=== PATIENT | male | born 1950 | race Caucasian/White ===

== ENCOUNTER 2017-07-30 08:56 | Day surgery (SDC) | payer MEDICARE, OTHER ==
[2017-07-30] VITALS (21 sets, daily range): BP systolic 100–192; BP diastolic 57–103; PULSE 76–87; RESP 9–22; Ht 172.7 cm; Wt 60.6 kg
[~2017-07-30] VITALS: Ht 172.7 cm; Wt 60.6 kg
[~2017-07-30 08:56] MED LIST: DIAZEPAM 5 MG TAB PO ONE; METF1000 PO; SOD CHLORIDE 0.9% 1,000 ML IV SCH
[2017-07-30] MEDS ORDERED: ASPI-664 PO (09:36)
[2017-07-30] MEDS ORDERED: CANA100T PO (09:36)
[2017-07-30] MEDS ORDERED: DOCU250C68 PO (09:37)
[2017-07-30] MEDS ORDERED: THYR30TA PO (09:38)
[2017-07-30] MEDS ORDERED: LISI-313 PO ×2 (09:38→13:26)
[2017-07-30] MEDS ORDERED: OMEP20CA16 PO (09:38)
[2017-07-30] MEDS ORDERED: CHOL100062 PO (09:39)
[2017-07-30] MEDS ORDERED: DICL112S2 TP (09:41)
[2017-07-30] MEDS ORDERED: LANT3I SC (09:43)
[2017-07-30] MEDS ORDERED: HEPARIN 1000 UNITS/NS (A-LINE) 1,000 ML ONE (11:08)
[2017-07-30] MEDS ORDERED: LIDOCAINE 1% (MDV) 20 ML INJ ONE (11:08)
[2017-07-30] MEDS ORDERED: IODIXANOL LOCM 100 ML BTL ONE ×2 (11:09→13:10)
[2017-07-30] MEDS ORDERED: HEPARIN 1000 UNITS/ML 10 ML INJ ONE (11:12)
[2017-07-30] MEDS ORDERED: NITROGLYCERIN (IC) 100 MCG/ML INJ ONE (11:13)
[2017-07-30] MEDS ORDERED: VERAPAMIL 5 MG INJ ONE (11:13)
[2017-07-30] MEDS ORDERED: MIDAZOLAM 1 MG/ML 2 ML INJ ONE (11:25)
[2017-07-30] MEDS ORDERED: FENTAnyl 50 MCG/ML VIAL ONE (11:25)
[2017-07-30 11:52] LABS: BASOPHIL # 0.1 10^3/ul (0.0-0.1); BASOPHILS % 0.7 % (0.0-2.0); EOSINOPHILS # 0.2 10^3/ul (0.0-0.5); EOSINOPHILS % 3.4 % (0.0-7.0); HEMATOCRIT 31.9 % (42.0-52.0); HEMOGLOBIN 10.7 g/dl (14.0-18.0); INR 1.03; LYMPHOCYTES # 2.4 10^3/ul (0.8-2.9); LYMPHOCYTES % 33.3 % (15.0-51.0); MEAN CORPUSCULAR HEMOGLOBIN 31.2 pg (29.0-33.0); MEAN CORPUSCULAR HGB CONC 33.5 g/dl (32.0-37.0); MEAN PLATELET VOLUME 9.9 fl (7.4-10.4); MONOCYTE # 0.6 10^3/ul (0.3-0.9); MONOCYTES % 8.3 % (0.0-11.0); NEUTROPHILS % 53.9 % (39.0-77.0); PLATELET COUNT 228 10^3/UL (140-415); PROTIME 13.5 Sec (12.2-14.2); PT RATIO 1.1; RED BLOOD COUNT 3.43 10^6/ul (4.70-6.10); RED CELL DISTRIBUTION WIDTH 13.5 % (11.5-14.5); WHITE BLOOD COUNT 7.1 10^3/ul (4.8-10.8)
[2017-07-30 12:05] LABS: CALCIUM 9.6 mg/dl (8.4-10.2); CREATININE 0.81 mg/dl (0.61-1.24); POTASSIUM 4.4 mmol/L (3.5-5.1)
[2017-07-30] MEDS ORDERED: ADENOSINE 90 MG in SOD CHLORIDE 0.9% 90 ML IV SCH (12:30)
[2017-07-30] MEDS ORDERED: SOD CHLORIDE 0.45% 1,000 ML IV SCH (13:18)
[2017-07-30] MEDS ORDERED: ONDANSETRON 4 MG INJ IV PRN (13:30)
[2017-07-30] MEDS ORDERED: morphine 2 MG INJ IV PRN (13:30)
[2017-07-30] MEDS ORDERED: AL HYDROX/MG HYDROX/SIMETH 30 ML CUP PO PRN (13:30)
[2017-07-30] MEDS ORDERED: ACETAMINOPHEN 325 MG TAB PO PRN (13:30)
[2017-07-30] MEDS ORDERED: HOLD all METFORMIN and METFORMIN CONTAINING medications for 48 hours post procedure. Chec XX SCH (13:30)
--- NOTE | 2017-07-30 13:35 | OPR ---
Date/Time of Note Date/Time of Note DATE: 07/30/17 TIME: 13:27 Operative Report Free Text/Dictation Post op short note: Procedure performed 1) Left Heart Catheterization 2) FFR study of LAD and LM 3) Abdominal aortogram with bilateral lower extremity runoff 4) Selective angiogram of right and left common femoral artery with runoff Access: R radial, closure with TR band pressure Medications: IV heparin, IV fentanyl, IV versed, IA nitroglycerine, verapamil, IC nitroglycerine Cath Findings: - LM 30% ostial - LAD: 60% mid LAD prior to patent, diffuse disease in distal LAD - LCx: non dominant mid 50% - RI: no significant disease - RCA: very large dominant vessel with diffuse 20% disease LE angiogram Bilateral common/external iliacs: no signficant disease Bilateral SFA: mild diffuse disease Bilateral Popliteal: no significant disease Bilateral infrapop: patent 3 vessel runoff to foot hemodynamics: LVEDP 26mmHg no sig gradient on pull back Impression: - Patent mid LAD stent with stenosis prior to stent, FFR 0.81 safe to treat medically - FFR of 0.96 of LM - elevated lV filling pressures - no significant PAD with 3 vessel runoff to bilateral feet Recommendations: - medical management of coronary artery disease - improved bp control - workup for alternative etiology of le ulceration - close followup in clinic as outpt MAKENNA ALICEA Jul 30, 2017 13:35
[2017-07-30] MEDS ORDERED: LISINOPRIL 10 MG TAB PO ONE (14:30)
[2017-07-30] MEDS ORDERED: hydrALAzine 20 MG INJ IV ONE (14:30)
--- NOTE | 2017-07-30 17:44 | CARRPT ---
DATE OF PROCEDURE: 07/30/2017 OPERATION PERFORMED: 1. Left heart catheterization. 2. Fractional flow reserve study of the left anterior descending, left main arteries. 3. Abdominal angiogram with bilateral lower extremity runoff. 4. Selective angiogram of the right femoral artery and left femoral artery. SURGEON: Pako Madsen MD REFERRING PHYSICIAN: Jw Sifuentes MD PREOPERATIVE DIAGNOSIS: 1. Coronary artery disease. 2. Angina pectoris. 3. Lower extremity ulceration with peripheral arterial disease. POSTOPERATIVE DIAGNOSIS: 1. Coronary artery disease with patent left anterior descending coronary artery stent and fraction flow reserve 0.81. 2. Mild peripheral arterial disease. DESCRIPTION OF PROCEDURE: Patient was brought to receiver/laborer after informed consent obtained in stable condition. Right wrist was prepped and draped in usual sterile fashion, anesthetized with 1 percent lidocaine solution, 1 mL of solution. Right radial access was obtained with anterior stick method and 6-[place] [employer] slender sheath was placed in right radial artery without difficulty. A 6-[place] TIG 4-0 diagnostic catheter was advanced to the ascending aorta under fluoroscopic guidance. Cine angiograms were then obtained of the left and right coronary arteries. TIG catheter was advanced over a wire to the left ventricle and pressures were obtained including LV to LA pullback. At this point, decision was made to study the mid LAD lesion in more detail. TIG catheter was then exchanged for a XB3.0 6-[place] guiding catheter. ACT was checked and additional IV heparin was given and additionally ACT was checked and confirmed to be in therapeutic range. Intracoronary nitroglycerin was given. A [employer] FFR wire was then normalized in standard fashion and advanced in the distal LAD without difficulty. Adenosine infusion was then initiated IV at a rate of 180 mcg/kg/minute. FFR study showed low at 0.81 across the mid LAD lesion. Pullback to the left main showed FFR value of 0.96. FFR wire was also advanced to the mid left circumflex branch with a value of 0.93. FFR wire was then removed and angiograms were obtained showing no evidence of complication with FFR procedure. XP catheter was then removed and exchanged for a 6-[place] straight pigtail catheter was advanced over a wire to the abdominal aorta. Abdominal aorta with bilateral external iliac and lower extremity runoff was obtained. Patient's angiograms were obtained. It was unclear whether there was complete 3-vessel runoff to the legs and, therefore, pigtail catheter was exchanged for a 150 cm Onlen catheter with 4-[place] was then advanced to the left common femoral artery under ultrasound guidance. Common femoral selective angiogram with runoff to the left foot was obtained. Nolen catheter was then withdrawn and advanced over wire to the right common femoral artery under fluoroscopic guidance. Again, selective angiogram was obtained of common femoral artery with runoff to the foot on the right side. At this point, procedure was concluded. All catheter and wires were removed. TR band was used to obtain hemostasis of the right radial artery without difficulty. Patient tolerated procedure well without complication. ESTIMATED BLOOD LOSS: Less than 30 mL. COMPLICATIONS: None. SPECIMEN OBTAINED: None. HEMODYNAMICS: LVEDP is 26 mmHg without significant gradient on LV or LA pullback. OPERATIVE FINDINGS AT SURGERY: Coronary Anatomy 1. Left main: Ostial 30 percent stenosis. 2. LAD: Proximal LAD is without significant disease. There is a high diagonal 1 vessel which has a proximal 20-30 percent lesion, TIMI3 flow. The mid LAD after D1 vessel has a 60 percent stenosis and is immediately followed by patent LAD stent which has mild 30 percent in-stent restenosis. Distal LAD has diffuse 20-30 percent disease. There is a D2 vessel which is jailed by the mid LAD stent which has a severe, diffuse 99 percent disease and a small vessel with TIMI2 flow. 3. Left circumflex: Nondominant vessel. There is a high OM1 branch which has no significant disease. The left circumflex has a mid 50 percent lesion which is long. There is also smaller OM2 and OM3 vessels without disease. 4. Right coronary artery: A very large dominant artery. There is diffuse, proximal disease 20 percent. The mid RCA has a long 20-30 percent lesion as well. Distal RCA has a early bifurcation of a large posterolateral and RPDA system which have mild 20 percent diffuse disease. Abdominal Aortogram: No significant ectasia or aneurysm noted in the lower abdominal aorta. Bifurcates into large bilateral common iliac arteries which are without disease. External iliacs are without disease bilaterally with patent internal iliac arteries bilaterally. On the right, there is patent profunda femoral artery and large SFA which has mild disease in the proximal 10-20 percent. The right mid SFA has diffuse moderate calcification and diffuse 10-20 percent disease. The distal SFA has mild 20 percent disease. The right popliteal artery without disease. It bifurcates into a large anterior tibial artery and tibial peroneal artery which are without disease. The TP artery bifurcates into the posterior tibial and peroneal artery which are patent to the foot without significant disease. The peroneal stops at the ankle and the AT continues onto the anterior tibial on the posterior tibial in the foot as well as the posterior tibial patent and running to the posterior tibial artery in the right foot. On the left, the left external iliac gives rise to the left common femoral artery without disease. The left profunda femoral artery is patent as well. The left SFA is without significant disease in the proximal portion. The mid portion has mild 10 percent luminal irregularities. No significant disease. The left popliteal is without disease. It gives rise to a large anterior tibial artery which is without disease as well as a tibial peroneal artery which is without disease. The TP artery bifurcates to a peroneal artery as well as dorsalis pedis artery which runs to the foot. The proximal peroneal and TP arteries both have mild 20-30 percent stenosis. There does also appear to be a 50-60 percent lesion noted in the mid right posterior tibial artery. FFR Study: Left main 0.96, mid LAD 0.81. IMPRESSION: 1. [id number] coronary artery disease with patent mid left anterior descending artery stent and [id number] in- stent restenosis. Fractional flow reserve across pre-stent lesion is 0.81. for PCI and continue with medical management. 2. Small second diagonal vessel which is jailed. 3. Mild peripheral arterial disease. RECOMMENDATIONS: 1. Continue maximal medical therapy for coronary artery disease with titration of antianginals and improve blood pressure control as well as aspirin and statin therapy. 2. Continue treatment for mild peripheral arterial disease. This is unlikely cause of current ulceration. Alternative etiology should be evaluated as outpatient. 3. Results were discussed with patient and will be followed up closely as outpatient in clinic. Dictated By: Pako Madsen MD /sacha/maddison Garcia#: [id number]/Document#: [id number]
== END 2017-07-30 19:00 | disposition home or self-care (01) ==
LOC: SDS 08:56
PROVIDERS: ATTEND Internal Medicine Interventional Cardiology
DX: I25.119 Atherosclerotic heart disease of native coronary artery with unspecified angina pectoris (principal); I73.9 Peripheral vascular disease, unspecified; L97.929 Non-pressure chronic ulcer of unspecified part of left lower leg with unspecified severity; I10 Essential (primary) hypertension; E03.9 Hypothyroidism, unspecified
CPT/HCPCS: 75630; 80048; 82962; 85025; 85610; 93458; 93571; C1769; C1887; J0153; J0360; J1644; J2250; J3010; Q9967

== ENCOUNTER 2018-07-21 06:50 | Day surgery (SDC) | END 2018-07-21 14:22 | disposition home or self-care (01) ==

== ENCOUNTER 2018-11-26 16:00 | Inpatient (IN) | payer MEDICARE, OTHER ==
[~2018-11-26] VITALS: Ht 172.7 cm; Wt 66.7 kg
[~2018-11-26 16:00] MED LIST changes: +ASPI81TA52 PO; +DAPA10TA PO; -DIAZEPAM 5 MG TAB PO ONE; +DOCU250C68 PO; +LANT3I SC; +LISI-313 PO; -METF1000 PO; +METF100010 PO; +OMEP20CA16 PO; -SOD CHLORIDE 0.9% 1,000 ML IV SCH; +THYR30TA PO
[2018-11-26] MEDS ORDERED: ALBUTEROL 0.5% (NEB) 2.5 MG/0.5 ML AMP INH STA (16:45)
[2018-11-26] MEDS ORDERED: SODIUM CHLORIDE 0.9% 1L BAG IV* STA ×2 (16:45)
[2018-11-26] MEDS ORDERED: METHYLPREDNISOLONE 125 MG INJ IV STA (16:45)
[2018-11-26] MEDS ORDERED: IPRATROPIUM (NEB) 0.5 MG/2.5 ML AMP INH STA (16:45)
[2018-11-26] MEDS ORDERED: IBUPROFEN 600 MG TAB PO ONE (17:00)
[2018-11-26] MEDS ORDERED: METO-335 PO (17:04)
[2018-11-26] MEDS ORDERED: METF100010 PO (17:04)
[2018-11-26] MEDS ORDERED: GABA-526 PO (17:04)
[2018-11-26] MEDS ORDERED: PENT400T9 PO (17:05)
[2018-11-26] MEDS ORDERED: AMLO-147 PO (17:05)
[2018-11-26] MEDS ORDERED: DICL2SOL TP (17:07)
[2018-11-26] MEDS ORDERED: ASPI-817 PO (17:07)
[2018-11-26] MEDS ORDERED: ALEN70TA5 PO (17:08)
[2018-11-26] MEDS ORDERED: FER325 PO (17:08)
[2018-11-26] MEDS ORDERED: DAPA10TA PO (17:08)
[2018-11-26] MEDS ORDERED: LANT3I SC (17:09)
[2018-11-26] MEDS ORDERED: ERGO500013 PO (17:09)
[2018-11-26] MEDS ORDERED: ATOR20TA38 PO (17:10)
[2018-11-26] MEDS: CEFTRIAXONE 1 GM/50 ML (PMX) 50 ML IVPB ONE ×2 (17:11→17:23)
[2018-11-26] MEDS ORDERED: AZITHROMYCIN 500MG/NS (PMX) 250 ML IVPB ONE (18:00)
[2018-11-26] MEDS ORDERED: CEFEPIME 1GM/50 ML (PMX) 50 ML IVPB ONE (18:00)
--- NOTE | 2018-11-26 19:18 | ERD ---
ER Documentation Chief Complaint Chief Complaint BIB RA for: CP HPI 67-year-old man brought in by EMS from senior living for complaints of chest pain. Patient has been coughing today and has felt short of breath, he has had thick purulent mucus secretions with cough. He states the chest pain is sharp and precipitated by coughing. He has had no calf or leg swelling, no vomiting or diarrhea. HPI was limited given the patient's mental status although was supplemented by speaking to him, reviewing past medical history, reviewing senior living records, and speaking to EMS. ROS All systems reviewed and are negative except as per history of present illness. Medications Home Meds Reported Medications Atorvastatin Calcium* (Atorvastatin Calcium*) 20 Mg Tablet, 20 MG PO QHS, #30 TAB 11/26/18 Insulin Glargine* (Lantus*) 100 Unit/Ml Soln, 20 UNIT SC DAILY, #1 VIAL 11/26/18 Ergocalciferol (Vitamin D2) (VITAMIN D2) 50,000 Unit Capsule, 24138 UNIT PO Q7D, CAP 11/26/18 Ferrous Sulfate* (Ferrous Sulfate*) 325 Mg Tabec, 325 MG PO BID, TAB 11/26/18 Dapagliflozin Propanediol (Farxiga) 10 Mg Tablet, 10 MG PO DAILY, #30 TAB 11/26/18 Alendronate Sodium* (Fosamax*) 70 Mg Tablet, 70 MG PO Q7D, #4 TAB 11/26/18 Aspirin* (Aspirin* EC) 81 Mg Tablet.dr, 81 MG PO DAILY, TAB 11/26/18 Diclofenac Sodium (Pen[place]aid) 2 Gm Soln.pk.g., 2 PUMP TP BID 11/26/18 Pentoxifylline* (Pentoxifylline*) 400 Mg Tablet.sa, 400 MG PO WITH MEALS, TAB 11/26/18 Amlodipine Besylate* (Amlodipine Besylate*) 10 Mg Tablet, 10 MG PO DAILY, #30 TAB 11/26/18 Metformin Hcl* (Metformin Hcl*) 1,000 Mg Tablet, 1000 MG PO WITH BREAKFAST DINNE, #60 TAB 11/26/18 Metoprolol Succinate* (Toprol XL*) 25 Mg Tab.sr.24h, 25 MG PO DAILY, #30 TAB 11/26/18 Gabapentin* (Gabapentin*) 600 Mg Tablet, 600 MG PO TID, #90 TAB 11/26/18 Discontinued Reported Medications Dapagliflozin Propanediol (Farxiga) 10 Mg Tablet, 10 MG PO DAILY, #30 TAB 07/21/18 Insulin Glargine* (Lantus*) 100 Unit/Ml Soln, 13 UNIT SC DAILY, #1 VIAL 07/30/17 Thyroid* ([place] Thyroid*) 30 Mg Tablet, 30 MG PO DAILY, TAB 07/30/17 Omeprazole* (Omeprazole*) 20 Mg Capsule.dr, 20 MG PO DAILY, #30 CAP 07/30/17 Docusate Sodium* (Dok*) 250 Mg Capsule, 250 MG PO BID, #60 CAP 07/30/17 Aspirin (Low Dose Aspirin) 81 Mg Tablet.dr, 81 MG PO DAILY, #30 TAB 07/30/17 Metformin Hcl* (Metformin Hcl*) 1,000 Mg Tablet, 1000 MG PO BID WITH MEALS, TAB 08/12/15 Discontinued Scripts Lisinopril* (Lisinopril*) 5 Mg Tablet, 10 MG PO DAILY, #30 TAB Prov:DEANNEMAKENNA PRUITT 07/30/17 Allergies Allergies: Coded Allergies: No Known Drug Allergies (Verified Allergy, Unknown, 11/26/18) PMhx/Soc Dementia, hypothyroidism, hypertension, gastritis, hyperlipidemia History of Surgery: Yes (CIRCUMCISION) Anesthesia Reaction: No Hx Neurological Disorder: No Hx Respiratory Disorders: No Hx Cardiac Disorders: Yes (HTN, AMI) Hx Psychiatric Problems: Yes (ANXIETY, DEPRESSION) Hx Miscellaneous Medical Probl: Yes (arthritis, osteoporosis) Hx Alcohol Use: Yes (STOPPED) Hx Substance Use: No Hx Tobacco Use: Yes Smoking Status: Former smoker FmHx Family History: No diabetes Physical Exam Vitals Vital Signs Date Temp Pulse Resp B/P (MAP) Pulse Ox O2 O2 Flow FiO2 Time Delivery Rate 11/26/18 119 19 127/62 100 18:35 (83) 11/26/18 92 20 96 21 16:58 11/26/18 93 12 154/80 96 Room Air 16:48 (104) 11/26/18 99.3 97 19 175/90 98 16:22 (118) Physical Exam Const: Febrile, dyspneic otherwise well-developed, appears dehydrated HEENT: Positive oropharyngeal thick secretions, dry mucous membranes Resp: Poor breath sounds bilaterally, scattered wheezes, no stridor Cardio: Tachycardic and regular Abd: Soft, non tender, non distended. Skin: No petechiae or rashes Back: No midline or flank tenderness Ext: No cyanosis, or edema Neur: Awake and alert x2, moving all extremities, no focal deficits or facial asymmetry Psych: Normal Mood and Affect Result Diagram: 11/26/18 1713 11/26/18 1713 Results 24 hrs Laboratory Tests Test 11/26/18 17:13 11/26/18 17:17 11/26/18 17:35 White Blood Count 11.2 10^3/ul Red Blood Count 3.83 10^6/ul Hemoglobin 11.7 g/dl Hematocrit 34.6 % Mean Corpuscular Volume 90.3 fl Mean Corpuscular Hemoglobin 30.5 pg Mean Corpuscular 33.8 g/dl Hemoglobin Concent Red Cell Distribution Width 12.8 % Platelet Count 190 10^3/UL Mean Platelet Volume 10.4 fl Immature Granulocytes % 0.400 % Neutrophils % 73.4 % Lymphocytes % 16.2 % Monocytes % 9.8 % Eosinophils % 0.0 % Basophils % 0.2 % Nucleated Red Blood Cells % 0.0 /100WBC Immature Granulocytes # 0.040 10^3/ul Neutrophils # 8.2 10^3/ul Lymphocytes # 1.8 10^3/ul Monocytes # 1.1 10^3/ul Eosinophils # 0.0 10^3/ul Basophils # 0.0 10^3/ul Nucleated Red Blood Cells # 0.0 10^3/ul Prothrombin Time 14.0 Sec Prothrombin Time Ratio 1.1 INR International 1.07 Normalized Ratio Activated Partial Thromboplast 36.4 Sec Time Sodium Level 135 mmol/L Potassium Level 4.5 mmol/L Chloride Level 96 mmol/L Carbon Dioxide Level 29 mmol/L Anion Gap 10 Blood Urea Nitrogen 32 mg/dl Creatinine 1.08 mg/dl Est Glomerular Filtrat > 60 mL/min Rate mL/min Glucose Level 384 mg/dl Calcium Level 8.9 mg/dl Total Bilirubin 0.8 mg/dl Direct Bilirubin 0.00 mg/dl Indirect Bilirubin 0.8 mg/dl Aspartate Amino 22 IU/L Transf (AST/SGOT) Alanine 15 IU/L Aminotransferase (ALT/SGPT) Alkaline Phosphatase 64 IU/L Troponin I 0.033 ng/ml Total Protein 7.4 g/dl Albumin 4.0 g/dl Globulin 3.40 g/dl Albumin/Globulin Ratio 1.17 Lipase 86 U/L POC Venous Lactate 1.6 mmol/L Urine Color YELLOW Urine Clarity SLIGHTLY CLOUDY Urine pH 5.0 Urine Specific [place] 1.024 Urine Ketones TRACE mg/dL Urine Nitrite NEGATIVE mg/dL Urine Bilirubin NEGATIVE mg/dL Urine Urobilinogen NEGATIVE mg/dL Urine Leukocyte Esterase NEGATIVE Sara/ul Urine Microscopic RBC 3 /HPF Urine Microscopic WBC 1 /HPF Urine Hemoglobin 1+ mg/dL Urine Glucose 3+ mg/dL Urine Total Protein 3+ mg/dl Current Medications Medications Dose Sig/Alok Start Time Status Last (Trade) Ordered Route PRN Stop Time Admin Dose Reason Admin Sodium 1,910 ml BOLUS OVER 2 11/26/18 DC 11/26/18 Chloride HOURS STAT 16:45 17:11 (NS) IV* 11/26/18 16:47 Sodium 2,000 ml BOLUS OVER 2 11/26/18 DC Chloride HOURS STAT 16:45 (NS) IV* 11/26/18 16:47 Ceftriaxone 50 ml @ ONCE ONCE 11/26/18 DC 11/26/18 Sodium 100 mls/hr IVPB 17:00 17:23 11/26/18 17:29 Ibuprofen 600 mg ONCE ONCE 11/26/18 DC 11/26/18 (Motrin) PO 17:00 17:11 11/26/18 17:01 Albuterol 10 mg ONCE STAT 11/26/18 DC 11/26/18 (Proventil INH 16:45 16:57 0.5% (Neb)) 11/26/18 16:47 Ipratropium 1 mg ONCE STAT 11/26/18 DC 11/26/18 [place] INH 16:45 16:58 (Atrovent 11/26/18 0.02% 16:47 (Neb)) 125 mg ONCE STAT 11/26/18 DC 11/26/18 Methylprednis IV 16:45 17:11 olone Sodium 11/26/18 Succinate 16:47 (Solu-Medrol) Cefepime HCl 50 ml @ ONCE ONCE 11/26/18 DC 11/26/18 100 mls/hr IVPB 18:00 17:54 11/26/18 18:29 Azithromycin 250 ml @ ONCE ONCE 11/26/18 DC 11/26/18 250 mls/hr IVPB 18:00 18:43 11/26/18 18:59 Procedures/MDM IV line was established patient was placed on library monitor rhythm strip revealed a sinus rhythm at about 80 bpm with upright P and T waves. Patient was febrile, blood and urine cultures have been ordered results are pending I will follow-up. 1 view chest x-ray performed, read by me revealed atelectatic changes bilaterally, no acute infiltrates, no pneumothorax. EKG performed, read by me revealed a normal sinus rhythm at 88 bpm, normal axis, narrow QRS complex, precordial T wave inversions, no concerning ST elevations or depressions noted. I administered cefepime 1 g IV, azithromycin 500 mg IV, albuterol 10 mg via nebulizer, ipratropium 1 mg via nebulizer, methylprednisolone 125 mg IV x1. Respiratory provided in-line suctioning with copious thick mucus secretions produced. Patient's respiratory status improved his initial oxygen saturation prior to suctioning was in the upper 80s and improved to 98% after suctioning. CBC was unremarkable, electrolytes revealed dehydration with a BUN/creatinine of 32/1, liver function tests were normal, troponin was negative, influenza AB swabs were negative Lactic acid was 1.6 although I do not suspect sepsis. Patient will be admitted to telemetry setting for continued medical management, bronchodilator therapy, IV antibiotics Departure Diagnosis: Primary Impression: Chest pain Chest pain type: unspecified Qualified Codes: R07.9 - Chest pain, unspecified Additional Impressions: Acute asthma Bronchitis Dehydration Condition: DEVEN Reyes MD Nov 26, 2018 19:14
[2018-11-26] MEDS ORDERED: SOD CHLORIDE 0.9% 500 ML IV ONE (20:30)
--- NOTE | 2018-11-26 20:46 | HP ---
Date/Time of Note Date/Time of Note DATE: 11/26/18 TIME: 20:46 Assessment/Plan VTE Prophylaxis Pharmacological prophylaxis: LMWH Lines/Catheters IV Catheter Type (from [facility]): Peripheral IV Assessment/Plan Hospital Course This is a [age]-year-old male being admitted to the telemetry floor for: #1 chest pain: Rule out ACS versus upper respiratory infection. Hx of CAD with stent. Given patient's cardiac history we will rule out for ACS. Will trend cardiac enzymes x3, the first that was negative. Will check an echocardiogram. PRN morphine/nitro. Will consult cardiology . Aspirin daily. #2 Suspect healthcare associated pneumonia: Patient does report fevers and cough times 2 weeks and lives at a SNF apparently per ER record. His lung sounds do appear to be coarse and he does have productive sputum. At the current time we will treat him for presumptive pneumonia. We will obtain a chest x-ray in the a.m. We will put him right now on Zosyn and Vanco. Pro- calcitonin, sputum cultures, respiratory culture. PRN nebulizers. #3 Coronary disease: Resume aspirin statin, beta-ayden. Please see #1. #4 osteoporosis: Continue alendronate #5 diabetes mellitus: Resume home insulin, insulin sliding scale, will hold home oral hypoglycemics. #6 peripheral artery disease: resume pentoxyfiline. #7 DVT and GI prophylaxis: Lovenox, no GI prophylaxis indicated Further treatment strategy will be implemented as per the clinical course. Result Diagram: 11/26/18 1713 11/26/18 1713 Results 24hrs Laboratory Tests Test 11/26/18 17:13 11/26/18 17:17 11/26/18 17:35 White Blood Count 11.2 #H Red Blood Count 3.83 L Hemoglobin 11.7 L Hematocrit 34.6 L Mean Corpuscular Volume 90.3 Mean Corpuscular Hemoglobin 30.5 Mean Corpuscular 33.8 Hemoglobin Concent Red Cell Distribution Width 12.8 Platelet Count 190 Mean Platelet Volume 10.4 Immature Granulocytes % 0.400 Neutrophils % 73.4 Lymphocytes % 16.2 Monocytes % 9.8 Eosinophils % 0.0 Basophils % 0.2 Nucleated Red Blood Cells % 0.0 Immature Granulocytes # 0.040 H Neutrophils # 8.2 H Lymphocytes # 1.8 Monocytes # 1.1 H Eosinophils # 0.0 Basophils # 0.0 Nucleated Red Blood Cells # 0.0 Prothrombin Time 14.0 Prothrombin Time Ratio 1.1 INR International 1.07 Normalized Ratio Activated 36.4 H Partial Thromboplast Time Sodium Level 135 Potassium Level 4.5 Chloride Level 96 L Carbon Dioxide Level 29 Anion Gap 10 Blood Urea Nitrogen 32 H Creatinine 1.08 Est Glomerular Filtrat > 60 Rate mL/min Glucose Level 384 H Calcium Level 8.9 Total Bilirubin 0.8 Direct Bilirubin 0.00 Indirect Bilirubin 0.8 Aspartate Amino 22 Transf (AST/SGOT) Alanine 15 Aminotransferase (ALT/SGPT) Alkaline Phosphatase 64 Troponin I 0.033 Total Protein 7.4 Albumin 4.0 Globulin 3.40 H Albumin/Globulin Ratio 1.17 Lipase 86 POC Venous Lactate 1.6 Urine Color YELLOW Urine Clarity SLIGHTLY CLOUDY A Urine pH 5.0 Urine Specific [place] 1.024 Urine Ketones TRACE A Urine Nitrite NEGATIVE Urine Bilirubin NEGATIVE Urine Urobilinogen NEGATIVE Urine Leukocyte Esterase NEGATIVE Urine Microscopic RBC 3 Urine Microscopic WBC 1 Urine Hemoglobin 1+ H Urine Glucose 3+ H Urine Total Protein 3+ H HPI/ROS Admit Date/Time Admit Date/Time Hx of Present Illness cc: 2 weeks cough, cp x 1 day The following history was obtained from the ED physician documentation as well as from the patient. Please note the patient is a poor historian. 67-year-old man brought in by EMS from [facility] for complaints of chest pain. Patient has been coughing today and has felt short of breath, he has had thick purulent mucus secretions with cough. He states the chest pain is sharp and precipitated by coughing. He has had no calf or leg swelling, no vomiting or diarrhea. Upon my examination patient at the bedside he does not report any chest pain at the current time. he is still coughing significantly with productive sputum. Allergies: NKDA Medications: See Const: As per HPI Eyes : No pain discharge or redness or change in visual acuity ENT: No pain, sore throat, congestion, congestion, dysphagia or discharge Respiratory: As per HPI Cardiovascular: As per HPI GI : no change in appetite, abdominal pain, nausea, vomiting, diarrhea, constipation, or change in the color his stool Genitourinary: No dysuria, hematuria, flank pain , discharge or CVA tenderness Musculoskeletal: No joint pain, back pain, neck pain, restricted range of motion in neck or joints Skin: No rash, bruising or hives Neuro: No headache, dizziness, syncope, seizure, focal weakness Endocrine: No polyuria, polydipsia, temperature intolerance Psych: No hallucination, depression, anxiety or suicidal ideation PMH/Family/Social Past Medical History Iron deficiency anemia, diabetes mellitus, hyperlipidemia, osteoporosis, hypertension, coronary artery disease, peripheral artery disease Medications Current Medications Sodium Chloride 500 ml @ 500 mls/hr Q1H ONCE IV ; Start 11/26/18 at 20:30; Stop 11/26/18 at 21:29 Alendronate Sodium (Fosamax) 70 mg Q7D PO ; Start 11/26/18 at 21:00; Status UNV Aspirin (Halfprin) 81 mg DAILY PO ; Start 11/27/18 at 09:00; Status UNV Atorvastatin Calcium (Lipitor) 20 mg QHS PO ; Start 11/26/18 at 21:00; Status UNV Ergocalciferol (Drisdol) 50,000 unit Q7D PO ; Start 11/26/18 at 21:00; Status UNV Ferrous Sulfate (Ferrous Sulfate (Ec)) 325 mg BID PO ; Start 11/26/18 at 21:00; Status UNV Gabapentin (Neurontin) 600 mg TID PO ; Start 11/26/18 at 21:00; Status UNV Insulin Glargine (Lantus) 20 units DAILY SC ; Start 11/26/18 at 21:00; Status UNV Miscellaneous Information (* Miscellaneous Pharmacy Order) Discontinue current oral sulfonylur... ONCE ONCE XX ; Start 11/26/18 at 21:00; Stop 11/26/18 at 21:01; Status UNV Diagnostic Test (Pha) (Accu-Chek) 1 ea XX ; Start 11/27/18 at 02:00; Status UNV Miscellaneous Information (* Miscellaneous Pharmacy Order) HYPOGLYCEMIA PROTOCOL w... ONCE ONCE XX ; Start 11/26/18 at 21:00; Stop 11/26/18 at 21:01; Status UNV Insulin Aspart (Novolog Insulin Pen) NOVOLOG *MILD* ALGORITHM WITH MEALS BEDTIME SC ; Start 11/26/18 at 21:00; Status UNV Miscellaneous Information (* Miscellaneous Pharmacy Order) Discontinue all previ... ONCE ONCE XX ; Start 11/26/18 at 21:00; Stop 11/26/18 at 21:01; Status UNV IV Flush (NS 3 ml) 3 ml PER PROTOCOL IV ; Start 11/26/18 at 21:00; Status UNV Ondansetron HCl (Zofran Inj) 4 mg Q6H PRN IV NAUSEA AND/OR VOMITING; Start 11/26/18 at 21:00; Status UNV Nitroglycerin (Nitroglycerin (Sl Tab) 0.4 Mg) 1 tab Q5M PRN SL CHEST PAIN; Start 11/26/18 at 21:00; Status UNV Acetaminophen (Tylenol Tab) 650 mg Q6H PRN PO PAIN LEVEL 1-3 OR FEVER; Start 11/26/18 at 21:00; Status UNV Docusate Sodium (Colace) 100 mg Q12H PRN PO CONSTIPATION; Start 11/26/18 at 21:00; Status UNV Bisacodyl (Dulcolax) 5 mg DAILY PRN PO CONSTIPATION; Start 11/26/18 at 21:00; Status UNV Enoxaparin Sodium (Lovenox) 40 mg DAILY SC ; Start 11/26/18 at 21:00; Status UNV Coded Allergies: No Known Drug Allergies (Verified Allergy, Unknown, 11/26/18) Past Surgical History History of cardiac stent Family History Significant Family History: no pertinent family hx Social History Alcohol Use: none Smoking Status: Former smoker Drug Use: none Exam/Review of Systems Vital Signs Vitals Vital Signs Date Temp Pulse Resp B/P (MAP) Pulse Ox O2 O2 Flow FiO2 Time Delivery Rate 11/26/18 107 14 104/49 98 Nasal 2.0 19:56 (67) Cannula 11/26/18 21 16:58 11/26/18 99.3 16:22 Exam Exam General: Patient is currently lying in bed he does not appear to be in any acute distress. He is coughing with a productive cough denies chest pain HEENT: Atraumatic, normocephalic. The pupils are equal, round and reactive. Extraocular motor are intact Neck: Supple with full range of motion. No rigidity or meningismus Chest: Nontender Lungs: Adventitious/coarse breath sounds bilaterally, nonlabored breathing Heart: Normal S1-S2, Regular rhythm and rate. Abdomen: Soft , nontender, nondistended , bowel sounds are present. No guarding no rebound tenderness , No masses or organomegaly. No costovertebral temporal angle mass Extremities: Normal to inspection, no edema no cyanosis Neurologic: Normal mental status, speech normal, cranial nerves II through XII are intact, motor and sensory are intact, no focal weakness Additional Comments PROCEDURE: Chest x-ray CLINICAL INDICATION: Shortness of breath TECHNIQUE: Chest single view COMPARISON: 08/16/2015 FINDINGS: The heart is normal in size. The pulmonary vessels are normal in caliber. Lung volumes are low with linear bibasilar atelectasis. The costophrenic angles are sharp. The visualized bony thorax is unremarkable. IMPRESSION: Low lung volumes with linear bibasilar atelectasis RPTAT: HH .Lennox Hutson MD, Date Time Electronically viewed and signed by .Lennox Hutson MD, MD on 11/26/2018 17:25 .W/ CC: DEVEN SWIFT MD [phone] EKG performed, normal sinus rhythm at 88 bpm, normal axis, narrow QRS complex, precordial T wave inversions, no concerning ST elevations or depressions noted. PRINCE MCLEAN Nov 26, 2018 20:46
[2018-11-26] MEDS ORDERED: NACL 0.9% 3 ML SYG IV SCH (21:00)
[2018-11-26] MEDS ORDERED: INSULIN ASPART [NOVOLOG] 3 ML PEN SC SCH (21:00)
[2018-11-26] MEDS ORDERED: LEVALBUTEROL (NEB) 1.25 MG/0.5 ML AMP HHN PRN (21:00)
[2018-11-26] MEDS ORDERED: ACETAMINOPHEN 325 MG TAB PO PRN (21:00)
[2018-11-26] MEDS ORDERED: BISACODYL (EC) 5 MG TAB PO PRN (21:00)
[2018-11-26] MEDS ORDERED: NITROGLYCERIN (SL) 0.4 MG TAB SL PRN (21:00)
[2018-11-26] MEDS ORDERED: DOCUSATE SODIUM 100 MG CAP PO PRN (21:00)
[2018-11-26] MEDS ORDERED: ENOXAPARIN 40 MG/0.4 ML SYG SC SCH (21:00)
[2018-11-26] MEDS ORDERED: ONDANSETRON 4 MG INJ IV PRN (21:00)
[2018-11-26] MEDS ORDERED: DEXTROSE 50% 50 ML SYRINGE IV PRN ×2 (22:00)
[2018-11-26] MEDS ORDERED: GLUCAGON 1 MG INJ IM PRN (22:00)
[2018-11-26] MEDS ORDERED: GLUCOSE GEL 15 GRAM TUBE PO PRN ×2 (22:00)
[2018-11-26] MEDS ORDERED: GLUCOSE GEL 15 GRAM TUBE BUCCAL PRN (22:00)
[2018-11-26 22:03] VITALS: PULSE 103
[2018-11-26 22:21] VITALS: BP 155/73; PULSE 103; RESP 18
[2018-11-26 22:54] VITALS: Ht 172.7 cm; Wt 66.7 kg
[2018-11-26] MEDS ORDERED: INSULIN ASPART [NOVOLOG] 3 ML PEN SC ONE (23:00)
[2018-11-26] MEDS: ERGOCALCIFEROL 50,000 UNIT CAP PO SCH (23:11)
[2018-11-26] MEDS: FERROUS SULFATE (EC) 325 MG TAB PO SCH (23:11)
[2018-11-26] MEDS: GABAPENTIN 300 MG CAP PO SCH (23:11)
[2018-11-26] MEDS: INSULIN GLARGINE [LANTus] (100 UNITS/ML) SYG SC SCH (23:18)
[2018-11-26] MEDS: ATORVASTATIN 20 MG TAB PO SCH (23:18)
--- NOTE | 2018-11-26 23:32 | NUR ---
blood glucose 407, repeat test 425, stat random blood glucose ordered per protocol, Dr. Wilson notified, got order to give total of 6 units Novolog, will continue to monitor patient
[2018-11-27] VITALS (10 sets, daily range): BP systolic 107–152; BP diastolic 58–81; PULSE 71–100; RESP 16–18
[2018-11-27] MEDS: ACCU-CHEK XX SCH (02:17)
[2018-11-27] MEDS ORDERED: INSULIN ASPART [NOVOLOG] 3 ML PEN SC ONE (02:30)
--- NOTE | 2018-11-27 03:10 | NUR ---
Dr. Wilson notified of blood glucose 333 at 2 am, got order for Novolog 6 units, will continue to monitor patient
[2018-11-27] MEDS: PIPER-TAZO 3.375 GM IV (PMX) 100 ML IVPB SCH ×4 (06:47→23:45)
--- NOTE | 2018-11-27 06:57 | NUR ---
EOSS, Pt AOX 4, malawian speaking Ambulatory with assist and use of wheel walker, Vital signs stable. no c/o chest pain, with minimal productive white secretion
[2018-11-27] MEDS ORDERED: ASPIRIN 325 MG TAB PO ONE (07:30)
--- NOTE | 2018-11-27 07:39 | NUR ---
troponin 2.910, patient denies chest pain, Dr. Wilson notified, got order for stat EKG; EKG done, will endorse to dayshift nurse
[2018-11-27] MEDS: PENTOXIFYLLINE (SR) 400 MG TAB PO SCH ×3 (07:50→17:27)
[2018-11-27] MEDS: INSULIN ASPART [NOVOLOG] 3 ML PEN SC SCH ×4 (07:54→20:51)
[2018-11-27] MEDS: FERROUS SULFATE (EC) 325 MG TAB PO SCH ×2 (08:39→20:43)
[2018-11-27] MEDS: ASPIRIN (EC) 81 MG TAB PO SCH (08:39)
[2018-11-27] MEDS: GABAPENTIN 300 MG CAP PO SCH ×3 (08:39→20:43)
[2018-11-27] MEDS: AMLODIPINE 10 MG TAB PO SCH (08:39)
[2018-11-27] MEDS: INSULIN GLARGINE [LANTus] (100 UNITS/ML) SYG SC SCH (08:41)
[2018-11-27] MEDS: ENOXAPARIN 80 MG/0.8 ML SYG SC SCH ×2 (08:43→20:49)
[2018-11-27] MEDS ORDERED: VANCOMYCIN IV PER PHARMACY XX SCH (09:30)
[2018-11-27] MEDS ORDERED: VANCOMYCIN 1.25 GM in SOD CHLORIDE 0.9% 250 ML IVPB SCH (11:00)
--- NOTE | 2018-11-27 11:22 | NUR ---
1122: Text paged Farhad Zhou to inform him of trop 2.2 and that there is no cardiology consult onboard. I also texted Ravinder Bah but he said he doesn`t know the patient although his name appeared on the echo order.
--- NOTE | 2018-11-27 12:00 | NUR ---
Per Farhad Zhou, patient will be seen by Dr. Herbert today. Patient has no c/o chest pain or SOB.
--- NOTE | 2018-11-27 12:13 | RADRPT ---
Vent Rate: 79 bpm RR Interval: 0 msec IL Interval: 150 msec QRS Duration: 92 msec QT Interval: 404 msec QTC Interval: 463 msec P-R-T [place]: 59 - 1 - 0 degrees Normal sinus rhythm Septal infarct , age undetermined T wave abnormality, consider lateral ischemia Abnormal ECG Electronically Signed By: Haja Conley [id number]
--- NOTE | 2018-11-27 13:22 | NUR ---
VANCO PER RX: 67 M 5FT 8 IN. 67 KG SCR 0.83 WBC 13.5 Problem List: Suspect healthcare associated pneumonia, chest pain: Rule out ACS versus upper respiratory infection, DM, PAD Current ABXs: HUSSAIN GRISSOM Comments/Plan: VANCO 1.25 GM X1 (GIVEN) FOLLOWED BY 1 GM IVPB Q12H. TROUGH TOMORROW NIGHT.
--- NOTE | 2018-11-27 15:26 | PN ---
Date/Time of Note Date/Time of Note DATE: 11/27/18 TIME: 15:25 Assessment/Plan VTE Prophylaxis Risk score (from [facility])>0 risk: 2 [place] [facility] [place] contraindicated: other Pharmacological prophylaxis: LMWH Lines/Catheters IV Catheter Type (from [facility]): [place] Assessment/Plan Hospital Course SUBJECTIVE: Complains of sore throat. Complains of dyspnea. Denies any chest pain. OBJECTIVE: Physical Exam General: Adequately build 67 year-old male lying in bed in no apparent distress. HEENT: Normocephalic, atraumatic. Eyes: Anicteric sclerae, conjunctivae clear. ENT: Nasal septum midline, oral mucosa moist. Neck supple, no JVD noticed. Respiratory: Bilaterally diminished breath sounds. No use of accessory muscles of respiration. No adventitious breath sounds. Cardiovascular: S1, S2 heard. Regular rate and rhythm. Abdomen: Soft, nontender, and nondistended. Bowel sounds positive in all 4 quadrants. Genitourinary: Deferred. Extremities: No cyanosis, no clubbing, no edema. Peripheral pulses palpable. Neurologic: Cranial nerves II through XII grossly intact. The patient is awake, alert, and oriented. Skin: Normal skin turgor. No skin rashes. Labs & Vitals per chart ASSESSMENT & PLAN This is a 67-year-old male with comorbidities including hypertension, diabetes mellitus type 2, iron deficiency anemia, coronary artery disease status post coronary artery stenting, dyslipidemia, and peripheral artery disease. The pa shelby came to the emergency room with chief complaint of productive cough with chills and a thick purulent mucus production and sore throat. The patient also verbalized abdominal pain and diarrhea. The patient also was complaining of chest pain times 1 day. In the emergency room, the patient's chest x-ray was showing low lung volumes and bibasilar linear atelectasis. The patient had a minimal leukocytosis. The patient remained afebrile. The patient was admitted to inpatient setting for further treatment and evaluation. 1. Systemic inflammatory response syndrome with leukocytosis and tachycardia. -Pancultures obtained. -Continue antimicrobials Zosyn plus Vanco. 2. Suspect upper respiratory infection. -Continue antimicrobials. -Obtain rapid strep. 3. NSTEMI. -Continue therapeutic dose of Lovenox. -Continue antiplatelet therapy. -Cardiology consult has been obtained. 4. Diabetes mellitus type 2. -Continue sliding scale insulin along with basal insulin. -Hemoglobin A1c 8.8. 5. Dyslipidemia. -Continue statins. 6. Essential hypertension. -Continue antihypertensives. 7. Chronic iron deficiency anemia. -Continue iron supplements. 8. Peripheral artery disease. -Continue pentoxifylline. 9. Fluids, electrolytes, and nutrition. -Carbohydrate controlled diet. 10. DVT prophylaxis. -On therapeutic Lovenox. 11. Plan. -Continue therapeutic Lovenox. -Continue statins and aspirin. -Await cardiology evaluation. The patient was seen in collaboration with Dr. Taylor. Result Diagram: 11/27/18 0536 11/27/18 0536 Results 24hrs Laboratory Tests Test 11/26/18 17:13 11/26/18 17:17 11/26/18 17:35 11/26/18 21:14 White Blood 11.2 #H Count Red Blood Count 3.83 L Hemoglobin 11.7 L Hematocrit 34.6 L Mean 90.3 Corpuscular Volume Mean 30.5 Corpuscular Hemoglobin Mean 33.8 Corpuscular Hemoglobin Conc ent Red Cell 12.8 Distribution Width Platelet Count 190 Mean Platelet 10.4 Volume Immature 0.400 Granulocytes % Neutrophils % 73.4 Lymphocytes % 16.2 Monocytes % 9.8 Eosinophils % 0.0 Basophils % 0.2 Nucleated Red 0.0 Blood Cells % Immature 0.040 H Granulocytes # Neutrophils # 8.2 H Lymphocytes # 1.8 Monocytes # 1.1 H Eosinophils # 0.0 Basophils # 0.0 Nucleated Red 0.0 Blood Cells # Prothrombin 14.0 Time Prothrombin 1.1 Time Ratio INR 1.07 International Normalized Rati o Activated 36.4 H Partial Thrombo plast Time Sodium Level 135 Potassium Level 4.5 Chloride Level 96 L Carbon Dioxide 29 Level Anion Gap 10 Blood Urea 32 H Nitrogen Creatinine 1.08 Est Glomerular > 60 Filtrat Rate mL/min Glucose Level 384 H Calcium Level 8.9 Total Bilirubin 0.8 Direct 0.00 Bilirubin Indirect 0.8 Bilirubin Aspartate Amino 22 Transf (AST/SGO T) Alanine 15 Aminotransferas e (ALT/SGPT) Alkaline 64 Phosphatase Troponin I 0.033 0.028 Total Protein 7.4 Albumin 4.0 Globulin 3.40 H Albumin/Globuli 1.17 n Ratio Lipase 86 POC Venous 1.6 Lactate Urine Color YELLOW Urine Clarity SLIGHTLY CLOUDY A Urine pH 5.0 Urine Specific 1.024 [place] Urine Ketones TRACE A Urine Nitrite NEGATIVE Urine Bilirubin NEGATIVE Urine NEGATIVE Urobilinogen Urine Leukocyte NEGATIVE Esterase Urine 3 Microscopic RBC Urine 1 Microscopic WBC Urine 1+ H Hemoglobin Urine Glucose 3+ H Urine Total 3+ H Protein Lactic Acid 1.8 Level Creatine Kinase 122 Creatine Kinase 1.1 Index Creatinine 1.34 Kinase MB (Mass) Test 11/26/18 22:21 11/26/18 22:23 11/26/18 22:39 11/27/18 01:54 Bedside Glucose 407 *H 425 *H 333 H Glucose Level 419 *H Test 11/27/18 05:36 11/27/18 07:49 11/27/18 09:45 11/27/18 12:04 White Blood 13.5 #H Count Red Blood Count 3.61 L Hemoglobin 10.9 L Hematocrit 32.7 L Mean 90.6 Corpuscular Volume Mean 30.2 Corpuscular Hemoglobin Mean 33.3 Corpuscular Hemoglobin Conc ent Red Cell 12.8 Distribution Width Platelet Count 179 Mean Platelet 10.7 H Volume Immature 0.400 Granulocytes % Neutrophils % 83.7 H Lymphocytes % 10.6 L Monocytes % 5.2 Eosinophils % 0.0 Basophils % 0.1 Nucleated Red 0.0 Blood Cells % Immature 0.050 H Granulocytes # Neutrophils # 11.3 H Lymphocytes # 1.4 Monocytes # 0.7 Eosinophils # 0.0 Basophils # 0.0 Nucleated Red 0.0 Blood Cells # Sodium Level 143 Potassium Level 5.0 Chloride Level 104 Carbon Dioxide 27 Level Anion Gap 12 Blood Urea 33 H Nitrogen Creatinine 0.83 Est Glomerular > 60 Filtrat Rate mL/min Glucose Level 253 #H Hemoglobin A1c 8.8 H Calcium Level 8.6 Magnesium Level 2.0 Total Bilirubin 0.2 Direct 0.00 Bilirubin Indirect 0.2 Bilirubin Aspartate Amino 32 Transf (AST/SGO T) Alanine 18 Aminotransferas e (ALT/SGPT) Alkaline 53 Phosphatase Creatine Kinase 177 181 Creatine Kinase 3.9 3.8 Index Creatinine 6.93 H 6.79 H Kinase MB (Mass) Troponin I 2.190 *H 2.200 *H Total Protein 6.5 Albumin 3.5 Globulin 3.00 Albumin/Globuli 1.16 n Ratio Thyroid 0.214 L Stimulating Hormone (TSH) Bedside Glucose 227 H 175 Free Thyroxine 1.61 Free 2.10 L Triiodothyronin e (T3) pg/mL Test 11/27/18 14:14 Creatine Kinase 163 Creatine Kinase 3.4 Index Creatinine 5.61 H Kinase MB (Mass) Troponin I 1.770 *H Exam/Review of Systems Vital Signs Vitals Vital Signs Date Temp Pulse Resp B/P (MAP) Pulse Ox O2 O2 Flow FiO2 Time Delivery Rate 11/27/18 98.4 78 18 109/58 97 Room Air 15:03 (75) 11/27/18 2.0 08:00 11/26/18 21 16:58 Intake and Output 11/26/18 11/26/18 11/27/18 1515:00 23:00 07:00 IntakeIntake Total 50 ml BalanceBalance 50 ml Medications Medications Current Medications Alendronate Sodium (Fosamax) 70 mg Mo@0725 PO ; Start 11/30/18 at 07:25 Aspirin (Halfprin) 81 mg DAILY PO Last administered on 11/27/18at 08:39; Admin Dose 81 MG; Start 11/27/18 at 09:00 Atorvastatin Calcium (Lipitor) 20 mg QHS PO Last administered on 11/26/18at 23:18; Admin Dose 20 MG; Start 11/26/18 at 22:00 Ergocalciferol (Drisdol) 50,000 unit Q7D PO Last administered on 11/26/18at 23:11; Admin Dose 50,000 UNIT; Start 11/26/18 at 21:00 Ferrous Sulfate (Ferrous Sulfate (Ec)) 325 mg BID PO Last administered on 11/27/18at 08:39; Admin Dose 325 MG; Start 11/26/18 at 21:00 Gabapentin (Neurontin) 600 mg TID PO Last administered on 11/27/18at 12:15; Admin Dose 600 MG; Start 11/26/18 at 21:00 Insulin Glargine (Lantus) 20 units DAILY SC Last administered on 11/27/18at 08:41; Admin Dose 20 UNITS; Start 11/26/18 at 21:00 Diagnostic Test (Pha) (Accu-Chek) 1 ea 02 XX Last administered on 11/27/18at 02:17; Admin Dose 1 EA; Start 11/27/18 at 02:00 IV Flush (NS 3 ml) 3 ml PER PROTOCOL IV ; Start 12/27/18 at 21:00 Ondansetron HCl (Zofran Inj) 4 mg Q6H PRN IV NAUSEA AND/OR VOMITING; Start 11/26/18 at 21:00 Nitroglycerin (Nitroglycerin (Sl Tab) 0.4 Mg) 1 tab Q5M PRN SL CHEST PAIN; Start 11/26/18 at 21:00 Acetaminophen (Tylenol Tab) 650 mg Q6H PRN PO PAIN LEVEL 1-3 OR FEVER; Start 11/26/18 at 21:00 Docusate Sodium (Colace) 100 mg Q12H PRN PO CONSTIPATION; Start 11/26/18 at 21:00 Bisacodyl (Dulcolax) 5 mg DAILY PRN PO CONSTIPATION; Start 11/26/18 at 21:00 Levalbuterol (Xopenex Neb) 1.25 mg Q4H RESP THERAPY PRN HHN WHEEZING AND SOB; Start 11/26/18 at 21:00 Miscellaneous Information 1 ea NOTE XX ; Start 11/26/18 at 22:00 Glucose (Glutose) 15 gm Q15M PRN PO DECREASED GLUCOSE; Start 11/26/18 at 22:00 Glucose (Glutose) 22.5 gm Q15M PRN PO DECREASED GLUCOSE; Start 11/26/18 at 22:00 Dextrose (D50w Syringe) 25 ml Q15M PRN IV DECREASED GLUCOSE; Start 11/26/18 at 22:00 Dextrose (D50w Syringe) 50 ml Q15M PRN IV DECREASED GLUCOSE; Start 11/26/18 at 22:00 Glucagon (Glucagen) 1 mg Q15M PRN IM DECREASED GLUCOSE; Start 11/26/18 at 22:00 Glucose (Glutose) 15 gm Q15M PRN BUCCAL DECREASED GLUCOSE; Start 11/26/18 at 22:00 Piperacillin Sod/ Tazobactam Sod 100 ml @ 200 mls/hr Q6 IVPB Last administered on 11/27/18at 11:33; Admin Dose 200 MLS/HR; Start 11/27/18 at 06:00 Insulin Aspart (Novolog Insulin Pen) NOVOLOG *MODERATE* ALGORITHM WITH MEALS BEDTIME SC Last administered on 11/27/18at 12:20; Admin Dose 2 UNIT; Start 11/27/18 at 07:55 Amlodipine Besylate (Norvasc) 10 mg DAILY PO Last administered on 11/27/18at 08:39; Admin Dose 10 MG; Start 11/27/18 at 09:00 Pentoxifylline (Trental) 400 mg WITH MEALS PO Last administered on 11/27/18at 11:33; Admin Dose 400 MG; Start 11/27/18 at 07:55 Enoxaparin Sodium (Lovenox) 65 mg Q12 SC Last administered on 11/27/18at 08:43; Admin Dose 65 MG; Start 11/27/18 at 09:00 Metoprolol Succinate (Toprol Xl) 25 mg DAILY PO ; Start 11/28/18 at 09:00 Vancomycin HCl (Vanco Iv Per Pharmacy) VANCOMYCIN PER PHARMACY PER PROTOCOL XX ; Start 11/27/18 at 09:30 Vancomycin HCl 1.25 gm/Sodium Chloride 250 ml @ 83.333 mls/ hr ONCE IVPB Last administered on 11/27/18at 11:33; Admin Dose 83.333 MLS/HR; Start 11/27/18 at 11:00; Stop 11/27/18 at 20:00 Vancomycin HCl 250 ml @ 125 mls/hr Q12H IVPB ; Start 11/28/18 at 00:00 GILDARDO QUINTEROS NP Nov 27, 2018 15:26
--- NOTE | 2018-11-27 16:27 | RADRPT ---
Echocardiogram Report Patient Name: MAYUR REBOLLEDO Gender: Male Date: 1950 Study Date: 27-Nov-2018 Manager Money: Fannie Govea [employer]UST Location: [id number] Ref. Physician: PRINCE MCLEAN Quality: Adequate Procedures: Transthoracic echocardiogram with complete 2D, M-Mode, and doppler examination. Indications: Chest Pain. 2D/M Mode Doppler Measurement Value Normal Ranges Measurement Value Normal Ranges LVIDd 2D 5.3 3.5 - 5.6 cm AV Peak Bill 1.3 m/sec LVIDs 2D 4.4 2.1 - 4.1 cm AV Peak PG 7.0 mmHg LVPWd 2D 1.2 0.6 - 1.1 cm LVOT Peak Bill 0.9 m/sec IVSd 2D 1.0 0.6 - 1.1 cm LVOT Peak PG 3.0 mmHg AoR Diam 2D 3.0 2.0 - 3.7 cm MV E Peak Bill 0.6 m/sec LA/Ao 2D 1 0 - 1 MV A Peak Bill 0.8 m/sec LA Dimen 2D 3.7 2.3 - 4.0 cm MV E/A 0.8 MV Decel Time 165 msec Lat E` Bill 0.1 m/sec Lateral E/E` 9.1 MV E/A 0.8 TR Peak Bill 1.6 m/sec TR Peak PG 10.0 mmHg RVSP 25.0 mmHg RA Pressure 15.0 Findings Left Ventricle: Normal left ventricular systolic function. Normal left ventricular cavity size. Mild concentric left ventricular hypertrophy. Moderate left ventricular systolic dysfunction. Ejection fraction is visually estimated at 3540 %. Tissue Doppler/Mitral Doppler indices are consistent with impaired relaxation (Stage I diastolic dysfunction). These segments of the LV are hypokinetic apex. Right Ventricle: Normal right ventricular size. Normal right ventricular systolic function. Left Atrium: The left atrium is normal in size. Right Atrium: The right atrium is normal in size. Mitral Valve: Mitral valve leaflets appear mildly thickened. Mild mitral annular calcification. There is trace to mild mitral valve regurgitation. Aortic Valve: No significant aortic stenosis or insufficiency. Aortic cusps appear mildly calcified. Tricuspid Valve: Normal appearance of the tricuspid valve. Estimated peak PA systolic pressure 25 mmHg. There is trace tricuspid regurgitation. Pulmonic Valve: Normal pulmonic valve appearance. Pericardium: Normal pericardium with no significant pericardial effusion. Aorta: Normal aortic root. IVC: Dilated IVC without respiratory collapse consistent with elevated right atrial pressure. Conclusions Normal left ventricular systolic function. Normal left ventricular cavity size. Mild concentric left ventricular hypertrophy. Moderate left ventricular systolic dysfunction. Ejection fraction is visually estimated at 35-40 %. Tissue Doppler/Mitral Doppler indices are consistent with impaired relaxation (Stage I diastolic dysfunction). These segments of the LV are hypokinetic apex. Mitral valve leaflets appear mildly thickened. Mild mitral annular calcification. There is trace to mild mitral valve regurgitation. Normal appearance of the tricuspid valve. Estimated peak PA systolic pressure 25 mmHg. There is trace tricuspid regurgitation. Electronically Signed By: Dao Herbert 27-Nov-2018 16:27:18 -0800 Patient Name: MAYUR REBOLLEDO Study Date: 27-Nov-[id number]
--- NOTE | 2018-11-27 18:41 | CONS ---
DATE OF ADMISSION: 11/26/2018 DATE OF CONSULTATION: 11/27/2018 TYPE OF CONSULTATION: Cardiology. REASON FOR CONSULTATION: Positive troponin consistent with non-ST elevation myocardial infarction. REQUESTING PHYSICIAN: Inderjit Mclean MD, from the hospitalist service. HISTORY OF PRESENT ILLNESS: Mr. Hernandez is a 67-year-old male with a history of diabetes mellit us, dyslipidemia, hypertension, coronary artery disease, peripheral arterial disease, who presented w ith a couple weeks of cough, shortness of breath, purulent secretions and chest pain with cough. Catr[place] long upon arrival, temperature was 99.3, blood pressure 135/90, pulse 97, respiratory rate 19, satt ing 98%. The patient's labs, white blood cell count of 11.2, hemoglobin 11.7, platelet count of 190, sodium 135, potassium 4.5, creatinine 1.0, BUN 32, AST 22, ALT 15, INR 1.0. UA negative. The patie nt underwent a chest x-ray revealing low lung volumes with linear bibasilar atelectasis. The patient 's electrocardiogram revealed normal sinus rhythm, rate 88, normal axis, normal intervals, with later al T-wave inversions. The patient was subsequently admitted to the floor and since admit to floor brennan s been initiated on beta ayden, broad spectrum antibiotics, aspirin and placed on Lovenox. The pat ient has had troponins trended going from after 2 negative to positive at 2.1. The patient's TSH has been suppressed at 0.214 with normal free T4. At this time, the patient continues to complain of sh ortness breath, chest pain with cough. PAST MEDICAL HISTORY: As above in HPI. MEDICATIONS CURRENTLY IN HOSPITAL: 1. Fosamax 70 mg q.week. 2. Toprol-XL 25 mg daily. 3. Vancomycin q.12. 4. Aspirin 81 mg daily. 5. Norvasc 10 mg daily. 6. Lovenox 65 mg subQ q.12. 7. Insulin sliding scale. 8. Trental 400 mg with meals. 9. Zosyn IV q.6. 10. Lipitor 20 mg at bedtime. 11. Vitamin D. 12. Gabapentin. 13. Lantus. 14. Zofran. 15. Tylenol. 16. Dulcolax. 17. Xopenex p.r.n. ALLERGIES: NO KNOWN DRUG ALLERGIES. SOCIAL HISTORY: No current tobacco, EtOH or illicit drug use. FAMILY HISTORY: No history of sudden cardiac or early CAD. REVIEW OF SYSTEMS: As above in HPI. CONSTITUTIONAL: Positive subjective fevers. PULMONARY: Chest pain. CARDIOVASCULAR: Positive troponin. GASTROINTESTINAL: No vomiting. GENITOURINARY: No hematuria. MUSCULOSKELETAL: Generalized myalgias, PULMONARY: Cough, shortness of breath. ENDOCRINE: Positive diabetes mellitus. PHYSICAL EXAMINATION: VITAL SIGNS: Temperature of 98, blood pressure 120/70, pulse 71, respiratory rate 16, satting 98%. GENERAL: The patient is alert, awake with cough, shortness of breath. NECK: JVP approximately is 9 cm of water. CHEST: Upper airway transmitted rhonchorous sounds. HEART: Regular rate and rhythm. Normal S1, increased S2, I/ systolic murmur, nondisplaced PMI. ABDOMEN: Positive bowel sounds, soft. EXTREMITIES: No significant pitting edema, 1+ pulses bilaterally posterior tibial. LABORATORIES: As above in HPI with most recently from today, glucose now 253 at 4:19, sodium 143, po tassium 5.0, creatinine 0.8, BUN 33. Troponin 2.1. TSH of 0.214 with normal free T4. White blood c ell count 13.5, hemoglobin 10.9, platelet count 179. IMAGING STUDIES: Chest x-ray from today revealing bilateral bibasilar space opacities may be atelect asis, pneumonia. ELECTROCARDIOGRAM: Most recent from today reveals normal sinus rhythm, rate 79, normal axis, normal intervals, with anterolateral T-wave inversions, no significant change from prior. IMPRESSION: 1. Non-ST elevation myocardial infarction in the setting of upper respiratory infection, likely type 2 demand infarct with known coronary artery disease. 2. Chest pain could be due to patient's [id number] myocardial infarction which he had, but als o in the setting of cough. 3. Abnormal electrocardiogram with lateral T-wave inversions. 4. Hypertension. 5. Dyslipidemia. 6. Upper respiratory infection. Negative flu swabs. 7. Diabetes mellitus with uncontrolled blood sugars. 8. Anemia. 9. Leukocytosis. RECOMMENDATIONS: 1. At this time, we would maintain the patient on telemetry monitoring to follow rhythm and rate simeon sely. 2. We would continue the patient's aspirin and Lovenox for treatment of non-ST myocardial infarction at this time and continue the patient's Toprol, following blood pressure and heart rate closely. 3. We would continue the patient's broad-spectrum antibiotics following up all culture data. 4. Continue the patient's statin therapy and adjust it according to a fasting lipid panel to be chec ked. 5. We will check a 2D echo to further assess the patient's ejection fraction, wall motion, rule out any major abnormalities. 6. Continue the patient's Trental in treatment of peripheral arterial disease. 7. Continue bronchodilators as necessary, following respiratory status closely. Thank you for allowing me to take part in the care of this patient. I will continue to follow along him very closely with you with further recommendations to be made as the patient progresses through h is inpatient hospital clinical course. Dictated By: LAZARO IBARRA/BUCK Conf#: [id number] DID#: [id number] CC: LAZARO PANG MD; INDERJIT MCLEAN MD;*End*
--- NOTE | 2018-11-27 18:42 | NUR ---
END OF SHIFT REPORT: Patient has no new complaints. Denies chest pain or SOB all day. VSS. Coughing intermittently but unable to give sputum sample. Also had 2 loose stools today according to patient. Both specimen are pending collection. Patient aware. Will endorse to PM shift for follow up.
[2018-11-27] MEDS: ATORVASTATIN 20 MG TAB PO SCH (20:43)
[2018-11-27] MEDS: VANCOMYCIN 1 GM 250 ML IVPB SCH (23:52)
[2018-11-28] VITALS (10 sets, daily range): BP systolic 121–182; BP diastolic 63–90; PULSE 68–77; RESP 18–20
[2018-11-28] MEDS: ACCU-CHEK XX SCH (02:00)
[2018-11-28] MEDS ORDERED: ACCU-CHEK XX SCH (02:00)
[2018-11-28] MEDS: PIPER-TAZO 3.375 GM IV (PMX) 100 ML IVPB SCH ×2 (05:47→12:23)
--- NOTE | 2018-11-28 06:38 | NUR ---
Pt troponin result come in last night at 2100h trending down from 1.77 to 1.23 , Dr Wilson was notified and aware , no new order given.
--- NOTE | 2018-11-28 06:45 | NUR ---
Pt AOX4 ambulatory with assist, uses wheel walker to toilet, C/O of diarhea x4 time watery brown stool , collected send to lab for C-dif result pending, Pt on isolation - core contact, On Zosyn & vanco IV tolerating well. Will give report to AM shift
[2018-11-28] MEDS: INSULIN ASPART [NOVOLOG] 3 ML PEN SC SCH ×4 (07:55→20:57)
[2018-11-28] MEDS: GABAPENTIN 300 MG CAP PO SCH ×3 (08:46→20:57)
[2018-11-28] MEDS: ASPIRIN (EC) 81 MG TAB PO SCH (08:47)
[2018-11-28] MEDS: METOPROLOL (XL) 25 MG TAB PO SCH (08:47)
[2018-11-28] MEDS: FERROUS SULFATE (EC) 325 MG TAB PO SCH ×2 (08:47→20:57)
[2018-11-28] MEDS: AMLODIPINE 10 MG TAB PO SCH (08:47)
[2018-11-28] MEDS: ENOXAPARIN 80 MG/0.8 ML SYG SC SCH ×2 (08:51→21:01)
[2018-11-28] MEDS: PENTOXIFYLLINE (SR) 400 MG TAB PO SCH ×3 (08:54→18:39)
[2018-11-28] MEDS: INSULIN GLARGINE [LANTus] (100 UNITS/ML) SYG SC SCH (09:03)
[2018-11-28] MEDS ORDERED: hydrALAzine 20 MG INJ IV PRN (12:00)
[2018-11-28] MEDS: VANCOMYCIN 1 GM 250 ML IVPB SCH (12:23)
--- NOTE | 2018-11-28 12:30 | PN ---
Date/Time of Note Date/Time of Note DATE: 11/28/18 TIME: 12:28 Assessment/Plan VTE Prophylaxis Risk score (from Ns)>0 risk: 0 SCD applied (from [facility]): No SCD contraindicated: other Pharmacological prophylaxis: LMWH Lines/Catheters IV C[facility]ter Type (from [facility] Saline Lock Assessment/Plan Hospital Course SUBJECTIVE: Denies any chest pain. Complains of frequent diarrhea and abdominal pain. OBJECTIVE: Physical Exam General: Adequately build 67 year-old male lying in bed in no apparent distress. HEENT: Normocephalic, atraumatic. Eyes: Anicteric sclerae, conjunctivae clear. ENT: Nasal septum midline, oral mucosa moist. Neck supple, no JVD noticed. Respiratory: Bilaterally diminished breath sounds. No use of accessory muscles of respiration. No adventitious breath sounds. Cardiovascular: S1, S2 heard. Regular rate and rhythm. Abdomen: Soft, nontender, and nondistended. Bowel sounds positive in all 4 quadrants. Genitourinary: Deferred. Extremities: No cyanosis, no clubbing, no edema. Peripheral pulses palpable. Neurologic: Cranial nerves II through XII grossly intact. The patient is awake, alert, and oriented. Skin: Normal skin turgor. No skin rashes. Labs & Vitals per chart ASSESSMENT & PLAN This is a 67-year-old male with comorbidities including hypertension, diabetes mellitus type 2, iron deficiency anemia, coronary artery disease status post coronary artery stenting, dyslipidemia, and peripheral artery disease. The patient came to the emergency room with chief complaint of productive cough with chills and a thick purulent mucus production and sore throat. The patient also verbalized abdominal pain and diarrhea. The patient also was complaining of chest pain times 1 day. In the emergency room, the patient's chest x-ray was showing low lung volumes and bibasilar linear atelectasis. The patient had a minimal leukocytosis. The patient remained afebrile. The patient was admitted to inpatient setting for further treatment and evaluation. 1. Systemic inflammatory response syndrome with leukocytosis and tachycardia. -Pancultures negative so far. -De-escalate antimicrobials. 2. Suspect upper respiratory infection. -Continue antimicrobials. -Rapid strep negative. 3. NSTEMI. -Continue therapeutic dose of Lovenox. -Continue antiplatelet therapy. -Cardiology following. 4. Ischemic cardiomyopathy. -Ejection fraction 35-40%. -Continue BBs. -Initiation of ACEI/ARB will be deferred to cardiology. 5. Diabetes mellitus type 2. -Continue sliding scale insulin along with basal insulin. -Hemoglobin A1c 8.8. 6. Dyslipidemia. -Continue statins. 7. Essential hypertension. -Continue antihypertensives. 8. Chronic iron deficiency anemia. -Continue iron supplements. 9. Peripheral artery disease. -Continue pentoxifylline. 10. Abdominal pain with diarrhea. -Etiology unclear. -Stool for C. difficile negative. -Send stool for ova and parasites and cardiac -Obtain CT scan of the abdomen and pelvis. 11. Fluids, electrolytes, and nutrition. -Carbohydrate controlled diet. 12. DVT prophylaxis. -On therapeutic Lovenox. 13. Plan. -Continue therapeutic Lovenox. -Continue statins and aspirin. -Await further cardiology recommendations. -De-escalate antimicrobials. -Add Florastor. -Obtain abdominal imaging. The patient was seen in collaboration with Dr. Taylor. Result Diagram: 11/28/18 0546 11/28/18 0546 Results 24hrs Laboratory Tests Test 11/27/18 14:14 11/27/18 17:21 11/27/18 20:31 11/27/18 20:48 Creatine Kinase 163 142 Creatine Kinase 3.4 3.1 Index Creatinine 5.61 H 4.34 H Kinase MB (Mass) Troponin I 1.770 *H 1.230 *H Bedside Glucose 248 H 138 Test 11/28/18 05:46 11/28/18 08:43 11/28/18 11:54 White Blood 11.4 H Count Red Blood Count 3.55 L Hemoglobin 10.9 L Hematocrit 33.1 L Mean Corpuscular 93.2 Volume Mean Corpuscular 30.7 Hemoglobin Mean Corpuscular 32.9 Hemoglobin Yessi nt Red Cell 12.9 Distribution Width Platelet Count 184 Mean Platelet 10.4 Volume Immature 0.300 Granulocytes % Neutrophils % 74.1 Lymphocytes % 19.1 Monocytes % 6.1 Eosinophils % 0.1 Basophils % 0.3 Nucleated Red 0.0 Blood Cells % Immature 0.040 H Granulocytes # Neutrophils # 8.5 H Lymphocytes # 2.2 Monocytes # 0.7 Eosinophils # 0.0 Basophils # 0.0 Nucleated Red 0.0 Blood Cells # Sodium Level 146 H Potassium Level 4.2 Chloride Level 109 Carbon Dioxide 29 Level Anion Gap 8 Blood Urea 28 H Nitrogen Creatinine 0.96 Est Glomerular > 60 Filtrat Rate mL/min Glucose Level 81 # Calcium Level 8.9 Phosphorus Level 2.9 Magnesium Level 2.0 Total Bilirubin 0.2 Direct Bilirubin 0.00 Indirect 0.2 Bilirubin Aspartate Amino 29 Transf (AST/SGOT ) Alanine 20 Aminotransferase (ALT/SGPT) Alkaline 49 Phosphatase Total Protein 5.9 L Albumin 3.1 L Globulin 2.80 Albumin/Globulin 1.10 Ratio Triglycerides 90 Level Cholesterol 137 Level LDL Cholesterol, 72 Calculated HDL Cholesterol 47 Cholesterol/HDL 2.9 Ratio Bedside Glucose 79 77 Exam/Review of Systems Vital Signs Vitals Vital Signs Date Temp Pulse Resp B/P (MAP) Pulse Ox O2 O2 Flow FiO2 Time Delivery Rate 11/28/18 77 12:02 11/28/18 97.7 18 182/90 100 Nasal 11:00 (120) Cannula 11/28/18 2.0 07:30 11/26/18 21 16:58 Intake and Output 11/27/18 11/27/18 11/28/18 1515:00 23:00 07:00 IntakeIntake Total 300 ml 780 ml BalanceBalance 300 ml 780 ml Medications Medications Current Medications Alendronate Sodium (Fosamax) 70 mg Mo@0725 PO ; Start 11/30/18 at 07:25 Aspirin (Halfprin) 81 mg DAILY PO Last administered on 11/28/18at 08:47; Admin Dose 81 MG; Start 11/27/18 at 09:00 Atorvastatin Calcium (Lipitor) 20 mg QHS PO Last administered on 11/27/18at 20:43; Admin Dose 20 MG; Start 11/26/18 at 22:00 Ergocalciferol (Drisdol) 50,000 unit Q7D PO Last administered on 11/26/18at 23:11; Admin Dose 50,000 UNIT; Start 11/26/18 at 21:00 Ferrous Sulfate (Ferrous Sulfate (Ec)) 325 mg BID PO Last administered on 11/28/18 08:47; Admin Dose 325 MG; Start 11/26/18 at 21:00 Gabapentin (Neurontin) 600 mg TID PO Last administered on 11/28/18 08:46; Admin Dose 600 MG; Start 11/26/18 at 21:00 Insulin Glargine (Lantus) 20 units DAILY SC Last administered on 12/29/18at 09:03; Admin Dose 20 UNITS; Start 11/26/18 at 21:00 Diagnostic Test (Pha) (Accu-Chek) 1 ea 02 XX Last administered on 11/27/18at 02:17; Admin Dose 1 EA; Start 11/27/18 at 02:00 IV Flush (NS 3 ml) 3 ml PER PROTOCOL IV ; Start 11/26/18 at 21:00 Ondansetron HCl (Zofran Inj) 4 mg Q6H PRN IV NAUSEA AND/OR VOMITING; Start 11/26/18 at 21:00 Nitroglycerin (Nitroglycerin (Sl Tab) 0.4 Mg) 1 tab Q5M PRN SL CHEST PAIN; Start 11/26/18 at 21:00 Acetaminophen (Tylenol Tab) 650 mg Q6H PRN PO PAIN LEVEL 1-3 OR FEVER; Start 11/26/18 at 21:00 Docusate Sodium (Colace) 100 mg Q12H PRN PO CONSTIPATION; Start 11/26/18 at 21:00 Bisacodyl (Dulcolax) 5 mg DAILY PRN PO CONSTIPATION; Start 11/26/18 at 21:00 Levalbuterol (Xopenex Neb) 1.25 mg Q4H RESP THERAPY PRN HHN WHEEZING AND SOB; Start 11/26/18 at 21:00 Miscellaneous Information 1 ea NOTE XX ; Start 11/26/18 at 22:00 Glucose (Glutose) 15 gm Q15M PRN PO DECREASED GLUCOSE; Start 11/26/18 at 22:00 Glucose (Glutose) 22.5 gm Q15M PRN PO DECREASED GLUCOSE; Start 11/26/18 at 22:00 Dextrose (D50w Syringe) 25 ml Q15M PRN IV DECREASED GLUCOSE; Start 11/26/18 at 22:00 Dextrose (D50w Syringe) 50 ml Q15M PRN IV DECREASED GLUCOSE; Start 11/26/18 at 22:00 Glucagon (Glucagen) 1 mg Q15M PRN IM DECREASED GLUCOSE; Start 11/26/18 at 22:00 Glucose (Glutose) 15 gm Q15M PRN BUCCAL DECREASED GLUCOSE; Start 11/26/18 at 22:00 Piperacillin Sod/ Tazobactam Sod 100 ml @ 200 mls/hr Q6 IVPB Last administered on 11/28/18at 05:47; Admin Dose 200 MLS/HR; Start 11/27/18 at 06:00 Insulin Aspart (Novolog Insulin Pen) NOVOLOG *MODERATE* ALGORITHM WITH MEALS BEDTIME SC Last administered on 11/27/18at 17:24; Admin Dose 6 UNIT; Start 11/27/18 at 07:55 Amlodipine Besylate (Norvasc) 10 mg DAILY PO Last administered on 11/28/18at 08:47; Admin Dose 10 MG; Start 11/27/18 at 09:00 Pentoxifylline (Trental) 400 mg WITH MEALS PO Last administered on 11/28/18 08:54; Admin Dose 400 MG; Start 11/27/18 at 07:55 Enoxaparin Sodium (Lovenox) 65 mg Q12 SC Last administered on 11/28/18at 08:51; Admin Dose 65 MG; Start 11/27/18 at 09:00 Metoprolol Succinate (Toprol Xl) 25 mg DAILY PO Last administered on 11/28/18at 08:47; Admin Dose 25 MG; Start 11/28/18 at 09:00 Vancomycin HCl (Vanco Iv Per Pharmacy) VANCOMYCIN PER PHARMACY PER PROTOCOL XX ; Start 11/27/18 at 09:30 Vancomycin HCl 250 ml @ 125 mls/hr Q12H IVPB Last administered on 11/27/18at 23:52; Admin Dose 125 MLS/HR; Start 11/28/18 at 00:00 Hydralazine HCl (Apresoline) 10 mg Q6H PRN IV SBP>160; Start 11/28/18 at 12:00 GILDARDO QUINTEROS NP Nov 28, 2018 12:30
[2018-11-28] MEDS: LEVOFLOXACIN 500MG/D5W (PMX) 100 ML IVPB SCH (15:48)
[2018-11-28] MEDS ORDERED: SOD CHLORIDE 0.9% 100 ML ONE (15:52)
[2018-11-28] MEDS ORDERED: IOHEXOL 300MG/ML 150 ML BTL ONE (15:52)
--- NOTE | 2018-11-28 15:59 | CONS ---
Date/Time of Note Date/Time of Note DATE: 11/28/18 TIME: 15:54 Assessment/Plan Assessment/Plan Hospital Course IMPRESSION: 1. Non-ST elevation myocardial infarction in the setting of upper respiratory infection, likely type 2 demand infarct with known coronary artery disease.- downtrending cardiac enzymes 2. Chest pain could be due to patient's [id number]-[id number] myocardial infarction which he had, but also in the setting of cough. 3. Abnormal electrocardiogram with lateral T-wave inversions. 4. Hypertension. 5. Dyslipidemia.-LDL 72 HDL 47 6. Upper respiratory infection. Negative flu swabs. 7. Diabetes mellitus with uncontrolled blood sugars. 8. Anemia. 9. Leukocytosis. 10. cardiomyopathy-LVEF 35-40 by echo this admit Recc: -Tele -trend cardiac enzymes -Continue BB/CCB -continue asa and consider addition of plavix to maximize medical therapy -Continue statin -Follow volume status closely given low EF -Continue abx's and f/u cx data -Continue current lovenox for now Result Diagram: 11/28/18 0546 11/28/18 0546 Results 24hrs Laboratory Tests Test 11/27/18 17:21 11/27/18 20:31 11/27/18 20:48 11/28/18 05:43 Bedside Glucose 248 H 138 Creatine Kinase 142 Creatine Kinase 3.1 Index Creatinine 4.34 H Kinase MB (Mass) Troponin I 1.230 *H Iron Level 73 Total Iron 196 L Binding Capacity Percent Iron 37 Saturation Test 11/28/18 05:46 11/28/18 08:43 11/28/18 11:54 11/28/18 13:31 White Blood 11.4 H Count Red Blood Count 3.55 L Hemoglobin 10.9 L Hematocrit 33.1 L Mean Corpuscular 93.2 Volume Mean Corpuscular 30.7 Hemoglobin Mean Corpuscular 32.9 Hemoglobin Yessi nt Red Cell 12.9 Distribution Width Platelet Count 184 Mean Platelet 10.4 Volume Immature 0.300 Granulocytes % Neutrophils % 74.1 Lymphocytes % 19.1 Monocytes % 6.1 Eosinophils % 0.1 Basophils % 0.3 Nucleated Red 0.0 Blood Cells % Immature 0.040 H Granulocytes # Neutrophils # 8.5 H Lymphocytes # 2.2 Monocytes # 0.7 Eosinophils # 0.0 Basophils # 0.0 Nucleated Red 0.0 Blood Cells # Sodium Level 146 H Potassium Level 4.2 Chloride Level 109 Carbon Dioxide 29 Level Anion Gap 8 Blood Urea 28 H Nitrogen Creatinine 0.96 Est Glomerular > 60 Filtrat Rate mL/min Glucose Level 81 # Calcium Level 8.9 Phosphorus Level 2.9 Magnesium Level 2.0 Total Bilirubin 0.2 Direct Bilirubin 0.00 Indirect 0.2 Bilirubin Aspartate Amino 29 Transf (AST/SGOT ) Alanine 20 Aminotransferase (ALT/SGPT) Alkaline 49 Phosphatase Total Protein 5.9 L Albumin 3.1 L Globulin 2.80 Albumin/Globulin 1.10 Ratio Triglycerides 90 Level Cholesterol 137 Level LDL Cholesterol, 72 Calculated HDL Cholesterol 47 Cholesterol/HDL 2.9 Ratio Bedside Glucose 79 77 Ferritin 292.0 H Troponin I 0.588 *H B-Type 1310 H Natriuretic Peptide Consultation Date/Type/Reason Admit Date/Time Nov 26, 2018 at 18:46 Initial Consult Date 11/27/18 Type of Consult cardiology Reason for Consultation Nstemi Requesting Provider: GILDARDO QUINTEROS [employer] Exam/Review of Systems Vital Signs Vitals Vital Signs Date Temp Pulse Resp B/P (MAP) Pulse Ox O2 O2 Flow FiO2 Time Delivery Rate 11/28/18 98.0 75 18 130/68 96 Nasal 15:05 (88) Cannula 11/28/18 2.0 07:30 11/26/18 21 16:58 Intake and Output 11/27/18 11/27/18 11/28/18 1515:00 23:00 07:00 IntakeIntake Total 300 ml 780 ml BalanceBalance 300 ml 780 ml Exam Review of Systems: CONSTITUTIONAL: No fevers, chills. PULMONARY: cough/sob CARDIOVASCULAR: No chest pain/palpitations GASTROINTESTINAL: No nausea/vomiting. GENITOURINARY: No hematuria/dysuria. MUSCULOSKELETAL: No myagias/arthalgias. PSYCHIATRIC: The patient denies depression. NEUROLOGIC: No weakness Constitutional: other (sleeping) Psych: no complaints Head: normocephalic ENMT: mucosa pink and moist Neck: supple, jvd (8 cm water) Respiratory: other (diffuse rhoncherous sounds) Cardiovascular: regular rate and rhythm Gastrointestinal: soft, non-tender Musculoskeletal: muscle tone (normal) Extremities: edema (none) Neurological: other (No focal deficits) Medications Medications Current Medications Alendronate Sodium (Fosamax) 70 mg Mo@0725 PO ; Start 11/30/18 at 07:25 Aspirin (Halfprin) 81 mg DAILY PO Last administered on 11/28/18 08:47; Admin Dose 81 MG; Start 11/27/18 at 09:00 Atorvastatin Calcium (Lipitor) 20 mg QHS PO Last administered on 11/27/18at 20:43; Admin Dose 20 MG; Start 11/26/18 at 22:00 Ergocalciferol (Drisdol) 50,000 unit Q7D PO Last administered on 11/26/18at 23:11; Admin Dose 50,000 UNIT; Start 11/26/18 at 21:00 Ferrous Sulfate (Ferrous Sulfate (Ec)) 325 mg BID PO Last administered on 11/01 08:47; Admin Dose 325 MG; Start 11/26/18 at 21:00 Gabapentin (Neurontin) 600 mg TID PO Last administered on 11/28/18 12:23; Admin Dose 600 MG; Start 11/26/18 at 21:00 Insulin Glargine (Lantus) 20 units DAILY SC Last administered on 11/28/18 09:03; Admin Dose 20 UNITS; Start 11/26/18 at 21:00 Diagnostic Test (Pha) (Accu-Chek) 1 ea 02 XX Last administered on 11/27/18at 02:17; Admin Dose 1 EA; Start 11/27/18 at 02:00 IV Flush (NS 3 ml) 3 ml PER PROTOCOL IV ; Start 11/26/18 at 21:00 Ondansetron HCl (Zofran Inj) 4 mg Q6H PRN IV NAUSEA AND/OR VOMITING; Start 11/26/18 at 21:00 Nitroglycerin (Nitroglycerin (Sl Tab) 0.4 Mg) 1 tab Q5M PRN SL CHEST PAIN; Start 11/26/18 at 21:00 Acetaminophen (Tylenol Tab) 650 mg Q6H PRN PO PAIN LEVEL 1-3 OR FEVER; Start 11/26/18 at 21:00 Docusate Sodium (Colace) 100 mg Q12H PRN PO CONSTIPATION; Start 11/26/18 at 21:00 Bisacodyl (Dulcolax) 5 mg DAILY PRN PO CONSTIPATION; Start 11/26/18 at 21:00 Levalbuterol (Xopenex Neb) 1.25 mg Q4H RESP THERAPY PRN HHN WHEEZING AND SOB; Start 11/26/18 at 21:00 Miscellaneous Information 1 ea NOTE XX ; Start 11/26/18 at 22:00 Glucose (Glutose) 15 gm Q15M PRN PO DECREASED GLUCOSE; Start 11/26/18 at 22:00 Glucose (Glutose) 22.5 gm Q15M PRN PO DECREASED GLUCOSE; Start 11/26/18 at 22:00 Dextrose (D50w Syringe) 25 ml Q15M PRN IV DECREASED GLUCOSE; Start 11/26/18 at 22:00 Dextrose (D50w Syringe) 50 ml Q15M PRN IV DECREASED GLUCOSE; Start 11/26/18 at 22:00 Glucagon (Glucagen) 1 mg Q15M PRN IM DECREASED GLUCOSE; Start 11/26/18 at 22:00 Glucose (Glutose) 15 gm Q15M PRN BUCCAL DECREASED GLUCOSE; Start 11/26/18 at 22:00 Insulin Aspart (Novolog Insulin Pen) NOVOLOG *MODERATE* ALGORITHM WITH MEALS BEDTIME SC Last administered on 11/27/18at 17:24; Admin Dose 6 UNIT; Start 11/27/18 at 07:55 Amlodipine Besylate (Norvasc) 10 mg DAILY PO Last administered on 11/28/18at 08:47; Admin Dose 10 MG; Start 11/27/18 at 09:00 Pentoxifylline (Trental) 400 mg WITH MEALS PO Last administered on 11/28/18at 12:23; Admin Dose 400 MG; Start 11/27/18 at 07:55 Enoxaparin Sodium (Lovenox) 65 mg Q12 SC Last administered on 11/28/18at 08:51; Admin Dose 65 MG; Start 11/27/18 at 09:00 Metoprolol Succinate (Toprol Xl) 25 mg DAILY PO Last administered on 11/28/18at 08:47; Admin Dose 25 MG; Start 11/28/18 at 09:00 Hydralazine HCl (Apresoline) 10 mg Q6H PRN IV SBP>160 Last administered on at 12:23; Admin Dose 10 MG; Start 11/28/18 at 12:00 Saccharomyces Boulardii (Florastor) 250 mg BID PO ; Start 11/28/18 at 21:00 Levofloxacin/ Dextrose 100 ml @ 100 mls/hr Q24H IVPB Last administered on 11/28/18at 15:48; Admin Dose 100 MLS/HR; Start 11/28/18 at 13:00 LAZARO HECTOR Nov 28, 2018 15:59
--- NOTE | 2018-11-28 18:59 | NUR ---
Patient remain stable. Had CT of abdomen to check for Colitis. Patient had 7 BM during the shift but Negative for Cdiff. Need stool sample fof further testing. Will endorse to the slot shift manager.
[2018-11-28] MEDS: ATORVASTATIN 20 MG TAB PO SCH (20:57)
[2018-11-28] MEDS: SACCHAROMYCES BOULARDII 250 MG CAP PO SCH (21:00)
[2018-11-29] VITALS (12 sets, daily range): BP systolic 97–173; BP diastolic 52–84; PULSE 66–79; RESP 18–20
[2018-11-29] MEDS: ACCU-CHEK XX SCH (02:00)
--- NOTE | 2018-11-29 06:36 | NUR ---
End of shift notes: Vital signs remains stable. Denies any pain or any discomfort. Encouraged self repositioning. Needs attended. Will continue to monitor, orders reviewed and acknowledged. Endorsed to day shift.
[2018-11-29] MEDS: INSULIN ASPART [NOVOLOG] 3 ML PEN SC SCH ×4 (07:55→21:00)
--- NOTE | 2018-11-29 08:40 | RADRPT ---
Vent Rate: 77 bpm RR Interval: 0 msec WI Interval: 146 msec QRS Duration: 100 msec QT Interval: 388 msec QTC Interval: 439 msec P-R-T Ward: 40 - 20 - 166 degrees Normal sinus rhythm Left ventricular hypertrophy with repolarization abnormality Cannot rule out Septal infarct , age undetermined Abnormal ECG Electronically Signed By: Tomy Carey [id number]
[2018-11-29] MEDS: PENTOXIFYLLINE (SR) 400 MG TAB PO SCH ×3 (09:29→17:49)
[2018-11-29] MEDS: ASPIRIN (EC) 81 MG TAB PO SCH (09:29)
[2018-11-29] MEDS: SACCHAROMYCES BOULARDII 250 MG CAP PO SCH ×2 (09:29→21:36)
[2018-11-29] MEDS: METOPROLOL (XL) 25 MG TAB PO SCH (09:30)
[2018-11-29] MEDS: BENAZEPRIL 10 MG TAB PO SCH (09:30)
[2018-11-29] MEDS: FERROUS SULFATE (EC) 325 MG TAB PO SCH ×2 (09:30→21:36)
[2018-11-29] MEDS: AMLODIPINE 10 MG TAB PO SCH (09:30)
[2018-11-29] MEDS: GABAPENTIN 300 MG CAP PO SCH ×3 (09:30→21:36)
[2018-11-29] MEDS: INSULIN GLARGINE [LANTus] (100 UNITS/ML) SYG SC SCH (09:36)
[2018-11-29] MEDS: ENOXAPARIN 80 MG/0.8 ML SYG SC SCH (09:36)
[2018-11-29] MEDS: LEVOFLOXACIN 500MG/D5W (PMX) 100 ML IVPB SCH (12:37)
--- NOTE | 2018-11-29 12:51 | PN ---
Date/Time of Note Date/Time of Note DATE: 11/29/18 TIME: 12:46 Assessment/Plan VTE Prophylaxis Risk score (from N[facility])>0 risk: 2 SCD applied (from [facility] [place] No SCD contraindicated: other Pharmacological prophylaxis: LMWH Lines/Catheters IV Catheter Type (from [facility]): Saline Lock Assessment/Plan Hospital Course SUBJECTIVE: Denies any chest pain. Diarrhea better. OBJECTIVE: Physical Exam General: Adequately build 67 year-old male lying in bed in no apparent distress. HEENT: Normocephalic, atraumatic. Eyes: Anicteric sclerae, conjunctivae clear. ENT: Nasal septum midline, oral mucosa moist. Neck supple, no JVD noticed. Respiratory: Bilaterally diminished breath sounds. No use of accessory muscles of respiration. No adventitious breath sounds. Cardiovascular: S1, S2 heard. Regular rate and rhythm. Abdomen: Soft, nontender, and nondistended. Bowel sounds positive in all 4 quadrants. Genitourinary: Deferred. Extremities: No cyanosis, no clubbing, no edema. Peripheral pulses palpable. Neurologic: Cranial nerves II through XII grossly intact. The patient is awake, alert, and oriented. Skin: Normal skin turgor. No skin rashes. Labs & Vitals per chart ASSESSMENT & PLAN This is a 67-year-old male with comorbidities including hypertension, diabetes mellitus type 2, iron deficiency anemia, coronary artery disease status post coronary artery stenting, dyslipidemia, and peripheral artery disease. The patient came to the emergency room with chief complaint of productive cough with chills and a thick purulent mucus production and sore throat. The patient also verbalized abdominal pain and diarrhea. The patient also was complaining of chest pain times 1 day. In the emergency room, the patient's chest x-ray was showing low lung volumes and bibasilar linear atelectasis. The patient had a minimal leukocytosis. The patient remained afebrile. The patient was admitted to inpatient setting for further treatment and evaluation. 1. Systemic inflammatory response syndrome with leukocytosis and tachycardia. -Pancultures negative so far. -De-escalate antimicrobials. 2. Peribronchial nodular infiltrate with adjacent ground-glass opacity in the right lower lobe. -Continue antimicrobials for community-acquired pneumonia. 3. NSTEMI. -Continue therapeutic dose of Lovenox. -Continue antiplatelet therapy. -Cardiology following. 4. Ischemic cardiomyopathy. -Ejection fraction 35-40%. -Continue BBs and ACEI. 5. Diabetes mellitus type 2. -Continue sliding scale insulin along with basal insulin. -Hemoglobin A1c 8.8. 6. Dyslipidemia. -Continue statins. 7. Essential hypertension. -Continue antihypertensives. 8. Chronic iron deficiency anemia. -Continue iron supplements. 9. Peripheral artery disease. -Continue pentoxifylline. 10. Abdominal pain with diarrhea. -Etiology unclear. -Stool for C. difficile negative. -CT scan of the abdomen and pelvis showing no significant colonic wall thickening or pericolonic stranding to specifically suggest colitis. 11. Fluids, electrolytes, and nutrition. -Carbohydrate controlled diet. 12. DVT prophylaxis. -On therapeutic Lovenox. 13. Plan. -Continue therapeutic Lovenox. -Continue statins and aspirin. -Await further cardiology recommendations. -Decrease basal insulin dosing because of hypoglycemic episode. The patient was seen in collaboration with Dr. Taylor. Result Diagram: 11/29/18 0537 11/29/18 0536 Results 24hrs Laboratory Tests Test 11/28/18 13:31 11/28/18 18:41 11/28/18 20:56 11/29/18 05:36 Ferritin 292.0 H Troponin I 0.588 *H 0.522 *H B-Type 1310 H Natriuretic Peptide Bedside Glucose 116 97 Sodium Level 144 Potassium Level 4.0 Chloride Level 109 Carbon Dioxide 30 Level Anion Gap 5 Blood Urea 21 H Nitrogen Creatinine 0.72 Est Glomerular > 60 Filtrat Rate mL/min Glucose Level 47 #*L Calcium Level 9.1 Phosphorus Level 3.1 Magnesium Level 1.8 Test 11/29/18 05:37 11/29/18 08:26 11/29/18 09:28 11/29/18 12:39 White Blood 7.5 # Count Red Blood Count 3.70 L Hemoglobin 11.4 L Hematocrit 34.4 L Mean Corpuscular 93.0 Volume Mean Corpuscular 30.8 Hemoglobin Mean Corpuscular 33.1 Hemoglobin Yessi nt Red Cell 12.8 Distribution Width Platelet Count 239 # Mean Platelet 10.3 Volume Immature 0.300 Granulocytes % Neutrophils % 58.2 Lymphocytes % 33.2 Monocytes % 6.8 Eosinophils % 1.2 Basophils % 0.3 Nucleated Red 0.0 Blood Cells % Immature 0.020 Granulocytes # Neutrophils # 4.4 Lymphocytes # 2.5 Monocytes # 0.5 Eosinophils # 0.1 Basophils # 0.0 Nucleated Red 0.0 Blood Cells # Bedside Glucose 71 148 159 Exam/Review of Systems Vital Signs Vitals Vital Signs Date Temp Pulse Resp B/P (MAP) Pulse Ox O2 O2 Flow FiO2 Time Delivery Rate 11/29/18 71 12:02 11/29/18 97.9 18 137/72 95 Room Air 11:25 (93) 11/29/18 2.0 07:30 11/26/18 21 16:58 Intake and Output 11/28/18 11/28/18 11/29/18 1515:00 23:00 07:00 IntakeIntake Total 600 ml BalanceBalance 600 ml Medications Medications Current Medications Alendronate Sodium (Fosamax) 70 mg Mo@0725 PO ; Start 11/30/18 at 07:25 Aspirin (Halfprin) 81 mg DAILY PO Last administered on 11/29/18at 09:29; Admin Dose 81 MG; Start 11/27/18 at 09:00 Atorvastatin Calcium (Lipitor) 20 mg QHS PO Last administered on 11/28/18at 20:57; Admin Dose 20 MG; Start 11/26/18 at 22:00 Ergocalciferol (Drisdol) 50,000 unit Q7D PO Last administered on 11/26/18at 23:11; Admin Dose 50,000 UNIT; Start 11/26/18 at 21:00 Ferrous Sulfate (Ferrous Sulfate (Ec)) 325 mg BID PO Last administered on 1 at 09:30; Admin Dose 325 MG; Start 11/26/18 at 21:00 Gabapentin (Neurontin) 600 mg TID PO Last administered on 11/29/18at 09:30; Admin Dose 600 MG; Start 11/26/18 at 21:00 Diagnostic Test (Pha) (Accu-Chek) 1 ea 02 XX Last administered on 11/27/18at 02:17; Admin Dose 1 EA; Start 11/27/18 at 02:00 IV Flush (NS 3 ml) 3 ml PER PROTOCOL IV ; Start 11/26/18 at 21:00 Ondansetron HCl (Zofran Inj) 4 mg Q6H PRN IV NAUSEA AND/OR VOMITING; Start 11/26/18 at 21:00 Nitroglycerin (Nitroglycerin (Sl Tab) 0.4 Mg) 1 tab Q5M PRN SL CHEST PAIN; Start 11/26/18 at 21:00 Acetaminophen (Tylenol Tab) 650 mg Q6H PRN PO PAIN LEVEL 1-3 OR FEVER; Start 11/26/18 at 21:00 Docusate Sodium (Colace) 100 mg Q12H PRN PO CONSTIPATION; Start 11/26/18 at 21:00 Bisacodyl (Dulcolax) 5 mg DAILY PRN PO CONSTIPATION; Start 11/26/18 at 21:00 Levalbuterol (Xopenex Neb) 1.25 mg Q4H RESP THERAPY PRN HHN WHEEZING AND SOB; Start 11/26/18 at 21:00 Miscellaneous Information 1 ea NOTE XX ; Start 11/26/18 at 22:00 Glucose (Glutose) 15 gm Q15M PRN PO DECREASED GLUCOSE; Start 11/26/18 at 22:00 Glucose (Glutose) 22.5 gm Q15M PRN PO DECREASED GLUCOSE; Start 11/26/18 at 22:00 Dextrose (D50w Syringe) 25 ml Q15M PRN IV DECREASED GLUCOSE; Start 11/26/18 at 22:00 Dextrose (D50w Syringe) 50 ml Q15M PRN IV DECREASED GLUCOSE; Start 11/26/18 at 22:00 Glucagon (Glucagen) 1 mg Q15M PRN IM DECREASED GLUCOSE; Start 11/26/18 at 22:00 Glucose (Glutose) 15 gm Q15M PRN BUCCAL DECREASED GLUCOSE; Start 11/26/18 at 22:00 Insulin Aspart (Novolog Insulin Pen) NOVOLOG *MODERATE* ALGORITHM WITH MEALS BEDTIME SC Last administered on 11/27/18at 17:24; Admin Dose 6 UNIT; Start 11/27/18 at 07:55 Amlodipine Besylate (Norvasc) 10 mg DAILY PO Last administered on 11/29/18at 09:30; Admin Dose 10 MG; Start 11/27/18 at 09:00 Pentoxifylline (Trental) 400 mg WITH MEALS PO Last administered on 11/29/18at 09:29; Admin Dose 400 MG; Start 11/27/18 at 07:55 Enoxaparin Sodium (Lovenox) 65 mg Q12 SC Last administered on 11/29/18at 09:36; Admin Dose 65 MG; Start 11/27/18 at 09:00 Metoprolol Succinate (Toprol Xl) 25 mg DAILY PO Last administered on 11/29/18 09:30; Admin Dose 25 MG; Start 11/28/18 at 09:00 Hydralazine HCl (Apresoline) 10 mg Q6H PRN IV SBP>160 Last administered on 11/28/18 12:23; Admin Dose 10 MG; Start 11/28/18 at 12:00 Saccharomyces Boulardii (Florastor) 250 mg BID PO Last administered on 11/29/18at 09:29; Admin Dose 250 MG; Start 11/28/18 at 21:00 Levofloxacin/ Dextrose 100 ml @ 100 mls/hr Q24H IVPB Last administered on 11/28/18at 15:48; Admin Dose 100 MLS/HR; Start 11/28/18 at 13:00 Benazepril HCl (Lotensin) 10 mg DAILY PO Last administered on 11/29/18 09:30; Admin Dose 10 MG; Start 11/29/18 at 09:00 Insulin Glargine (Lantus) 16 units DAILY SC ; Start 11/30/18 at 09:00 GILDARDO QUINTEROS NP Nov 29, 2018 12:51
--- NOTE | 2018-11-29 13:56 | CONS ---
Date/Time of Note Date/Time of Note DATE: 11/29/18 TIME: 13:53 Assessment/Plan Assessment/Plan Hospital Course IMPRESSION: 1. Non-ST elevation myocardial infarction in the setting of upper respiratory infection, likely type 2 demand infarct with known coronary artery disease.- downtrending cardiac enzymes 2. Chest pain could be due to patient's [id number] myocardial infarction which he had, but also in the setting of cough. 3. Abnormal electrocardiogram with lateral T-wave inversions. 4. Hypertension. 5. Dyslipidemia.-LDL 72 HDL 47 6. Upper respiratory infection. Negative flu swabs.-improving significantly 7. Diabetes mellitus with uncontrolled blood sugars. 8. Anemia. 9. Leukocytosis. 10. cardiomyopathy-LVEF 35-40 by echo this admit Recc: -Tele -trend cardiac enzymes -Continue BB/CCB -continue asa and consider addition of plavix to maximize medical therapy -Continue statin -Follow volume status closely given low EF -Continue abx's and f/u cx data -Continue current lovenox for now Result Diagram: 11/29/18 0537 11/29/18 0536 Results 24hrs Laboratory Tests Test 11/28/18 18:41 11/28/18 20:56 11/29/18 05:36 11/29/18 05:37 Bedside Glucose 116 97 Sodium Level 144 Potassium Level 4.0 Chloride Level 109 Carbon Dioxide 30 Level Anion Gap 5 Blood Urea 21 H Nitrogen Creatinine 0.72 Est Glomerular > 60 Filtrat Rate mL/min Glucose Level 47 #*L Calcium Level 9.1 Phosphorus Level 3.1 Magnesium Level 1.8 Troponin I 0.522 *H Prostate 0.6 Specific Antigen White Blood 7.5 # Count Red Blood Count 3.70 L Hemoglobin 11.4 L Hematocrit 34.4 L Mean Corpuscular 93.0 Volume Mean Corpuscular 30.8 Hemoglobin Mean Corpuscular 33.1 Hemoglobin Yessi nt Red Cell 12.8 Distribution Width Platelet Count 239 # Mean Platelet 10.3 Volume Immature 0.300 Granulocytes % Neutrophils % 58.2 Lymphocytes % 33.2 Monocytes % 6.8 Eosinophils % 1.2 Basophils % 0.3 Nucleated Red 0.0 Blood Cells % Immature 0.020 Granulocytes # Neutrophils # 4.4 Lymphocytes # 2.5 Monocytes # 0.5 Eosinophils # 0.1 Basophils # 0.0 Nucleated Red 0.0 Blood Cells # Test 11/29/18 08:26 11/29/18 09:28 11/29/18 12:39 Bedside Glucose 71 148 159 Consultation Date/Type/Reason Admit Date/Time Nov 26, 2018 at 18:46 Initial Consult Date 11/27/18 Type of Consult cardiology Reason for Consultation nstemi Requesting Provider: GILDARDO QUINTEROS NP Exam/Review of Systems Vital Signs Vitals Vital Signs Date Temp Pulse Resp B/P (MAP) Pulse Ox O2 O2 Flow FiO2 Time Delivery Rate 11/29/18 71 12:02 11/29/18 97.9 18 137/72 95 Room Air 11:25 (93) 11/29/18 2.0 07:30 11/26/18 21 16:58 Intake and Output 11/28/18 11/28/18 11/29/18 1515:00 23:00 07:00 IntakeIntake Total 600 ml BalanceBalance 600 ml Exam Review of Systems: CONSTITUTIONAL: No fevers, chills. PULMONARY: No sob CARDIOVASCULAR: No chest pain/palpitations GASTROINTESTINAL: No nausea/vomiting. GENITOURINARY: No hematuria/dysuria. MUSCULOSKELETAL: No myagias/arthalgias. PSYCHIATRIC: The patient denies depression. NEUROLOGIC: No weakness Constitutional: alert Psych: no complaints Head: normocephalic ENMT: mucosa pink and moist Neck: supple, jvd (9 cm water) Respiratory: diminished breath sounds (at bases/B) Cardiovascular: regular rate and rhythm Gastrointestinal: soft, non-tender Musculoskeletal: muscle tone (normal) Extremities: edema (none) Neurological: other (NO focal defiocits) Medications Medications Current Medications Alendronate Sodium (Fosamax) 70 mg Mo@0725 PO ; Start 11/30/18 at 07:25 Aspirin (Halfprin) 81 mg DAILY PO Last administered on 11/29/18at 09:29; Admin Dose 81 MG; Start 11/27/18 at 09:00 Atorvastatin Calcium (Lipitor) 20 mg QHS PO Last administered on 11/28/18at 20:57; Admin Dose 20 MG; Start 11/26/18 at 22:00 Ergocalciferol (Drisdol) 50,000 unit Q7D PO Last administered on 11/26/18at 23:11; Admin Dose 50,000 UNIT; Start 11/26/18 at 21:00 Ferrous Sulfate (Ferrous Sulfate (Ec)) 325 mg BID PO Last administered on 11/29/18at 09:30; Admin Dose 325 MG; Start 11/26/18 at 21:00 Gabapentin (Neurontin) 600 mg TID PO Last administered on 11/29/18at 12:37; Admin Dose 600 MG; Start 11/26/18 at 21:00 Diagnostic Test (Pha) (Accu-Chek) 1 ea 02 XX Last administered on 11/27/18at 02:17; Admin Dose 1 EA; Start 11/27/18 at 02:00 IV Flush (NS 3 ml) 3 ml PER PROTOCOL IV ; Start 11/26/18 at 21:00 Ondansetron HCl (Zofran Inj) 4 mg Q6H PRN IV NAUSEA AND/OR VOMITING; Start 11/26/18 at 21:00 Nitroglycerin (Nitroglycerin (Sl Tab) 0.4 Mg) 1 tab Q5M PRN SL CHEST PAIN; Start 11/26/18 at 21:00 Acetaminophen (Tylenol Tab) 650 mg Q6H PRN PO PAIN LEVEL 1-3 OR FEVER; Start 11/26/18 at 21:00 Docusate Sodium (Colace) 100 mg Q12H PRN PO CONSTIPATION; Start 11/26/18 at 21:00 Bisacodyl (Dulcolax) 5 mg DAILY PRN PO CONSTIPATION; Start 11/26/18 at 21:00 Levalbuterol (Xopenex Neb) 1.25 mg Q4H RESP THERAPY PRN HHN WHEEZING AND SOB; Start 11/26/18 at 21:00 Miscellaneous Information 1 ea NOTE XX ; Start 11/26/18 at 22:00 Glucose (Glutose) 15 gm Q15M PRN PO DECREASED GLUCOSE; Start 11/26/18 at 22:00 Glucose (Glutose) 22.5 gm Q15M PRN PO DECREASED GLUCOSE; Start 11/26/18 at 22:00 Dextrose (D50w Syringe) 25 ml Q15M PRN IV DECREASED GLUCOSE; Start 11/26/18 at 22:00 Dextrose (D50w Syringe) 50 ml Q15M PRN IV DECREASED GLUCOSE; Start 11/26/18 at 22:00 Glucagon (Glucagen) 1 mg Q15M PRN IM DECREASED GLUCOSE; Start 11/26/18 at 22:00 Glucose (Glutose) 15 gm Q15M PRN BUCCAL DECREASED GLUCOSE; Start 11/26/18 at 22:00 Insulin Aspart (Novolog Insulin Pen) NOVOLOG *MODERATE* ALGORITHM WITH MEALS BEDTIME SC Last administered on 11/29/18 12:46; Admin Dose 2 UNIT; Start 11/27/18 at 07:55 Amlodipine Besylate (Norvasc) 10 mg DAILY PO Last administered on 11/29/18 09:30; Admin Dose 10 MG; Start 11/27/18 at 09:00 Pentoxifylline (Trental) 400 mg WITH MEALS PO Last administered on 11/29/18 12:37; Admin Dose 400 MG; Start 11/27/18 at 07:55 Enoxaparin Sodium (Lovenox) 65 mg Q12 SC Last administered on 11/29/18 09:36; Admin Dose 65 MG; Start 11/27/18 at 09:00 Metoprolol Succinate (Toprol Xl) 25 mg DAILY PO Last administered on 11/29/18 09:30; Admin Dose 25 MG; Start 11/28/18 at 09:00 Hydralazine HCl (Apresoline) 10 mg Q6H PRN IV SBP>160 Last administered on 11/28/18 12:23; Admin Dose 10 MG; Start 11/28/18 at 12:00 Saccharomyces Boulardii (Florastor) 250 mg BID PO Last administered on 11/29/18 09:29; Admin Dose 250 MG; Start 11/28/18 at 21:00 Levofloxacin/ Dextrose 100 ml @ 100 mls/hr Q24H IVPB Last administered on 11/29/18 12:37; Admin Dose 100 MLS/HR; Start 11/28/18 at 13:00 Benazepril HCl (Lotensin) 10 mg DAILY PO Last administered on 11/29/18 09:30; Admin Dose 10 MG; Start 11/29/18 at 09:00 Insulin Glargine (Lantus) 16 units DAILY SC ; Start 11/30/18 at 09:00 LAZARO HECTOR Nov 29, 2018 13:56
[2018-11-29] MEDS: ATORVASTATIN 20 MG TAB PO SCH (21:35)
[2018-11-30] VITALS (10 sets, daily range): BP systolic 108–133; BP diastolic 61–71; PULSE 61–72; RESP 16–20
[2018-11-30] MEDS: ACCU-CHEK XX SCH (02:00)
--- NOTE | 2018-11-30 07:01 | NUR ---
End of shift notes: Vital signs remains stable. Denies any pain or any discomfort. Needs any pain. Keep safe and free from injury. Endorsed to day shift.
[2018-11-30] MEDS ORDERED: ALENDRONATE 70 MG TAB PO SCH (07:25)
[2018-11-30] MEDS: INSULIN ASPART [NOVOLOG] 3 ML PEN SC SCH ×4 (07:55→21:00)
[2018-11-30] MEDS: FERROUS SULFATE (EC) 325 MG TAB PO SCH ×2 (08:52→21:03)
[2018-11-30] MEDS: SACCHAROMYCES BOULARDII 250 MG CAP PO SCH ×2 (08:52→21:04)
[2018-11-30] MEDS: CLOPIDOGREL 75 MG TAB PO SCH (08:52)
[2018-11-30] MEDS: GABAPENTIN 300 MG CAP PO SCH ×3 (08:52→21:03)
[2018-11-30] MEDS: PENTOXIFYLLINE (SR) 400 MG TAB PO SCH ×3 (08:52→17:54)
[2018-11-30] MEDS: ASPIRIN (EC) 81 MG TAB PO SCH (08:52)
[2018-11-30] MEDS: AMLODIPINE 10 MG TAB PO SCH (09:01)
[2018-11-30] MEDS: BENAZEPRIL 10 MG TAB PO SCH (09:02)
[2018-11-30] MEDS: METOPROLOL (XL) 25 MG TAB PO SCH (09:02)
[2018-11-30] MEDS: INSULIN GLARGINE [LANTus] (100 UNITS/ML) SYG SC SCH (09:17)
[2018-11-30] MEDS: ENOXAPARIN 40 MG/0.4 ML SYG SC SCH (09:18)
[2018-11-30] MEDS: LEVOFLOXACIN 500MG/D5W (PMX) 100 ML IVPB SCH (12:17)
--- NOTE | 2018-11-30 15:01 | CONS ---
Date/Time of Note Date/Time of Note DATE: 11/30/18 TIME: 14:55 Assessment/Plan Assessment/Plan Hospital Course IMPRESSION: 1. Non-ST elevation myocardial infarction in the setting of upper respiratory infection, likely type 2 demand infarct with known coronary artery disease.- downtrending cardiac enzymes 2. Chest pain could be due to patient's [id number] myocardial infarction which he had, but also in the setting of cough. 3. Abnormal electrocardiogram with lateral T-wave inversions. 4. Hypertension. 5. Dyslipidemia.-LDL 72 HDL 47 6. Upper respiratory infection. Negative flu swabs.-improving significantly 7. Diabetes mellitus with uncontrolled blood sugars. 8. Anemia. 9. Leukocytosis. 10. cardiomyopathy-LVEF 35-40 by echo this admit Recc: -Tele -trend cardiac enzymes -Continue BB/CCB -continue asa and will give plavix to maximize medical therapy -Continue statin -Follow volume status closely given low EF and consider initiation of lasix gentle diuresis -Continue abx's and f/u cx data -Continue current lovenox for now Result Diagram: 11/30/18 0543 11/30/18 0543 Results 24hrs Laboratory Tests Test 11/29/18 17:48 11/29/18 21:35 11/30/18 05:43 11/30/18 08:31 Bedside Glucose 154 107 86 White Blood 6.0 Count Red Blood Count 3.45 L Hemoglobin 10.4 L Hematocrit 31.2 L Mean Corpuscular 90.4 Volume Mean Corpuscular 30.1 Hemoglobin Mean Corpuscular 33.3 Hemoglobin Yessi nt Red Cell 12.7 Distribution Width Platelet Count 223 Mean Platelet 10.2 Volume Immature 0.500 H Granulocytes % Neutrophils % 55.7 Lymphocytes % 34.3 Monocytes % 7.0 Eosinophils % 2.3 Basophils % 0.2 Nucleated Red 0.0 Blood Cells % Immature 0.030 Granulocytes # Neutrophils # 3.3 Lymphocytes # 2.1 Monocytes # 0.4 Eosinophils # 0.1 Basophils # 0.0 Nucleated Red 0.0 Blood Cells # Sodium Level 144 Potassium Level 4.4 Chloride Level 104 Carbon Dioxide 32 H Level Anion Gap 8 Blood Urea 21 H Nitrogen Creatinine 0.76 Est Glomerular > 60 Filtrat Rate mL/min Glucose Level 93 # Calcium Level 9.1 Phosphorus Level 4.0 Magnesium Level 1.7 Troponin I 0.336 *H Test 11/30/18 12:18 Bedside Glucose 97 Consultation Date/Type/Reason Admit Date/Time Nov 26, 2018 at 18:46 Initial Consult Date 11/27/18 Type of Consult cardiology Reason for Consultation Nstemi Requesting Provider: GILDARDO QUINTEROS FINISH INSPECTOR Exam/Review of Systems Vital Signs Vitals Vital Signs Date Temp Pulse Resp B/P (MAP) Pulse Ox O2 O2 Flow FiO2 Time Delivery Rate 11/30/18 67 12:01 11/30/18 98.2 16 111/61 96 11:33 (78) 11/30/18 Nasal 2.0 07:30 Cannula 11/26/18 21 16:58 Intake and Output 11/29/18 11/29/18 11/30/18 1414:59 22:59 06:59 IntakeIntake Total 900 ml BalanceBalance 900 ml Exam Review of Systems: CONSTITUTIONAL: No fevers, chills. PULMONARY: No sob CARDIOVASCULAR: No chest pain/palpitations GASTROINTESTINAL: No nausea/vomiting. GENITOURINARY: No hematuria/dysuria. MUSCULOSKELETAL: No myagias/arthalgias. PSYCHIATRIC: The patient denies depression. NEUROLOGIC: No weakness Constitutional: alert Psych: no complaints Head: normocephalic ENMT: mucosa pink and moist Neck: supple, jvd (9 cm water) Respiratory: diminished breath sounds (at bases/B) Cardiovascular: regular rate and rhythm Gastrointestinal: soft, non-tender Musculoskeletal: muscle tone (normal) Extremities: edema (none) Neurological: other (No focal deficits) Medications Medications Current Medications Alendronate Sodium (Fosamax) 70 mg Mo@0725 PO Last administered on 11/30/18at 08:52; Admin Dose 70 MG; Start 11/30/18 at 07:25 Aspirin (Halfprin) 81 mg DAILY PO Last administered on 11/30/18at 08:52; Admin Dose 81 MG; Start 11/27/18 at 09:00 Atorvastatin Calcium (Lipitor) 20 mg QHS PO Last administered on 11/29/18at 21:35; Admin Dose 20 MG; Start 11/26/18 at 22:00 Ergocalciferol (Drisdol) 50,000 unit Q7D PO Last administered on 11/26/18at 23:11; Admin Dose 50,000 UNIT; Start 11/26/18 at 21:00 Ferrous Sulfate (Ferrous Sulfate (Ec)) 325 mg BID PO Last administered on 11/30/18at 08:52; Admin Dose 325 MG; Start 11/26/18 at 21:00 Gabapentin (Neurontin) 600 mg TID PO Last administered on 11/30/18at 12:17; Admin Dose 600 MG; Start 11/26/18 at 21:00 Diagnostic Test (Pha) (Accu-Chek) 1 ea 02 XX Last administered on 11/27/18at 02:17; Admin Dose 1 EA; Start 11/27/18 at 02:00 IV Flush (NS 3 ml) 3 ml PER PROTOCOL IV ; Start 11/26/18 at 21:00 Ondansetron HCl (Zofran Inj) 4 mg Q6H PRN IV NAUSEA AND/OR VOMITING; Start 11/26/18 at 21:00 Nitroglycerin (Nitroglycerin (Sl Tab) 0.4 Mg) 1 tab Q5M PRN SL CHEST PAIN; Start 11/26/18 at 21:00 Acetaminophen (Tylenol Tab) 650 mg Q6H PRN PO PAIN LEVEL 1-3 OR FEVER; Start 11/26/18 at 21:00 Docusate Sodium (Colace) 100 mg Q12H PRN PO CONSTIPATION; Start 11/26/18 at 21:00 Bisacodyl (Dulcolax) 5 mg DAILY PRN PO CONSTIPATION; Start 11/26/18 at 21:00 Levalbuterol (Xopenex Neb) 1.25 mg Q4H RESP THERAPY PRN HHN WHEEZING AND SOB; Start 11/26/18 at 21:00 Miscellaneous Information 1 ea NOTE XX ; Start 11/26/18 at 22:00 Glucose (Glutose) 15 gm Q15M PRN PO DECREASED GLUCOSE; Start 11/26/18 at 22:00 Glucose (Glutose) 22.5 gm Q15M PRN PO DECREASED GLUCOSE; Start 11/26/18 at 22:00 Dextrose (D50w Syringe) 25 ml Q15M PRN IV DECREASED GLUCOSE; Start 11/26/18 at 22:00 Dextrose (D50w Syringe) 50 ml Q15M PRN IV DECREASED GLUCOSE; Start 11/26/18 at 22:00 Glucagon (Glucagen) 1 mg Q15M PRN IM DECREASED GLUCOSE; Start 11/26/18 at 22:00 Glucose (Glutose) 15 gm Q15M PRN BUCCAL DECREASED GLUCOSE; Start 11/26/18 at 22:00 Insulin Aspart (Novolog Insulin Pen) NOVOLOG *MODERATE* ALGORITHM WITH MEALS BEDTIME SC Last administered on 11/29/18 17:52; Admin Dose 2 UNIT; Start 11/27/18 at 07:55 Amlodipine Besylate (Norvasc) 10 mg DAILY PO Last administered on 11/30/18 09:01; Admin Dose 10 MG; Start 11/27/18 at 09:00 Pentoxifylline (Trental) 400 mg WITH MEALS PO Last administered on 11/30/18 12:17; Admin Dose 400 MG; Start 11/27/18 at 07:55 Metoprolol Succinate (Toprol Xl) 25 mg DAILY PO Last administered on 11/30/18 09:02; Admin Dose 25 MG; Start 11/28/18 at 09:00 Hydralazine HCl (Apresoline) 10 mg Q6H PRN IV SBP>160 Last administered on 11/28/18 12:23; Admin Dose 10 MG; Start 11/28/18 at 12:00 Saccharomyces Boulardii (Florastor) 250 mg BID PO Last administered on 11/30 08:52; Admin Dose 250 MG; Start 11/28/18 at 21:00 Levofloxacin/ Dextrose 100 ml @ 100 mls/hr Q24H IVPB Last administered on 11/30/18 12:17; Admin Dose 100 MLS/HR; Start 11/28/18 at 13:00 Benazepril HCl (Lotensin) 10 mg DAILY PO Last administered on 11/30/18 09:02; Admin Dose 10 MG; Start 11/29/18 at 09:00 Insulin Glargine (Lantus) 16 units DAILY SC Last administered on 11/30/18 09:17; Admin Dose 16 UNITS; Start 11/30/18 at 09:00 Enoxaparin Sodium (Lovenox) 40 mg DAILY SC Last administered on 11/30/18 09:18; Admin Dose 40 MG; Start 11/30/18 at 09:00 Clopidogrel Bisulfate (plaVIX) 75 mg DAILY PO Last administered on 11/30/18 08:52; Admin Dose 75 MG; Start 11/30/18 at 09:00 LAZARO HECTOR 31, 2018 15:01
--- NOTE | 2018-11-30 16:11 | PN ---
Date/Time of Note Date/Time of Note DATE: 11/30/18 TIME: 16:08 Assessment/Plan VTE Prophylaxis Risk score (from Ns)>0 risk: 2 SCD applied (from Ns): No SCD contraindicated: low risk/ambulating Pharmacological prophylaxis: LMWH Lines/Catheters [facility] [place] Assessment/Plan Hospital Course Assessment plan 1. Hcap vs community acquired pneumonia,, stable finish antibiotics. No evidence of influenza 2. Type II [place] stable observe 3. Chronic coronary disease/LAD stent, stable continue medical management follow-up with cardiology 4. Chronic ischemic cardia myopathy, EF 35 stable 5. Chronic dyslipidemia 6. PAD? 7. Dyslipidemia 8. Type 2 diabetes A1c 8.8 not at goal unfortunately 9. Past tobacco 10. COPD? 11. Subclinical hyperthyroidism? 12. Atypical chest pain likely related pneumonia 13. Iron deficiency anemia Subjective: Cough chest pain improved no fever. Objective: Vital signs stable sinus rhythm Physical exam No pallor JVD Regular no murmur gallop Clear no tachypnea Bs+ nt nd no r/rg No edema/Homans Result Diagram: 11/30/18 0543 11/30/18 0543 Results 24hrs Laboratory Tests Test 11/29/18 17:48 11/29/18 21:35 11/30/18 05:41 11/30/18 05:43 Bedside Glucose 154 107 B-Type 1030 H Natriuretic Peptide White Blood 6.0 Count Red Blood Count 3.45 L Hemoglobin 10.4 L Hematocrit 31.2 L Mean Corpuscular 90.4 Volume Mean Corpuscular 30.1 Hemoglobin Mean Corpuscular 33.3 Hemoglobin Yessi nt Red Cell 12.7 Distribution Width Platelet Count 223 Mean Platelet 10.2 Volume Immature 0.500 H Granulocytes % Neutrophils % 55.7 Lymphocytes % 34.3 Monocytes % 7.0 Eosinophils % 2.3 Basophils % 0.2 Nucleated Red 0.0 Blood Cells % Immature 0.030 Granulocytes # Neutrophils # 3.3 Lymphocytes # 2.1 Monocytes # 0.4 Eosinophils # 0.1 Basophils # 0.0 Nucleated Red 0.0 Blood Cells # Sodium Level 144 Potassium Level 4.4 Chloride Level 104 Carbon Dioxide 32 H Level Anion Gap 8 Blood Urea 21 H Nitrogen Creatinine 0.76 Est Glomerular > 60 Filtrat Rate mL/min Glucose Level 93 # Calcium Level 9.1 Phosphorus Level 4.0 Magnesium Level 1.7 Troponin I 0.336 *H Test 11/30/18 08:31 11/30/18 12:18 Bedside Glucose 86 97 Exam/Review of Systems Vital Signs Vitals Vital Signs Date Temp Pulse Resp B/P (MAP) Pulse Ox O2 O2 Flow FiO2 Time Delivery Rate 11/30/18 69 16:02 11/30/18 98.3 18 133/65 98 15:28 (87) 11/30/18 Nasal 2.0 07:30 Cannula 11/26/18 21 16:58 Intake and Output 11/29/18 11/29/18 11/30/18 1515:00 23:00 07:00 IntakeIntake Total 900 ml BalanceBalance 900 ml Medications Medications Current Medications Alendronate Sodium (Fosamax) 70 mg Mo@0725 PO Last administered on 11/30/18 08:52; Admin Dose 70 MG; Start 11/30/18 at 07:25 Aspirin (Halfprin) 81 mg DAILY PO Last administered on 11/30/18at 08:52; Admin Dose 81 MG; Start 11/27/18 at 09:00 Atorvastatin Calcium (Lipitor) 20 mg QHS PO Last administered on 11/29/18at 21:35; Admin Dose 20 MG; Start 11/26/18 at 22:00 Ergocalciferol (Drisdol) 50,000 unit Q7D PO Last administered on 11/26/18at 23:11; Admin Dose 50,000 UNIT; Start 11/26/18 at 21:00 Ferrous Sulfate (Ferrous Sulfate (Ec)) 325 mg BID PO Last administered on 11/30/18 08:52; Admin Dose 325 MG; Start 11/26/18 at 21:00 Gabapentin (Neurontin) 600 mg TID PO Last administered on 11/30/18 12:17; Admin Dose 600 MG; Start 11/26/18 at 21:00 Diagnostic Test (Pha) (Accu-Chek) 1 ea 02 XX Last administered on 11/27/18at 02:17; Admin Dose 1 EA; Start 11/27/18 at 02:00 IV Flush (NS 3 ml) 3 ml PER PROTOCOL IV ; Start 11/26/18 at 21:00 Ondansetron HCl (Zofran Inj) 4 mg Q6H PRN IV NAUSEA AND/OR VOMITING; Start 11/26/18 at 21:00 Nitroglycerin (Nitroglycerin (Sl Tab) 0.4 Mg) 1 tab Q5M PRN SL CHEST PAIN; Start 11/26/18 at 21:00 Acetaminophen (Tylenol Tab) 650 mg Q6H PRN PO PAIN LEVEL 1-3 OR FEVER; Start 11/26/18 at 21:00 Docusate Sodium (Colace) 100 mg Q12H PRN PO CONSTIPATION; Start 11/26/18 at 21:00 Bisacodyl (Dulcolax) 5 mg DAILY PRN PO CONSTIPATION; Start 11/26/18 at 21:00 Levalbuterol (Xopenex Neb) 1.25 mg Q4H RESP THERAPY PRN HHN WHEEZING AND SOB; Start 11/26/18 at 21:00 Miscellaneous Information 1 ea NOTE XX ; Start 11/26/18 at 22:00 Glucose (Glutose) 15 gm Q15M PRN PO DECREASED GLUCOSE; Start 11/26/18 at 22:00 Glucose (Glutose) 22.5 gm Q15M PRN PO DECREASED GLUCOSE; Start 11/26/18 at 22:00 Dextrose (D50w Syringe) 25 ml Q15M PRN IV DECREASED GLUCOSE; Start 11/26/18 at 22:00 Dextrose (D50w Syringe) 50 ml Q15M PRN IV DECREASED GLUCOSE; Start 11/26/18 at 22:00 Glucagon (Glucagen) 1 mg Q15M PRN IM DECREASED GLUCOSE; Start 11/26/18 at 22:00 Glucose (Glutose) 15 gm Q15M PRN BUCCAL DECREASED GLUCOSE; Start 11/26/18 at 22:00 Insulin Aspart (Novolog Insulin Pen) NOVOLOG *MODERATE* ALGORITHM WITH MEALS BEDTIME SC Last administered on 11/29/18at 17:52; Admin Dose 2 UNIT; Start 11/27/18 at 07:55 Amlodipine Besylate (Norvasc) 10 mg DAILY PO Last administered on 11/30/18at 09:01; Admin Dose 10 MG; Start 11/27/18 at 09:00 Pentoxifylline (Trental) 400 mg WITH MEALS PO Last administered on 11/30/18at 12:17; Admin Dose 400 MG; Start 11/27/18 at 07:55 Metoprolol Succinate (Toprol Xl) 25 mg DAILY PO Last administered on 11/30/18at 09:02; Admin Dose 25 MG; Start 11/28/18 at 09:00 Hydralazine HCl (Apresoline) 10 mg Q6H PRN IV SBP>160 Last administered on 11/28/18 12:23; Admin Dose 10 MG; Start 11/28/18 at 12:00 Saccharomyces Boulardii (Florastor) 250 mg BID PO Last administered on 11/30/18 08:52; Admin Dose 250 MG; Start 11/28/18 at 21:00 Levofloxacin/ Dextrose 100 ml @ 100 mls/hr Q24H IVPB Last administered on 11/30/18 12:17; Admin Dose 100 MLS/HR; Start 11/28/18 at 13:00 Benazepril HCl (Lotensin) 10 mg DAILY PO Last administered on 11/30/18 09:02; Admin Dose 10 MG; Start 11/29/18 at 09:00 Insulin Glargine (Lantus) 16 units DAILY SC Last administered on 11/30/18 09:17; Admin Dose 16 UNITS; Start 11/30/18 at 09:00 Enoxaparin Sodium (Lovenox) 40 mg DAILY SC Last administered on 11/30/18 09:18; Admin Dose 40 MG; Start 11/30/18 at 09:00 Clopidogrel Bisulfate (plaVIX) 75 mg DAILY PO Last administered on 11/30/18 08:52; Admin Dose 75 MG; Start 11/30/18 at 09:00 GAVIN BROCK MD Nov 30, 2018 16:11
[2018-11-30] MEDS ORDERED: IPRATROPIUM (HFA) 12.9 GM INHALER INH PRN (16:30)
[2018-11-30] MEDS ORDERED: GUAIFENESIN/DM 5ML CUP PO PRN (16:30)
[2018-11-30] MEDS: ATORVASTATIN 20 MG TAB PO SCH (21:19)
[2018-12-01] VITALS (11 sets, daily range): BP systolic 117–142; BP diastolic 60–80; PULSE 69–78; RESP 18
[2018-12-01] MEDS: ACCU-CHEK XX SCH (02:00)
[2018-12-01] MEDS: LEVOFLOXACIN 500 MG TAB PO SCH (05:59)
--- NOTE | 2018-12-01 06:40 | NUR ---
End of shift notes: Vital signs remains stable. SR on the monitor. Denies any pain or any discomfort. Keep safe and free from injury.Needs attended, endorsed to day shift.
[2018-12-01] MEDS: ASPIRIN (EC) 81 MG TAB PO SCH (09:15)
[2018-12-01] MEDS: CLOPIDOGREL 75 MG TAB PO SCH (09:15)
[2018-12-01] MEDS: BENAZEPRIL 10 MG TAB PO SCH (09:15)
[2018-12-01] MEDS: GABAPENTIN 300 MG CAP PO SCH ×3 (09:15→20:08)
[2018-12-01] MEDS: SACCHAROMYCES BOULARDII 250 MG CAP PO SCH ×2 (09:15→20:08)
[2018-12-01] MEDS: METOPROLOL (XL) 25 MG TAB PO SCH (09:16)
[2018-12-01] MEDS: PENTOXIFYLLINE (SR) 400 MG TAB PO SCH ×3 (09:16→17:17)
[2018-12-01] MEDS: FERROUS SULFATE (EC) 325 MG TAB PO SCH ×2 (09:16→20:08)
[2018-12-01] MEDS: AMLODIPINE 10 MG TAB PO SCH (09:16)
[2018-12-01] MEDS: INSULIN GLARGINE [LANTus] (100 UNITS/ML) SYG SC SCH (09:22)
[2018-12-01] MEDS: ENOXAPARIN 40 MG/0.4 ML SYG SC SCH (09:22)
[2018-12-01] MEDS: INSULIN ASPART [NOVOLOG] 3 ML PEN SC SCH ×4 (09:22→20:43)
--- NOTE | 2018-12-01 14:21 | CONS ---
Date/Time of Note Date/Time of Note DATE: 12/01/18 TIME: 14:20 Assessment/Plan Assessment/Plan Hospital Course IMPRESSION: 1. Non-ST elevation myocardial infarction in the setting of upper respiratory infection, likely type 2 demand infarct with known coronary artery disease.- downtrending cardiac enzymes 2. Chest pain could be due to patient's [id number] myocardial infarction which he had, but also in the setting of cough. 3. Abnormal electrocardiogram with lateral T-wave inversions. 4. Hypertension. 5. Dyslipidemia.-LDL 72 HDL 47 6. Upper respiratory infection. Negative flu swabs.-improving significantly 7. Diabetes mellitus with uncontrolled blood sugars. 8. Anemia. 9. Leukocytosis. 10. cardiomyopathy-LVEF 35-40 by echo this admit Recc: -Tele -trend cardiac enzymes -Continue BB/CCB -continue asa and will give plavix to maximize medical therapy -Continue statin -Follow volume status closely given low EF and consider initiation of lasix gentle diuresis -Continue abx's and f/u cx data -Continue current lovenox for now Result Diagram: 12/01/18 0545 12/01/18 0545 Results 24hrs Laboratory Tests Test 11/30/18 17:48 11/30/18 21:03 12/01/18 05:45 12/01/18 08:47 Bedside Glucose 169 140 209 White Blood Count 6.1 Red Blood Count 3.41 L Hemoglobin 10.5 L Hematocrit 30.8 L Mean Corpuscular 90.3 Volume Mean Corpuscular 30.8 Hemoglobin Mean Corpuscular 34.1 Hemoglobin Concent Red Cell 12.6 Distribution Width Platelet Count 234 Mean Platelet Volume 10.0 Immature 1.100 H Granulocytes % Neutrophils % 53.1 Lymphocytes % 34.3 Monocytes % 7.4 Eosinophils % 3.8 Basophils % 0.3 Nucleated Red Blood 0.0 Cells % Immature 0.070 H Granulocytes # Neutrophils # 3.2 Lymphocytes # 2.1 Monocytes # 0.5 Eosinophils # 0.2 Basophils # 0.0 Nucleated Red Blood 0.0 Cells # Sodium Level 142 Potassium Level 4.5 Chloride Level 104 Carbon Dioxide Level 33 H Anion Gap 5 Blood Urea Nitrogen 20 Creatinine 0.88 Est Glomerular > 60 Filtrat Rate mL/min Glucose Level 182 Calcium Level 8.9 Magnesium Level 1.7 Total Bilirubin 0.1 L Direct Bilirubin 0.00 Indirect Bilirubin 0.1 Aspartate Amino 33 Transf (AST/SGOT) Alanine 32 Aminotransferase (AL T/SGPT) Alkaline Phosphatase 46 Total Protein 5.5 L Albumin 2.9 L Globulin 2.60 Albumin/Globulin 1.11 Ratio Triglycerides Level 128 Cholesterol Level 104 LDL Cholesterol, 43 Calculated HDL Cholesterol 35 Cholesterol/HDL 2.9 Ratio Test 12/01/18 12:03 Bedside Glucose 174 Consultation Date/Type/Reason Admit Date/Time Nov 26, 2018 at 18:46 Initial Consult Date 11/27/18 Type of Consult cardiology Reason for Consultation Nstemi Requesting Provider: GILDARDO QUINTEROS [employer] Exam/Review of Systems Vital Signs Vitals Vital Signs Date Temp Pulse Resp B/P (MAP) Pulse Ox O2 O2 Flow FiO2 Time Delivery Rate 12/01/18 71 12:52 12/01/18 98.4 18 124/65 95 11:32 (84) 12/01/18 Nasal 2.0 07:30 Cannula Intake and Output 11/30/18 11/30/18 12/01/18 1515:00 23:00 07:00 IntakeIntake Total 750 ml 650 ml 700 ml OutputOutput Total 350 ml BalanceBalance 750 ml 300 ml 700 ml Exam Review of Systems: CONSTITUTIONAL: No fevers, chills. PULMONARY: No sob CARDIOVASCULAR: No chest pain/palpitations GASTROINTESTINAL: No nausea/vomiting. GENITOURINARY: No hematuria/dysuria. MUSCULOSKELETAL: No myagias/arthalgias. PSYCHIATRIC: The patient denies depression. NEUROLOGIC: No weakness Constitutional: alert, oriented Psych: no complaints Head: normocephalic ENMT: mucosa pink and moist Neck: supple, jvd (9 cm watert) Respiratory: clear to auscultation Cardiovascular: regular rate and rhythm Gastrointestinal: soft, non-tender Musculoskeletal: muscle tone (normal) Extremities: edema (none) Neurological: other (No focal deficits) Medications Medications Current Medications Alendronate Sodium (Fosamax) 70 mg Mo@0725 PO Last administered on 11/30/18at 08:52; Admin Dose 70 MG; Start 11/30/18 at 07:25 Aspirin (Halfprin) 81 mg DAILY PO Last administered on 12/01/18at 09:15; Admin Dose 81 MG; Start 11/27/18 at 09:00 Atorvastatin Calcium (Lipitor) 20 mg QHS PO Last administered on 11/30/18at 21:19; Admin Dose 20 MG; Start 11/26/18 at 22:00 Ergocalciferol (Drisdol) 50,000 unit Q7D PO Last administered on 11/26/18at 23:11; Admin Dose 50,000 UNIT; Start 11/26/18 at 21:00 Ferrous Sulfate (Ferrous Sulfate (Ec)) 325 mg BID PO Last administered on 12/01/18 09:16; Admin Dose 325 MG; Start 11/26/18 at 21:00 Gabapentin (Neurontin) 600 mg TID PO Last administered on 12/01/18 09:15; Admin Dose 600 MG; Start 11/26/18 at 21:00 Diagnostic Test (Pha) (Accu-Chek) 1 ea 02 XX Last administered on 11/27/18at 02:17; Admin Dose 1 EA; Start 11/27/18 at 02:00 IV Flush (NS 3 ml) 3 ml PER PROTOCOL IV ; Start 11/26/18 at 21:00 Ondansetron HCl (Zofran Inj) 4 mg Q6H PRN IV NAUSEA AND/OR VOMITING; Start 11/26/18 at 21:00 Nitroglycerin (Nitroglycerin (Sl Tab) 0.4 Mg) 1 tab Q5M PRN SL CHEST PAIN; Start 11/26/18 at 21:00 Acetaminophen (Tylenol Tab) 650 mg Q6H PRN PO PAIN LEVEL 1-3 OR FEVER; Start 11/26/18 at 21:00 Docusate Sodium (Colace) 100 mg Q12H PRN PO CONSTIPATION; Start 11/26/18 at 21:00 Bisacodyl (Dulcolax) 5 mg DAILY PRN PO CONSTIPATION; Start 11/26/18 at 21:00 Levalbuterol (Xopenex Neb) 1.25 mg Q4H RESP THERAPY PRN HHN WHEEZING AND SOB; Start 11/26/18 at 21:00 Miscellaneous Information 1 ea NOTE XX ; Start 11/26/18 at 22:00 Glucose (Glutose) 15 gm Q15M PRN PO DECREASED GLUCOSE; Start 11/26/18 at 22:00 Glucose (Glutose) 22.5 gm Q15M PRN PO DECREASED GLUCOSE; Start 11/26/18 at 22:00 Dextrose (D50w Syringe) 25 ml Q15M PRN IV DECREASED GLUCOSE; Start 11/26/18 at 22:00 Dextrose (D50w Syringe) 50 ml Q15M PRN IV DECREASED GLUCOSE; Start 11/26/18 at 22:00 Glucagon (Glucagen) 1 mg Q15M PRN IM DECREASED GLUCOSE; Start 11/26/18 at 22:00 Glucose (Glutose) 15 gm Q15M PRN BUCCAL DECREASED GLUCOSE; Start 11/26/18 at 22:00 Insulin Aspart (Novolog Insulin Pen) NOVOLOG *MODERATE* ALGORITHM WITH MEALS BEDTIME SC Last administered on 12/01/18 12:07; Admin Dose 2 UNIT; Start 11/27/18 at 07:55 Amlodipine Besylate (Norvasc) 10 mg DAILY PO Last administered on 12/01/18 09:16; Admin Dose 10 MG; Start 11/27/18 at 09:00 Pentoxifylline (Trental) 400 mg WITH MEALS PO Last administered on 12/01/18 12:04; Admin Dose 400 MG; Start 11/27/18 at 07:55 Metoprolol Succinate (Toprol Xl) 25 mg DAILY PO Last administered on 12/01/18 09:16; Admin Dose 25 MG; Start 11/28/18 at 09:00 Hydralazine HCl (Apresoline) 10 mg Q6H PRN IV SBP>160 Last administered on 11/28/18at 12:23; Admin Dose 10 MG; Start 11/28/18 at 12:00 Saccharomyces Boulardii (Florastor) 250 mg BID PO Last administered on 12/01/18 09:15; Admin Dose 250 MG; Start 11/28/18 at 21:00 Benazepril HCl (Lotensin) 10 mg DAILY PO Last administered on 12/01/18 09:15; Admin Dose 10 MG; Start 11/29/18 at 09:00 Insulin Glargine (Lantus) 16 units DAILY SC Last administered on 12/01/18 09:22; Admin Dose 16 UNITS; Start 11/30/18 at 09:00 Enoxaparin Sodium (Lovenox) 40 mg DAILY SC Last administered on 12/01/18 09:22; Admin Dose 40 MG; Start 11/30/18 at 09:00 Clopidogrel Bisulfate (plaVIX) 75 mg DAILY PO Last administered on 1/1/19at 09:15; Admin Dose 75 MG; Start 11/30/18 at 09:00 Levofloxacin (Levaquin) 500 mg DAILY@06 PO Last administered on 12/01/18at 05:59; Admin Dose 500 MG; Start 12/01/18 at 06:00 Guaifenesin/ Dextromethorphan (Robitussin Dm Liquid Cup) 10 ml Q4H PRN PO COUGH; Start 11/30/18 at 16:30 Ipratropium [place] (Atrovent Hfa) 2 puff Q6H RESP THERAPY PRN INH SHORTNESS OF BREATH; Start 11/30/18 at 16:30 LAZARO HECTOR Dec 01, 2018 14:21
--- NOTE | 2018-12-01 17:39 | PN ---
Date/Time of Note Date/Time of Note DATE: 12/01/18 TIME: 17:38 Assessment/Plan VTE Prophylaxis Risk score (from Ns)>0 risk: 2 SCD applied (from Ns): No SCD contraindicated: low risk/ambulating Pharmacological prophylaxis: LMWH Lines/Catheters IV Catheter Type (from [facility]): Saline Lock Assessment/Plan Hospital Course Assessment plan 1. Hcap vs cap, stable finish antibiotics. No influenza 2. Type II [place] stable observe 3. Chronic coronary disease/LAD stent, stable continue medical management follow-up with cardiology 4. Chronic ischemic cardiomyopathy, EF 35 stable 5. Chronic dyslipidemia 6. PAD? 7. Dyslipidemia 8. Type 2 diabetes A1c 8.8 not at goal unfortunately 9. Past tobacco 10. COPD? 11. Subclinical hyperthyroidism? 12. Atypical chest pain likely related pneumonia 13. Iron deficiency anemia S: 11/30 cough chest pain improved no fever. 12/01: No distress. Less cough Objective: Vital signs stable sinus rhythm Physical exam No pallor JVD Regular no mrg Clear no tachypnea Bs+ nt nd no r/rg No edema/Homans Result Diagram: 12/01/18 0545 12/01/18 0545 Results 24hrs Laboratory Tests Test 11/30/18 17:48 11/30/18 21:03 12/01/18 05:45 12/01/18 08:47 Bedside Glucose 169 140 209 White Blood Count 6.1 Red Blood Count 3.41 L Hemoglobin 10.5 L Hematocrit 30.8 L Mean Corpuscular 90.3 Volume Mean Corpuscular 30.8 Hemoglobin Mean Corpuscular 34.1 Hemoglobin Concent Red Cell 12.6 Distribution Width Platelet Count 234 Mean Platelet Volume 10.0 Immature 1.100 H Granulocytes % Neutrophils % 53.1 Lymphocytes % 34.3 Monocytes % 7.4 Eosinophils % 3.8 Basophils % 0.3 Nucleated Red Blood 0.0 Cells % Immature 0.070 H Granulocytes # Neutrophils # 3.2 Lymphocytes # 2.1 Monocytes # 0.5 Eosinophils # 0.2 Basophils # 0.0 Nucleated Red Blood 0.0 Cells # Sodium Level 142 Potassium Level 4.5 Chloride Level 104 Carbon Dioxide Level 33 H Anion Gap 5 Blood Urea Nitrogen 20 Creatinine 0.88 Est Glomerular > 60 Filtrat Rate mL/min Glucose Level 182 Calcium Level 8.9 Magnesium Level 1.7 Total Bilirubin 0.1 L Direct Bilirubin 0.00 Indirect Bilirubin 0.1 Aspartate Amino 33 Transf (AST/SGOT) Alanine 32 Aminotransferase (AL T/SGPT) Alkaline Phosphatase 46 Total Protein 5.5 L Albumin 2.9 L Globulin 2.60 Albumin/Globulin 1.11 Ratio Triglycerides Level 128 Cholesterol Level 104 LDL Cholesterol, 43 Calculated HDL Cholesterol 35 Cholesterol/HDL 2.9 Ratio Test 12/01/18 12:03 12/01/18 17:18 Bedside Glucose 174 158 Exam/Review of Systems Vital Signs Vitals Vital Signs Date Temp Pulse Resp B/P (MAP) Pulse Ox O2 O2 Flow FiO2 Time Delivery Rate 12/01/18 73 16:09 12/01/18 98.5 18 117/60 94 15:57 (79) 12/01/18 Nasal 2.0 07:30 Cannula Intake and Output 11/30/18 11/30/18 12/01/18 1515:00 23:00 07:00 IntakeIntake Total 750 ml 650 ml 700 ml OutputOutput Total 350 ml BalanceBalance 750 ml 300 ml 700 ml Medications Medications Current Medications Alendronate Sodium (Fosamax) 70 mg Mo@0725 PO Last administered on 11/30/18at 08:52; Admin Dose 70 MG; Start 11/30/18 at 07:25 Aspirin (Halfprin) 81 mg DAILY PO Last administered on 12/01/18at 09:15; Admin Dose 81 MG; Start 11/27/18 at 09:00 Atorvastatin Calcium (Lipitor) 20 mg QHS PO Last administered on 11/30/18at 21:19; Admin Dose 20 MG; Start 11/26/18 at 22:00 Ergocalciferol (Drisdol) 50,000 unit Q7D PO Last administered on 11/26/18at 23:11; Admin Dose 50,000 UNIT; Start 11/26/18 at 21:00 Ferrous Sulfate (Ferrous Sulfate (Ec)) 325 mg BID PO Last administered on 12/01/18at 09:16; Admin Dose 325 MG; Start 11/26/18 at 21:00 Gabapentin (Neurontin) 600 mg TID PO Last administered on 12/01/18 14:20; Admin Dose 600 MG; Start 11/26/18 at 21:00 Diagnostic Test (Pha) (Accu-Chek) 1 ea 02 XX Last administered on 11/27/18at 02:17; Admin Dose 1 EA; Start 11/27/18 at 02:00 IV Flush (NS 3 ml) 3 ml PER PROTOCOL IV ; Start 11/26/18 at 21:00 Ondansetron HCl (Zofran Inj) 4 mg Q6H PRN IV NAUSEA AND/OR VOMITING; Start 11/26/18 at 21:00 Nitroglycerin (Nitroglycerin (Sl Tab) 0.4 Mg) 1 tab Q5M PRN SL CHEST PAIN; Start 11/26/18 at 21:00 Acetaminophen (Tylenol Tab) 650 mg Q6H PRN PO PAIN LEVEL 1-3 OR FEVER; Start 11/26/18 at 21:00 Docusate Sodium (Colace) 100 mg Q12H PRN PO CONSTIPATION; Start 11/26/18 at 21:00 Bisacodyl (Dulcolax) 5 mg DAILY PRN PO CONSTIPATION; Start 11/26/18 at 21:00 Levalbuterol (Xopenex Neb) 1.25 mg Q4H RESP THERAPY PRN HHN WHEEZING AND SOB; Start 11/26/18 at 21:00 Miscellaneous Information 1 ea NOTE XX ; Start 11/26/18 at 22:00 Glucose (Glutose) 15 gm Q15M PRN PO DECREASED GLUCOSE; Start 11/26/18 at 22:00 Glucose (Glutose) 22.5 gm Q15M PRN PO DECREASED GLUCOSE; Start 11/26/18 at 22:00 Dextrose (D50w Syringe) 25 ml Q15M PRN IV DECREASED GLUCOSE; Start 11/26/18 at 22:00 Dextrose (D50w Syringe) 50 ml Q15M PRN IV DECREASED GLUCOSE; Start 11/26/18 at 22:00 Glucagon (Glucagen) 1 mg Q15M PRN IM DECREASED GLUCOSE; Start 11/26/18 at 22:00 Glucose (Glutose) 15 gm Q15M PRN BUCCAL DECREASED GLUCOSE; Start 11/26/18 at 22:00 Insulin Aspart (Novolog Insulin Pen) NOVOLOG *MODERATE* ALGORITHM WITH MEALS BEDTIME SC Last administered on 12/01/18at 17:27; Admin Dose 2 UNIT; Start 11/27/18 at 07:55 Amlodipine Besylate (Norvasc) 10 mg DAILY PO Last administered on 12/01/18at 09:16; Admin Dose 10 MG; Start 11/27/18 at 09:00 Pentoxifylline (Trental) 400 mg WITH MEALS PO Last administered on 12/01/18 17:17; Admin Dose 400 MG; Start 11/27/18 at 07:55 Metoprolol Succinate (Toprol Xl) 25 mg DAILY PO Last administered on 12/01/18 09:16; Admin Dose 25 MG; Start 11/28/18 at 09:00 Hydralazine HCl (Apresoline) 10 mg Q6H PRN IV SBP>160 Last administered on 11/28/18at 12:23; Admin Dose 10 MG; Start 11/28/18 at 12:00 Saccharomyces Boulardii (Florastor) 250 mg BID PO Last administered on 12/01/18 09:15; Admin Dose 250 MG; Start 11/28/18 at 21:00 Benazepril HCl (Lotensin) 10 mg DAILY PO Last administered on 12/01/18 09:15; Admin Dose 10 MG; Start 11/29/18 at 09:00 Insulin Glargine (Lantus) 16 units DAILY SC Last administered on 12/01/18 09:22; Admin Dose 16 UNITS; Start 11/30/18 at 09:00 Enoxaparin Sodium (Lovenox) 40 mg DAILY SC Last administered on 12/01/18 09:22; Admin Dose 40 MG; Start 11/30/18 at 09:00 Clopidogrel Bisulfate (plaVIX) 75 mg DAILY PO Last administered on 12/01/18 09:15; Admin Dose 75 MG; Start 11/30/18 at 09:00 Levofloxacin (Levaquin) 500 mg DAILY@06 PO Last administered on 12/01/18 05:59; Admin Dose 500 MG; Start 12/01/18 at 06:00 Guaifenesin/ Dextromethorphan (Robitussin Dm Liquid Cup) 10 ml Q4H PRN PO COUGH; Start 11/30/18 at 16:30 Ipratropium [place] (Atrovent Hfa) 2 puff Q6H RESP THERAPY PRN INH SHORTNESS OF BREATH; Start 11/30/18 at 16:30 GAVIN BROCK MD Dec 01, 2018 17:39
[2018-12-01] MEDS: ATORVASTATIN 20 MG TAB PO SCH (20:08)
[2018-12-02] VITALS (11 sets, daily range): BP systolic 106–131; BP diastolic 55–66; PULSE 65–78; RESP 18
[2018-12-02] MEDS: INSULIN ASPART [NOVOLOG] 3 ML PEN SC SCH ×4 (02:16→21:54)
[2018-12-02] MEDS: ACCU-CHEK XX SCH (02:17)
--- NOTE | 2018-12-02 06:23 | NUR ---
EOSS Pt. a/o x4. Pt denied any pain upon my shift. Vital signs stable. Hourly rounding completed. Bed in lowest position. Call light within reach. Will endorse continuity of care to day shift.
[2018-12-02] MEDS: LEVOFLOXACIN 500 MG TAB PO SCH (06:38)
[2018-12-02] MEDS: ASPIRIN (EC) 81 MG TAB PO SCH (08:38)
[2018-12-02] MEDS: FERROUS SULFATE (EC) 325 MG TAB PO SCH ×2 (08:38→20:37)
[2018-12-02] MEDS: CLOPIDOGREL 75 MG TAB PO SCH (08:38)
[2018-12-02] MEDS: AMLODIPINE 10 MG TAB PO SCH (08:39)
[2018-12-02] MEDS: PENTOXIFYLLINE (SR) 400 MG TAB PO SCH ×3 (08:39→17:09)
[2018-12-02] MEDS: BENAZEPRIL 10 MG TAB PO SCH (08:39)
[2018-12-02] MEDS: GABAPENTIN 300 MG CAP PO SCH ×3 (08:39→20:37)
[2018-12-02] MEDS: METOPROLOL (XL) 25 MG TAB PO SCH (08:40)
[2018-12-02] MEDS: SACCHAROMYCES BOULARDII 250 MG CAP PO SCH ×2 (08:40→20:37)
[2018-12-02] MEDS: ENOXAPARIN 40 MG/0.4 ML SYG SC SCH (08:44)
[2018-12-02] MEDS: INSULIN GLARGINE [LANTus] (100 UNITS/ML) SYG SC SCH (08:48)
--- NOTE | 2018-12-02 12:46 | CONS ---
Date/Time of Note Date/Time of Note DATE: 12/02/18 TIME: 12:45 Assessment/Plan Assessment/Plan Hospital Course IMPRESSION: 1. Non-ST elevation myocardial infarction in the setting of upper respiratory infection, likely type 2 demand infarct with known coronary artery disease.- downtrending cardiac enzymes 2. Chest pain could be due to patient's cip-KI-vvyfxavah myocardial infarction which he had, but also in the setting of cough. 3. Abnormal electrocardiogram with lateral T-wave inversions. 4. Hypertension. 5. Dyslipidemia.-LDL 72 HDL 47 6. Upper respiratory infection. Negative flu swabs.-improving significantly 7. Diabetes mellitus with uncontrolled blood sugars. 8. Anemia. 9. Leukocytosis. 10. cardiomyopathy-LVEF 35-40 by echo this admit Recc: -Tele -trend cardiac enzymes -Continue BB/CCB -continue asa/plavix -Continue statin -Follow volume status closely given low EF and consider initiation of lasix gentle diuresis -Continue abx's and f/u cx data -Continue current lovenox for now Result Diagram: 12/01/18 0545 12/01/18 0545 Results 24hrs Laboratory Tests Test 12/01/18 17:18 12/01/18 20:11 12/02/18 02:11 12/02/18 11:29 Bedside Glucose 158 247 H 246 H 238 H Consultation Date/Type/Reason Admit Date/Time Nov 26, 2018 at 18:46 Initial Consult Date 11/27/18 Type of Consult cardiology Reason for Consultation nstemi Requesting Provider: GILDARDO QUINTEROS YOUTH COORDINATOR Exam/Review of Systems Vital Signs Vitals Vital Signs Date Temp Pulse Resp B/P (MAP) Pulse Ox O2 O2 Flow FiO2 Time Delivery Rate 12/02/18 72 12:22 12/02/18 98.0 18 124/58 97 Room Air 11:02 (80) 12/02/18 2.0 08:00 Intake and Output 12/01/18 12/01/18 12/02/18 1515:00 23:00 07:00 IntakeIntake Total 840 ml 400 ml BalanceBalance 840 ml 400 ml Exam Review of Systems: CONSTITUTIONAL: No fevers, chills. PULMONARY: No sob CARDIOVASCULAR: No chest pain/palpitations GASTROINTESTINAL: No nausea/vomiting. GENITOURINARY: No hematuria/dysuria. MUSCULOSKELETAL: No myagias/arthalgias. PSYCHIATRIC: The patient denies depression. NEUROLOGIC: No weakness Constitutional: alert Psych: no complaints Head: normocephalic ENMT: mucosa pink and moist Neck: supple, jvd (9 cm water) Respiratory: diminished breath sounds (at bases/B) Cardiovascular: regular rate and rhythm Gastrointestinal: soft, non-tender Musculoskeletal: muscle tone (normal) Extremities: edema (none) Neurological: other (No focal deficits) Medications Medications Current Medications Alendronate Sodium (Fosamax) 70 mg Mo@0725 PO Last administered on 11/30/18 08:52; Admin Dose 70 MG; Start 11/30/18 at 07:25 Aspirin (Halfprin) 81 mg DAILY PO Last administered on 12/02/18 08:38; Admin Dose 81 MG; Start 11/27/18 at 09:00 Atorvastatin Calcium (Lipitor) 20 mg QHS PO Last administered on 12/01/18 20:08; Admin Dose 20 MG; Start 11/26/18 at 22:00 Ergocalciferol (Drisdol) 50,000 unit Q7D PO Last administered on 11/26/18at 23:11; Admin Dose 50,000 UNIT; Start 11/26/18 at 21:00 Ferrous Sulfate (Ferrous Sulfate (Ec)) 325 mg BID PO Last administered on 12/02/18 08:38; Admin Dose 325 MG; Start 11/26/18 at 21:00 Gabapentin (Neurontin) 600 mg TID PO Last administered on 12/02/18 08:39; Admin Dose 600 MG; Start 11/26/18 at 21:00 Diagnostic Test (Pha) (Accu-Chek) 1 ea 02 XX Last administered on 12/02/18 02:17; Admin Dose 1 EA; Start 11/27/18 at 02:00 IV Flush (NS 3 ml) 3 ml PER PROTOCOL IV ; Start 11/26/18 at 21:00 Ondansetron HCl (Zofran Inj) 4 mg Q6H PRN IV NAUSEA AND/OR VOMITING; Start 11/26/18 at 21:00 Nitroglycerin (Nitroglycerin (Sl Tab) 0.4 Mg) 1 tab Q5M PRN SL CHEST PAIN; Start 11/26/18 at 21:00 Acetaminophen (Tylenol Tab) 650 mg Q6H PRN PO PAIN LEVEL 1-3 OR FEVER; Start 11/26/18 at 21:00 Docusate Sodium (Colace) 100 mg Q12H PRN PO CONSTIPATION; Start 11/26/18 at 21:00 Bisacodyl (Dulcolax) 5 mg DAILY PRN PO CONSTIPATION; Start 11/26/18 at 21:00 Levalbuterol (Xopenex Neb) 1.25 mg Q4H RESP THERAPY PRN HHN WHEEZING AND SOB; Start 11/26/18 at 21:00 Miscellaneous Information 1 ea NOTE XX ; Start 11/26/18 at 22:00 Glucose (Glutose) 15 gm Q15M PRN PO DECREASED GLUCOSE; Start 11/26/18 at 22:00 Glucose (Glutose) 22.5 gm Q15M PRN PO DECREASED GLUCOSE; Start 11/26/18 at 22:00 Dextrose (D50w Syringe) 25 ml Q15M PRN IV DECREASED GLUCOSE; Start 11/26/18 at 22:00 Dextrose (D50w Syringe) 50 ml Q15M PRN IV DECREASED GLUCOSE; Start 11/26/18 at 22:00 Glucagon (Glucagen) 1 mg Q15M PRN IM DECREASED GLUCOSE; Start 11/26/18 at 22:00 Glucose (Glutose) 15 gm Q15M PRN BUCCAL DECREASED GLUCOSE; Start 11/26/18 at 22:00 Insulin Aspart (Novolog Insulin Pen) NOVOLOG *MODERATE* ALGORITHM WITH MEALS BEDTIME SC Last administered on 12/02/18 11:35; Admin Dose 6 UNIT; Start 11/27/18 at 07:55 Amlodipine Besylate (Norvasc) 10 mg DAILY PO Last administered on 12/02/18 08:39; Admin Dose 10 MG; Start 11/27/18 at 09:00 Pentoxifylline (Trental) 400 mg WITH MEALS PO Last administered on 12/02/18 11:30; Admin Dose 400 MG; Start 11/27/18 at 07:55 Metoprolol Succinate (Toprol Xl) 25 mg DAILY PO Last administered on 12/02/18 08:40; Admin Dose 25 MG; Start 11/28/18 at 09:00 Hydralazine HCl (Apresoline) 10 mg Q6H PRN IV SBP>160 Last administered on 11/28/18at 12:23; Admin Dose 10 MG; Start 11/28/18 at 12:00 Saccharomyces Boulardii (Florastor) 250 mg BID PO Last administered on 12/02/18 08:40; Admin Dose 250 MG; Start 11/28/18 at 21:00 Benazepril HCl (Lotensin) 10 mg DAILY PO Last administered on 12/02/18 08:39; Admin Dose 10 MG; Start 11/29/18 at 09:00 Insulin Glargine (Lantus) 16 units DAILY SC Last administered on 12/02/18 08:48; Admin Dose 16 UNITS; Start 11/30/18 at 09:00 Enoxaparin Sodium (Lovenox) 40 mg DAILY SC Last administered on 12/02/18 08:44; Admin Dose 40 MG; Start 11/30/18 at 09:00 Clopidogrel Bisulfate (plaVIX) 75 mg DAILY PO Last administered on 12/02/18 08:38; Admin Dose 75 MG; Start 11/30/18 at 09:00 Levofloxacin (Levaquin) 500 mg DAILY@06 PO Last administered on 12/02/18 06:38; Admin Dose 500 MG; Start 12/01/18 at 06:00 Guaifenesin/ Dextromethorphan (Robitussin Dm Liquid Cup) 10 ml Q4H PRN PO COUGH; Start 11/30/18 at 16:30 Ipratropium [place] (Atrovent Hfa) 2 puff Q6H RESP THERAPY PRN INH SHORTNESS OF BREATH; Start 11/30/18 at 16:30 LAZARO HECTOR Dec 02, 2018 12:46
--- NOTE | 2018-12-02 15:00 | PN ---
Date/Time of Note Date/Time of Note DATE: 12/02/18 TIME: 14:59 Assessment/Plan VTE Prophylaxis Risk score (from Ns)>0 risk: 2 SCD applied (from Ns): No SCD contraindicated: low risk/ambulating Pharmacological prophylaxis: LMWH Lines/Catheters IV Catheter Type (from Nrs): [place] Assessment/Plan Hospital Course Assessment plan 1. Hcap vs cap, stable finish antibiotics. No influenza 2. Type II [place] stable observe 3. Chronic coronary disease/LAD stent, stable cont medical mngmnt follow-up with cardiology 4. Chronic ischemic cardiomyopathy, EF 35 stable, start Lasix, start Lasix on beta-ayden/JIMMY 5. Chronic dyslipidemia 6. PAD? 7. Dyslipidemia 8. Type 2 diabetes A1c 8.8 not at goal unfortunately 9. Past tobacco 10. COPD? 11. Subclinical hyperthyroidism? 12. Atypical chest pain likely related pneumonia 13. Iron deficiency anemia S: 11/30 cough chest pain improved no fever. 12/01: No distress. Less cough 12/02: No events no distress O: Vss sr PE No pallor JVD Regular no mrg Clear no tachypnea Bs+ nt nd no r/rg No edema/Homans Result Diagram: 12/01/18 0545 12/01/18 0545 Results 24hrs Laboratory Tests Test 12/01/18 17:18 12/01/18 20:11 12/02/18 02:11 12/02/18 11:29 Bedside Glucose 158 247 H 246 H 238 H Exam/Review of Systems Vital Signs Vitals Vital Signs Date Temp Pulse Resp B/P (MAP) Pulse Ox O2 O2 Flow FiO2 Time Delivery Rate 12/02/18 72 12:22 12/02/18 98.0 18 124/58 97 Room Air 11:02 (80) 12/02/18 2.0 08:00 Intake and Output 12/01/18 12/01/18 12/02/18 1515:00 23:00 07:00 IntakeIntake Total 840 ml 400 ml BalanceBalance 840 ml 400 ml Medications Medications Current Medications Alendronate Sodium (Fosamax) 70 mg Mo@0725 PO Last administered on 11/30/18at 08:52; Admin Dose 70 MG; Start 11/30/18 at 07:25 Aspirin (Halfprin) 81 mg DAILY PO Last administered on 1/2/19at 08:38; Admin Dose 81 MG; Start 11/27/18 at 09:00 Atorvastatin Calcium (Lipitor) 20 mg QHS PO Last administered on 12/01/18 20:08; Admin Dose 20 MG; Start 11/26/18 at 22:00 Ergocalciferol (Drisdol) 50,000 unit Q7D PO Last administered on 11/26/18at 23 :11; Admin Dose 50,000 UNIT; Start 11/26/18 at 21:00 Ferrous Sulfate (Ferrous Sulfate (Ec)) 325 mg BID PO Last administered on 12/02/18 08:38; Admin Dose 325 MG; Start 11/26/18 at 21:00 Gabapentin (Neurontin) 600 mg TID PO Last administered on 12/02/18 13:31; Admin Dose 600 MG; Start 11/26/18 at 21:00 Diagnostic Test (Pha) (Accu-Chek) 1 ea 02 XX Last administered on 12/02/18 02:17; Admin Dose 1 EA; Start 11/27/18 at 02:00 IV Flush (NS 3 ml) 3 ml PER PROTOCOL IV ; Start 11/26/18 at 21:00 Ondansetron HCl (Zofran Inj) 4 mg Q6H PRN IV NAUSEA AND/OR VOMITING; Start 11/26/18 at 21:00 Nitroglycerin (Nitroglycerin (Sl Tab) 0.4 Mg) 1 tab Q5M PRN SL CHEST PAIN; Start 11/26/18 at 21:00 Acetaminophen (Tylenol Tab) 650 mg Q6H PRN PO PAIN LEVEL 1-3 OR FEVER; Start 11/26/18 at 21:00 Docusate Sodium (Colace) 100 mg Q12H PRN PO CONSTIPATION; Start 11/26/18 at 21:00 Bisacodyl (Dulcolax) 5 mg DAILY PRN PO CONSTIPATION; Start 11/26/18 at 21:00 Levalbuterol (Xopenex Neb) 1.25 mg Q4H RESP THERAPY PRN HHN WHEEZING AND SOB; Start 11/26/18 at 21:00 Miscellaneous Information 1 ea NOTE XX ; Start 11/26/18 at 22:00 Glucose (Glutose) 15 gm Q15M PRN PO DECREASED GLUCOSE; Start 11/26/18 at 22:00 Glucose (Glutose) 22.5 gm Q15M PRN PO DECREASED GLUCOSE; Start 11/26/18 at 22:00 Dextrose (D50w Syringe) 25 ml Q15M PRN IV DECREASED GLUCOSE; Start 11/26/18 at 22:00 Dextrose (D50w Syringe) 50 ml Q15M PRN IV DECREASED GLUCOSE; Start 11/26/18 at 22:00 Glucagon (Glucagen) 1 mg Q15M PRN IM DECREASED GLUCOSE; Start 11/26/18 at 22:00 Glucose (Glutose) 15 gm Q15M PRN BUCCAL DECREASED GLUCOSE; Start 11/26/18 at 22:00 Insulin Aspart (Novolog Insulin Pen) NOVOLOG *MODERATE* ALGORITHM WITH MEALS BEDTIME SC Last administered on 12/02/18 11:35; Admin Dose 6 UNIT; Start 11/27/18 at 07:55 Amlodipine Besylate (Norvasc) 10 mg DAILY PO Last administered on 12/02/18 08:39; Admin Dose 10 MG; Start 11/27/18 at 09:00 Pentoxifylline (Trental) 400 mg WITH MEALS PO Last administered on 12/02/18 11:30; Admin Dose 400 MG; Start 11/27/18 at 07:55 Metoprolol Succinate (Toprol Xl) 25 mg DAILY PO Last administered on 12/02/18 08:40; Admin Dose 25 MG; Start 11/28/18 at 09:00 Hydralazine HCl (Apresoline) 10 mg Q6H PRN IV SBP>160 Last administered on 11/28/18at 12:23; Admin Dose 10 MG; Start 11/28/18 at 12:00 Saccharomyces Boulardii (Florastor) 250 mg BID PO Last administered on 12/02/18 08:40; Admin Dose 250 MG; Start 11/28/18 at 21:00 Benazepril HCl (Lotensin) 10 mg DAILY PO Last administered on 12/02/18 08:39; Admin Dose 10 MG; Start 11/29/18 at 09:00 Insulin Glargine (Lantus) 16 units DAILY SC Last administered on 12/02/18 08:48; Admin Dose 16 UNITS; Start 11/30/18 at 09:00 Enoxaparin Sodium (Lovenox) 40 mg DAILY SC Last administered on 1/2/19at 08:44; Admin Dose 40 MG; Start 11/30/18 at 09:00 Clopidogrel Bisulfate (plaVIX) 75 mg DAILY PO Last administered on 12/02/18at 08:38; Admin Dose 75 MG; Start 11/30/18 at 09:00 Levofloxacin (Levaquin) 500 mg DAILY@06 PO Last administered on 12/02/18at 06:38; Admin Dose 500 MG; Start 12/01/18 at 06:00 Guaifenesin/ Dextromethorphan (Robitussin Dm Liquid Cup) 10 ml Q4H PRN PO COUGH; Start 11/30/18 at 16:30 Ipratropium [place] (Atrovent Hfa) 2 puff Q6H RESP THERAPY PRN INH SHORTNESS OF BREATH; Start 11/30/18 at 16:30 Famotidine (Pepcid) 20 mg DAILY PO ; Start 12/03/18 at 09:00 Furosemide (Lasix) 20 mg DAILY PO ; Start 12/03/18 at 09:00 GAVIN BROCK MD Dec 02, 2018 15:00
--- NOTE | 2018-12-02 15:13 | NUR ---
ELIZABET NOTES: S/W PT AT BEDSIDE AND WAS INFORMED PER PT THAT HE LIVES IN AN APARTMENT W/ 2 OTHER ROOM MATES. PT HAS A 4-WHEEL WALKER AT BEDSIDE. CALLED TO [facility] ([phone]-PT'S CAREGIVER AND DEALER DEVELOPMENT MANAGER ON THE [employer]) TO INFORM HER THAT MD HAS ORDERED HH SERVICES. SHE SAID THAT THEY HAD HH SERVICES BEFORE BUT THEY JUST CANCEL IT BECAUSE PT GOES TO AN [facility] ([facility]) WHERE HE GOES 4X/WK. SHE SAID THAT THERE ARE NURSES, PT AND OT AND THEY CHECK HIS BP AND BLD SUGAR AND ALSO GIVE HIS MEDS/INSULIN. THE CENTER ALSO PROVIDES FOR HIS TRANSPORTATION TO AND FROM THE CENTER. RAFAL ALSO SAID THAT SHE CAN ANNUAL GIVING DIRECTOR PT TOMORROW IF HE WILL BE DISCHARGED. VICK HOFFMAN, JANNETHCM [phone]
--- NOTE | 2018-12-02 15:27 | NUR ---
PT EVALUATION NOTE: Patient is a 68 year old male admitted to [facility] after presenting to the ER with complaint of chest pain and SOB. PMH: iron deficiency anemia, diabetes mellitus, hyperlipidemia, osteoporosis, hypertension, coronary artery disease, peripheral artery disease PRECAUTIONS: fall risk PLOF: Patient is a poor historian. Initially patient stated that he lives in an apartment with 2 other people who are not family members. Then patient stated that he lives in a hospital. Case management working on clarifying living situation. Patient has a 4 wheeled walker in the room. CLOF: Jay LAGUNAS cleared patient for PT evaluation. Patient received walking out of bathroom with SUPERVISOR CELLARS assistance. Patient agreed to participate with PT evaluation, c/o pain bilateral LEs rated at 6/10. Patient educated in safety awareness, fall prevention and purpose of PT evaluation. Gait training x 80 feet with FWW and CGA, verbal cues for safety, denied dizziness with ambulation. Patient performed stand to sit transfer with SBA. Patient returned to bed with all needs met, call light within reach, bed alarm reset, no signs of distress. Jay LAGUNAS notified of patient's status at the end of the session. PT RECOMMENDATION: Patient will benefit from skilled inpatient PT intervention to address strength, balance, safety awareness and functional mobility. Recommend home health PT if patient discharged home when medically cleared by MD. Patient cleared for ambulation to toilet and up to chair with nursing staff and use of 4 wheeled walker.
--- NOTE | 2018-12-02 18:50 | NUR ---
RN NOTE PT IN STABLE CONDITION , WILL DC HOME TOMORROW , JEWEL INSPECTOR ON CASE .
[2018-12-02] MEDS: ATORVASTATIN 20 MG TAB PO SCH (20:37)
[2018-12-03] VITALS (11 sets, daily range): BP systolic 108–137; BP diastolic 56–67; PULSE 64–100; RESP 17–19
[2018-12-03] MEDS: ACCU-CHEK XX SCH (02:05)
[2018-12-03] MEDS: LEVOFLOXACIN 500 MG TAB PO SCH (05:20)
--- NOTE | 2018-12-03 06:57 | NUR ---
EOSS Patient stable throughout the night. Maintained on RA, saturating well high 90s%. NSR maintained. ACHS accuchecks continued. POC for DC today. All of patient's needs attended to. Minimal coughing throughout the night. Afebrile. No chest pain. Hourly rounding. Patient encouraged to reposition frequently. Will endorse care to AM nurse.
[2018-12-03] MEDS: PENTOXIFYLLINE (SR) 400 MG TAB PO SCH ×3 (08:00→17:02)
[2018-12-03] MEDS: INSULIN ASPART [NOVOLOG] 3 ML PEN SC SCH ×4 (08:01→20:50)
[2018-12-03] MEDS: INSULIN GLARGINE [LANTus] (100 UNITS/ML) SYG SC SCH (08:02)
[2018-12-03] MEDS: CLOPIDOGREL 75 MG TAB PO SCH (08:22)
[2018-12-03] MEDS: METOPROLOL (XL) 25 MG TAB PO SCH (08:22)
[2018-12-03] MEDS: AMLODIPINE 10 MG TAB PO SCH (08:22)
[2018-12-03] MEDS: FERROUS SULFATE (EC) 325 MG TAB PO SCH ×2 (08:23→20:39)
[2018-12-03] MEDS: FUROSEMIDE 20 MG TAB PO SCH (08:23)
[2018-12-03] MEDS: ASPIRIN (EC) 81 MG TAB PO SCH (08:23)
[2018-12-03] MEDS: FAMOTIDINE 20 MG TAB PO SCH (08:23)
[2018-12-03] MEDS: BENAZEPRIL 10 MG TAB PO SCH (08:23)
[2018-12-03] MEDS: SACCHAROMYCES BOULARDII 250 MG CAP PO SCH ×2 (08:23→20:39)
[2018-12-03] MEDS: GABAPENTIN 300 MG CAP PO SCH ×3 (08:23→20:39)
[2018-12-03] MEDS: ENOXAPARIN 40 MG/0.4 ML SYG SC SCH (08:29)
--- NOTE | 2018-12-03 09:45 | NUR ---
PT NOTE: S: Patient currently denies pain, reports pain RLE earlier in the morning. Patient agreeable to participate with PT treatment. O: Shaila LAGUNAS cleared patient for PT treatment. Patient received supine in bed. Supine BP 127/60, HR 68. Patient able to come to sitting position at EOB with supervision, takes extra time to complete task. Patient initially c/o dizziness upon sitting, resolved within 1 minute. Sitting BP 107/57, HR 69. Patient sat for 5 minutes prior to initiating gait training. Gait training x 120 feet with 4 wheeled walker and CGA. Patient demonstrated slow velocity with decreased bilateral step length, able to maneuver walker without assistance however verbal cues provided to avoid obstacles. Patient denied dizziness during ambulation. After ambulation BP 101/59, HR 68. Patient returned to bed, verbal cues for proper hand placement with stand to sit transfer. All needs met, call light within reach, bed alarm reset, no signs of distress. Shaila LAGUNAS notified of patient's VS and status at the end of the session. A: Good activity tolerance, denied dizziness with ambulation. Requires verbal cues for safety. P: Cont with POC.
--- NOTE | 2018-12-03 13:11 | CONS ---
Date/Time of Note Date/Time of Note DATE: 12/03/18 TIME: 13:09 Assessment/Plan Assessment/Plan Hospital Course IMPRESSION: 1. Non-ST elevation myocardial infarction in the setting of upper respiratory infection, likely type 2 demand infarct with known coronary artery disease.- downtrending cardiac enzymes 2. Chest pain could be due to patient's hql-MK-hzllzdfry myocardial infarction which he had, but also in the setting of cough. 3. Abnormal electrocardiogram with lateral T-wave inversions. 4. Hypertension. 5. Dyslipidemia.-LDL 72 HDL 47 6. Upper respiratory infection. Negative flu swabs.-improving significantly 7. Diabetes mellitus with uncontrolled blood sugars. 8. Anemia. 9. Leukocytosis. 10. cardiomyopathy-LVEF 35-40 by echo this admit Recc: -Tele -trend cardiac enzymes -Continue BB/CCB -continue asa/plavix -Continue statin -Follow volume status closely given low EF and consider initiation of lasix gentle diuresis -Continue abx's and f/u cx data -Continue current lovenox for now -will consider C now that patient upper respiratory sx have improved to asses significance of positive troponin given h/o stent Result Diagram: 12/01/18 0545 12/01/18 0545 Results 24hrs Laboratory Tests Test 12/02/18 17:08 12/02/18 20:35 12/03/18 02:04 12/03/18 07:49 Bedside Glucose 162 234 H 229 H 181 Test 12/03/18 12:01 Bedside Glucose 142 Consultation Date/Type/Reason Admit Date/Time Nov 26, 2018 at 18:46 Initial Consult Date 11/27/18 Type of Consult cardiology Reason for Consultation Nstemi Requesting Provider: GILDARDO QUINTEROS SERVICE CREW LEADER Exam/Review of Systems Vital Signs Vitals Vital Signs Date Temp Pulse Resp B/P (MAP) Pulse Ox O2 O2 Flow FiO2 Time Delivery Rate 12/03/18 66 12:00 12/03/18 97.7 19 125/57 95 11:36 (79) 12/02/18 Nasal 2.0 22:00 Cannula Intake and Output 12/02/18 12/02/18 12/03/18 1515:00 23:00 07:00 IntakeIntake Total 880 ml 300 ml BalanceBalance 880 ml 300 ml Exam Review of Systems: CONSTITUTIONAL: No fevers, chills. PULMONARY: mild sob/cough CARDIOVASCULAR: No chest pain/palpitations GASTROINTESTINAL: No nausea/vomiting. GENITOURINARY: No hematuria/dysuria. MUSCULOSKELETAL: No myagias/arthalgias. PSYCHIATRIC: The patient denies depression. NEUROLOGIC: No weakness Constitutional: alert Psych: no complaints Head: normocephalic ENMT: mucosa pink and moist Neck: supple, jvd (9 cm water) Respiratory: diminished breath sounds (at bases/B) Cardiovascular: regular rate and rhythm Gastrointestinal: soft, non-tender Musculoskeletal: muscle tone (normal) Extremities: edema (none) Neurological: other (No focal deficits) Medications Medications Current Medications Alendronate Sodium (Fosamax) 70 mg Mo@0725 PO Last administered on 11/30/18at 08:52; Admin Dose 70 MG; Start 11/30/18 at 07:25 Aspirin (Halfprin) 81 mg DAILY PO Last administered on 12/03/18 08:23; Admin Dose 81 MG; Start 11/27/18 at 09:00 Atorvastatin Calcium (Lipitor) 20 mg QHS PO Last administered on 12/02/18 20:37; Admin Dose 20 MG; Start 11/26/18 at 22:00 Ergocalciferol (Drisdol) 50,000 unit Q7D PO Last administered on 11/26/18at 23:11; Admin Dose 50,000 UNIT; Start 11/26/18 at 21:00 Ferrous Sulfate (Ferrous Sulfate (Ec)) 325 mg BID PO Last administered on 12/03/18 08:23; Admin Dose 325 MG; Start 11/26/18 at 21:00 Gabapentin (Neurontin) 600 mg TID PO Last administered on 12/03/18 12:34; Admin Dose 600 MG; Start 11/26/18 at 21:00 Diagnostic Test (Pha) (Accu-Chek) 1 ea 02 XX Last administered on 12/03/18 02:05; Admin Dose 1 EA; Start 11/27/18 at 02:00 IV Flush (NS 3 ml) 3 ml PER PROTOCOL IV ; Start 11/26/18 at 21:00 Ondansetron HCl (Zofran Inj) 4 mg Q6H PRN IV NAUSEA AND/OR VOMITING; Start 11/26/18 at 21:00 Nitroglycerin (Nitroglycerin (Sl Tab) 0.4 Mg) 1 tab Q5M PRN SL CHEST PAIN; Start 11/26/18 at 21:00 Acetaminophen (Tylenol Tab) 650 mg Q6H PRN PO PAIN LEVEL 1-3 OR FEVER; Start 11/26/18 at 21:00 Docusate Sodium (Colace) 100 mg Q12H PRN PO CONSTIPATION; Start 11/26/18 at 21:00 Bisacodyl (Dulcolax) 5 mg DAILY PRN PO CONSTIPATION; Start 11/26/18 at 21:00 Levalbuterol (Xopenex Neb) 1.25 mg Q4H RESP THERAPY PRN HHN WHEEZING AND SOB; Start 11/26/18 at 21:00 Miscellaneous Information 1 ea NOTE XX ; Start 11/26/18 at 22:00 Glucose (Glutose) 15 gm Q15M PRN PO DECREASED GLUCOSE; Start 11/26/18 at 22:00 Glucose (Glutose) 22.5 gm Q15M PRN PO DECREASED GLUCOSE; Start 11/26/18 at 22:00 Dextrose (D50w Syringe) 25 ml Q15M PRN IV DECREASED GLUCOSE; Start 11/26/18 at 22:00 Dextrose (D50w Syringe) 50 ml Q15M PRN IV DECREASED GLUCOSE; Start 11/26/18 at 22:00 Glucagon (Glucagen) 1 mg Q15M PRN IM DECREASED GLUCOSE; Start 11/26/18 at 22:00 Glucose (Glutose) 15 gm Q15M PRN BUCCAL DECREASED GLUCOSE; Start 11/26/18 at 22:00 Insulin Aspart (Novolog Insulin Pen) NOVOLOG *MODERATE* ALGORITHM WITH MEALS BEDTIME SC Last administered on 12/03/18 12:32; Admin Dose 2 UNIT; Start 11/27/18 at 07:55 Amlodipine Besylate (Norvasc) 10 mg DAILY PO Last administered on 12/03/18 08:22; Admin Dose 10 MG; Start 11/27/18 at 09:00 Pentoxifylline (Trental) 400 mg WITH MEALS PO Last administered on 12/03/18 12:34; Admin Dose 400 MG; Start 11/27/18 at 07:55 Metoprolol Succinate (Toprol Xl) 25 mg DAILY PO Last administered on 12/03/18 08:22; Admin Dose 25 MG; Start 11/28/18 at 09:00 Hydralazine HCl (Apresoline) 10 mg Q6H PRN IV SBP>160 Last administered on 11/28/18 12:23; Admin Dose 10 MG; Start 11/28/18 at 12:00 Saccharomyces Boulardii (Florastor) 250 mg BID PO Last administered on 12/03/18 08:23; Admin Dose 250 MG; Start 11/28/18 at 21:00 Benazepril HCl (Lotensin) 10 mg DAILY PO Last administered on 12/03/18 08:23; Admin Dose 10 MG; Start 11/29/18 at 09:00 Insulin Glargine (Lantus) 16 units DAILY SC Last administered on 12/03/18 08:02; Admin Dose 16 UNITS; Start 11/30/18 at 09:00 Enoxaparin Sodium (Lovenox) 40 mg DAILY SC Last administered on 12/03/18 08:29; Admin Dose 40 MG; Start 11/30/18 at 09:00 Clopidogrel Bisulfate (plaVIX) 75 mg DAILY PO Last administered on 12/03/18 08:22; Admin Dose 75 MG; Start 11/30/18 at 09:00 Levofloxacin (Levaquin) 500 mg DAILY@06 PO Last administered on 12/03/18 05:20; Admin Dose 500 MG; Start 12/01/18 at 06:00 Guaifenesin/ Dextromethorphan (Robitussin Dm Liquid Cup) 10 ml Q4H PRN PO COUGH; Start 11/30/18 at 16:30 Ipratropium [place] (Atrovent Hfa) 2 puff Q6H RESP THERAPY PRN INH SHORTNESS OF BREATH; Start 11/30/18 at 16:30 Famotidine (Pepcid) 20 mg DAILY PO Last administered on 12/03/18 08:23; Admin Dose 20 MG; Start 12/03/18 at 09:00 Furosemide (Lasix) 20 mg DAILY PO Last administered on 12/03/18 08:23; Admin Dose 20 MG; Start 12/03/18 at 09:00 LAZARO HECTOR Dec 03, 2018 13:11
--- NOTE | 2018-12-03 13:44 | PN ---
Date/Time of Note Date/Time of Note DATE: 12/03/18 TIME: 13:43 Assessment/Plan VTE Prophylaxis Risk score (from Ns)>0 risk: 4 SCD applied (from [facility] [place] No SCD contraindicated: low risk/ambulating Pharmacological prophylaxis: NA/contraindicated Pharm contraindication: surgical contra Lines/Catheters IV [facility] ([facility] Saline Lock Assessment/Plan Hospital Course Assessment plan 1. Hcap vs cap, stable finishing antibiotics. No influenza 2. Type II [place] stable observe patient for angiogram tomorrow if cardiac supervisor laboratory is open, otherwise we will schedule down the line. 3. Chronic coronary disease/LAD stent, stable cont medical mngmnt follow-up with cardiology 4. Chronic ischemic cardiomyopathy, EF 35 stable, start Lasix, start Lasix on beta-ayden/ACEi 5. Chronic dyslipidemia 6. PAD? 7. Dyslipidemia 8. Type 2 diabetes A1c 8.8 not at goal unfortunately 9. Past tobacco 10. COPD? 11. Subclinical hyperthyroidism? 12. Atypical chest pain likely related pneumonia 13. Iron deficiency anemia S: 11/30 cough chest pain improved no fever. 12/01: No distress. Less cough 12/02: No events no distress 12/03: No events. Occasional cough O: Vss sr PE No pallor JVD Regular no mrg Clear no tachypnea Bs+ nt nd no r/rg No edema/Homans Result Diagram: 12/01/18 0545 12/01/18 0545 Results 24hrs Laboratory Tests Test 12/02/18 17:08 12/02/18 20:35 12/03/18 02:04 12/03/18 07:49 Bedside Glucose 162 234 H 229 H 181 Test 12/03/18 12:01 Bedside Glucose 142 Exam/Review of Systems Vital Signs Vitals Vital Signs Date Temp Pulse Resp B/P (MAP) Pulse Ox O2 O2 Flow FiO2 Time Delivery Rate 12/03/18 66 12:00 12/03/18 97.7 19 125/57 95 11:36 (79) 12/02/18 Nasal 2.0 22:00 Cannula Intake and Output 12/02/18 12/02/18 12/03/18 1515:00 23:00 07:00 IntakeIntake Total 880 ml 300 ml BalanceBalance 880 ml 300 ml Medications Medications Current Medications Alendronate Sodium (Fosamax) 70 mg Mo@0725 PO Last administered on 11/30/18at 08:52; Admin Dose 70 MG; Start 11/30/18 at 07:25 Aspirin (Halfprin) 81 mg DAILY PO Last administered on 12/03/18 08:23; Admin Dose 81 MG; Start 11/27/18 at 09:00 Atorvastatin Calcium (Lipitor) 20 mg QHS PO Last administered on 12/02/18 20:37; Admin Dose 20 MG; Start 11/26/18 at 22:00 Ergocalciferol (Drisdol) 50,000 unit Q7D PO Last administered on 11/26/18 23:11; Admin Dose 50,000 UNIT; Start 11/26/18 at 21:00 Ferrous Sulfate (Ferrous Sulfate (Ec)) 325 mg BID PO Last administered on 12/03/18 08:23; Admin Dose 325 MG; Start 11/26/18 at 21:00 Gabapentin (Neurontin) 600 mg TID PO Last administered on 12/03/18 12:34; Admin Dose 600 MG; Start 11/26/18 at 21:00 Diagnostic Test (Pha) (Accu-Chek) 1 ea 02 XX Last administered on 12/03/18 02:05; Admin Dose 1 EA; Start 11/27/18 at 02:00 IV Flush (NS 3 ml) 3 ml PER PROTOCOL IV ; Start 11/26/18 at 21:00 Ondansetron HCl (Zofran Inj) 4 mg Q6H PRN IV NAUSEA AND/OR VOMITING; Start 11/26/18 at 21:00 Nitroglycerin (Nitroglycerin (Sl Tab) 0.4 Mg) 1 tab Q5M PRN SL CHEST PAIN; Start 11/26/18 at 21:00 Acetaminophen (Tylenol Tab) 650 mg Q6H PRN PO PAIN LEVEL 1-3 OR FEVER; Start 11/26/18 at 21:00 Docusate Sodium (Colace) 100 mg Q12H PRN PO CONSTIPATION; Start 11/26/18 at 21:00 Bisacodyl (Dulcolax) 5 mg DAILY PRN PO CONSTIPATION; Start 11/26/18 at 21:00 Levalbuterol (Xopenex Neb) 1.25 mg Q4H RESP THERAPY PRN HHN WHEEZING AND SOB; Start 11/26/18 at 21:00 Miscellaneous Information 1 ea NOTE XX ; Start 11/26/18 at 22:00 Glucose (Glutose) 15 gm Q15M PRN PO DECREASED GLUCOSE; Start 11/26/18 at 22:00 Glucose (Glutose) 22.5 gm Q15M PRN PO DECREASED GLUCOSE; Start 11/26/18 at 22:00 Dextrose (D50w Syringe) 25 ml Q15M PRN IV DECREASED GLUCOSE; Start 11/26/18 at 22:00 Dextrose (D50w Syringe) 50 ml Q15M PRN IV DECREASED GLUCOSE; Start 11/26/18 at 22:00 Glucagon (Glucagen) 1 mg Q15M PRN IM DECREASED GLUCOSE; Start 11/26/18 at 22:00 Glucose (Glutose) 15 gm Q15M PRN BUCCAL DECREASED GLUCOSE; Start 11/26/18 at 2 2:00 Insulin Aspart (Novolog Insulin Pen) NOVOLOG *MODERATE* ALGORITHM WITH MEALS BEDTIME SC Last administered on 12/03/18 12:32; Admin Dose 2 UNIT; Start 11/27/18 at 07:55 Amlodipine Besylate (Norvasc) 10 mg DAILY PO Last administered on 12/03/18 08:22; Admin Dose 10 MG; Start 11/27/18 at 09:00 Pentoxifylline (Trental) 400 mg WITH MEALS PO Last administered on 12/03/18 12:34; Admin Dose 400 MG; Start 11/27/18 at 07:55 Metoprolol Succinate (Toprol Xl) 25 mg DAILY PO Last administered on 12/03/18 08:22; Admin Dose 25 MG; Start 11/28/18 at 09:00 Hydralazine HCl (Apresoline) 10 mg Q6H PRN IV SBP>160 Last administered on 11/28/18at 12:23; Admin Dose 10 MG; Start 11/28/18 at 12:00 Saccharomyces Boulardii (Florastor) 250 mg BID PO Last administered on 12/03/18 08:23; Admin Dose 250 MG; Start 11/28/18 at 21:00 Benazepril HCl (Lotensin) 10 mg DAILY PO Last administered on 12/03/18 08:23; Admin Dose 10 MG; Start 11/29/18 at 09:00 Insulin Glargine (Lantus) 16 units DAILY SC Last administered on 12/03/18 08:02; Admin Dose 16 UNITS; Start 11/30/18 at 09:00 Enoxaparin Sodium (Lovenox) 40 mg DAILY SC Last administered on 12/03/18 08:29; Admin Dose 40 MG; Start 11/30/18 at 09:00; Status Hold Clopidogrel Bisulfate (plaVIX) 75 mg DAILY PO Last administered on 12/03/18 08:22; Admin Dose 75 MG; Start 11/30/18 at 09:00 Levofloxacin (Levaquin) 500 mg DAILY@06 PO Last administered on 12/03/18 05:20; Admin Dose 500 MG; Start 12/01/18 at 06:00 Guaifenesin/ Dextromethorphan (Robitussin Dm Liquid Cup) 10 ml Q4H PRN PO COUGH; Start 11/30/18 at 16:30 Ipratropium [place] (Atrovent Hfa) 2 puff Q6H RESP THERAPY PRN INH SHORTNESS OF BREATH; Start 11/30/18 at 16:30 Famotidine (Pepcid) 20 mg DAILY PO Last administered on 12/03/18 08:23; Admin Dose 20 MG; Start 12/03/18 at 09:00 Furosemide (Lasix) 20 mg DAILY PO Last administered on 12/03/18 08:23; Admin Dose 20 MG; Start 12/03/18 at 09:00 Diazepam (Valium) 5 mg OC ONCE PO ; Start 12/04/18 at 08:00; Stop 12/04/18 at 08:01 Diphenhydramine HCl (Benadryl) 50 mg OC ONCE PO ; Start 12/04/18 at 08:00; Stop 12/04/18 at 08:01 GAVIN BROCK MD Dec 03, 2018 13:44
--- NOTE | 2018-12-03 16:45 | NUR ---
RN NOTES PT. SIGNED CONSENT FOR [facility]KA PROCEDURE.
--- NOTE | 2018-12-03 18:47 | NUR ---
EOSS PT. IS ALERT AND ORIENTED ABLE TO MAKE NEEDS KNOWN. S/E BY DR. HECTOR TODAY FOR LT HEART CATH CH[facility]RIKA. NPO POST MIDNIGHT EXCEPT MEDS. CONSENT IS ALREADY SIGNED. WILL ENDORSED TO NEXT SHIFT FOR FURTHER CARE3.
[2018-12-03] MEDS: ERGOCALCIFEROL 50,000 UNIT CAP PO SCH (20:39)
[2018-12-03] MEDS: ATORVASTATIN 20 MG TAB PO SCH (20:39)
[2018-12-04] VITALS (20 sets, daily range): BP systolic 105–147; BP diastolic 58–83; PULSE 64–99; RESP 16–20
[2018-12-04] MEDS: ACCU-CHEK XX SCH (01:48)
[2018-12-04] MEDS: LEVOFLOXACIN 500 MG TAB PO SCH (05:24)
[2018-12-04] MEDS ORDERED: DEXTROSE 5%-0.45% NACL 1,000 ML IV SCH (07:00)
--- NOTE | 2018-12-04 07:04 | NUR ---
RN END OF SHIFT NOTE PATIENT ALERT AND ORIENTED X 4, DENIED PAIN, SLEPT WELL LAST NIGHT, AND PATIENT ABLE TO MAKE HIS NEED KNOWN. PATIENT CLEANED AND BED LINENS CHANGED. PATIENT IS FOR LEFT HEAT CATH TODAY. BED IN THE LOWEST POSITION WITH BRAKES ENGAGED, HOURLY ROUNDING AND BED ALARM IN PLACE. WILL ENDORSE TO THE DAY SHIFT RN.
[2018-12-04] MEDS: INSULIN ASPART [NOVOLOG] 3 ML PEN SC SCH ×4 (07:51→21:00)
[2018-12-04] MEDS ORDERED: DIPHENHYDRAMINE 50 MG CAP PO ONE (08:00)
[2018-12-04] MEDS ORDERED: DIAZEPAM 5 MG TAB PO ONE (08:00)
[2018-12-04] MEDS: BENAZEPRIL 10 MG TAB PO SCH (08:14)
[2018-12-04] MEDS: PENTOXIFYLLINE (SR) 400 MG TAB PO SCH ×3 (08:14→17:22)
[2018-12-04] MEDS: GABAPENTIN 300 MG CAP PO SCH ×3 (08:14→21:00)
[2018-12-04] MEDS: SACCHAROMYCES BOULARDII 250 MG CAP PO SCH ×2 (08:14→20:59)
[2018-12-04] MEDS: METOPROLOL (XL) 25 MG TAB PO SCH (08:14)
[2018-12-04] MEDS: AMLODIPINE 10 MG TAB PO SCH (08:15)
[2018-12-04] MEDS: FAMOTIDINE 20 MG TAB PO SCH (08:15)
[2018-12-04] MEDS: FUROSEMIDE 20 MG TAB PO SCH (08:15)
[2018-12-04] MEDS: FERROUS SULFATE (EC) 325 MG TAB PO SCH ×2 (08:15→20:59)
[2018-12-04] MEDS: INSULIN GLARGINE [LANTus] (100 UNITS/ML) SYG SC SCH (08:18)
--- NOTE | 2018-12-04 09:39 | NUR ---
PT NOTE [facility] Patient: Brad Hernandez : 1950 Age/Sex: 68/M Unit#: [id number] Room/Bed: [facility]/A User: Salima Golden PTA Date: 12/04/18 09:39 Type: PT Technical Record Therapy day number 3 Subjective Denies pain Pain Scale NUMERIC Pain Intensity 0 (0-10) Patient Stated Goal for Pain Relief 0 (0-10) Pain Level Comment denied pain Transfer Training Start Time 09:15 Supine to Sit Supervised Transfer Sit to Stand Ability Stand by Assist Bed Mobility Sit to Supine Supervised Additional Mobility Comments use of bed rails, HOB elevated Transfer Training End Time 09:25 Total Transfer Training Time 10 min (8-127) Gait Training Start Time 09:25 Gait Assist Levels Stand by Assist Assistive Devices 4 Wheel Walker Ambulation Distance 80 feet Additional Gait Comments slow isauro, dec step length/stride, WBOS Gait Training End Time 09:39 Total Gait Training Treatment Time 14 min (8-127) Weight Bearing Assessment Label Bilat Lower Extremity Weight Bearing Status Full Weight Bearing Static Sitting Balance Good Dynamic Sitting Balance Good Standing Static Balance Fair plus Dynamic Standing Balance Fair Additional Balance Assessments Comments 4WW Safety Judgement Fair Activity Tolerance Fair Equipment Present IV pump Post Treatment Pain Intensity 0 0-10 Total Treament Time 24 min (8-127) Total Minutes 24 Total Units 2 PT Technical Record Comment S: JANNETH Linton cleared pt for PT. Pt denied pain and agreeable to tx O: Received pt sleeping in semifowler. See above for assist levels. Gait training w/ FWW x 80' and presented with slow isauro, decreased step length/stride, and WBOS. Instructed pt on proper gait sequencing, fair return. Returned pt back to room/bed. Positioned pt to comfort in semifowler. Call light/phone within reach. Bed alarm on. Needs met. A: Fair tolerance to tx. Reduced gait distance due to fatigue P: Per RN, pt is having a procedure for L heart cath. Spoke w/ [facility] and will d/c pt from PT. Will need a new order to resume PT services. Informed RN.
[2018-12-04] MEDS: ASPIRIN (EC) 81 MG TAB PO SCH (10:47)
[2018-12-04] MEDS: CLOPIDOGREL 75 MG TAB PO SCH (10:47)
--- NOTE | 2018-12-04 13:11 | PN ---
Date/Time of Note Date/Time of Note DATE: 12/04/18 TIME: 13:10 Assessment/Plan VTE Prophylaxis Risk score (from [facility] [place])>0 risk: 3 SCD applied (from [facility] [place]): No SCD contraindicated: low risk/ambulating Pharmacological prophylaxis: NA/contraindicated Pharm contraindication: surgical contra Lines/Catheters IV Catheter Type (from [facility]): Saline Lock Assessment/Plan Hospital Course Assessment plan 1. Hcap vs cap, stable finishing antibiotics. No influenza 2. Type II [place] stable observe patient for angiogram today. 3. Chronic coronary disease/LAD stent, stable cont medical mngmnt follow-up with cardiology 4. Chronic ischemic cardiomyopathy, EF 35 stable, start Lasix, start Lasix on beta-ayden/ACEi 5. Chronic dyslipidemia 6. PAD? 7. Dyslipidemia 8. Type 2 diabetes A1c 8.8 not at goal unfortunately 9. Past tobacco 10. COPD? 11. Subclinical hyperthyroidism? 12. Atypical chest pain likely related pneumonia 13. Iron deficiency anemia S: 11/30 cough chest pain improved no fever. 12/01: No distress. Less cough /: No events no distress 12/03: No events. Occasional cough 12/04: No events O: Vss PE -Deferred patient in cardiac cath tech Result Diagram: 12/04/18 0614 12/04/18 0614 Results 24hrs Laboratory Tests Test 12/03/18 17:01 12/03/18 20:38 12/04/18 01:45 12/04/18 06:14 Bedside Glucose 208 211 198 White Blood Count 7.5 # Red Blood Count 3.27 L Hemoglobin 10.2 L Hematocrit 30.2 L Mean Corpuscular 92.4 Volume Mean Corpuscular 31.2 Hemoglobin Mean Corpuscular 33.8 Hemoglobin Concent Red Cell 12.6 Distribution Width Platelet Count 366 # Mean Platelet 9.7 Volume Immature 3.500 H Granulocytes % Neutrophils % 49.8 Lymphocytes % 31.8 Monocytes % 10.4 Eosinophils % 4.0 Basophils % 0.5 Nucleated Red 0.0 Blood Cells % Immature 0.260 H Granulocytes # Neutrophils # 3.7 Lymphocytes # 2.4 Monocytes # 0.8 Eosinophils # 0.3 Basophils # 0.0 Nucleated Red 0.0 Blood Cells # Prothrombin Time 12.7 Prothrombin Time 1.0 Ratio INR International 0.94 Normalized Ratio Activated 33.[address] Time Sodium Level 142 Potassium Level 4.8 Chloride Level 101 Carbon Dioxide 35 H Level Anion Gap 6 Blood Urea 25 H Nitrogen Creatinine 0.96 Est Glomerular > 60 Filtrat Rate mL/min Glucose Level 169 Calcium Level 9.3 Test 12/04/18 07:50 12/04/18 10:34 12/04/18 10:57 Bedside Glucose 168 Lab Scanned Report REFERENCE LAB REFERENCE LAB Exam/Review of Systems Vital Signs Vitals Vital Signs Date Temp Pulse Resp B/P (MAP) Pulse Ox O2 O2 Flow FiO2 Time Delivery Rate 12/04/18 64 08:15 12/04/18 98.0 18 119/62 95 Room Air 07:13 (81) 12/02/18 2.0 22:00 Intake and Output 12/03/18 12/03/18 12/04/18 1515:00 23:00 07:00 IntakeIntake Total 900 ml 300 ml BalanceBalance 900 ml 300 ml Medications Medications Current Medications Alendronate Sodium (Fosamax) 70 mg Mo@0725 PO Last administered on 11/30/18 08:52; Admin Dose 70 MG; Start 11/30/18 at 07:25 Aspirin (Halfprin) 81 mg DAILY PO Last administered on 12/04/18 10:47; Admin Dose 81 MG; Start 11/27/18 at 09:00 Atorvastatin Calcium (Lipitor) 20 mg QHS PO Last administered on 12/03/18 20:39; Admin Dose 20 MG; Start 11/26/18 at 22:00 Ergocalciferol (Drisdol) 50,000 unit Q7D PO Last administered on 12/03/18 20:39; Admin Dose 50,000 UNIT; Start 11/26/18 at 21:00 Ferrous Sulfate (Ferrous Sulfate (Ec)) 325 mg BID PO Last administered on 12/04/18 08:15; Admin Dose 325 MG; Start 11/26/18 at 21:00 Gabapentin (Neurontin) 600 mg TID PO Last administered on 12/04/18 08:14; Admin Dose 600 MG; Start 11/26/18 at 21:00 Diagnostic Test (Pha) (Accu-Chek) 1 ea 02 XX Last administered on 12/04/18 01:48; Admin Dose 1 EA; Start 11/27/18 at 02:00 IV Flush (NS 3 ml) 3 ml PER PROTOCOL IV ; Start 11/26/18 at 21:00 Ondansetron HCl (Zofran Inj) 4 mg Q6H PRN IV NAUSEA AND/OR VOMITING; Start 11/26/18 at 21:00 Nitroglycerin (Nitroglycerin (Sl Tab) 0.4 Mg) 1 tab Q5M PRN SL CHEST PAIN; Start 11/26/18 at 21:00 Acetaminophen (Tylenol Tab) 650 mg Q6H PRN PO PAIN LEVEL 1-3 OR FEVER; Start 11/26/18 at 21:00 Docusate Sodium (Colace) 100 mg Q12H PRN PO CONSTIPATION; Start 11/26/18 at 21:00 Bisacodyl (Dulcolax) 5 mg DAILY PRN PO CONSTIPATION; Start 11/26/18 at 21:00 Levalbuterol (Xopenex Neb) 1.25 mg Q4H RESP THERAPY PRN HHN WHEEZING AND SOB; Start 11/26/18 at 21:00 Miscellaneous Information 1 ea NOTE XX ; Start 11/26/18 at 22:00 Glucose (Glutose) 15 gm Q15M PRN PO DECREASED GLUCOSE; Start 11/26/18 at 22:00 Glucose (Glutose) 22.5 gm Q15M PRN PO DECREASED GLUCOSE; Start 11/26/18 at 22:00 Dextrose (D50w Syringe) 25 ml Q15M PRN IV DECREASED GLUCOSE; Start 11/26/18 at 22:00 Dextrose (D50w Syringe) 50 ml Q15M PRN IV DECREASED GLUCOSE; Start 11/26/18 at 22:00 Glucagon (Glucagen) 1 mg Q15M PRN IM DECREASED GLUCOSE; Start 11/26/18 at 22:00 Glucose (Glutose) 15 gm Q15M PRN BUCCAL DECREASED GLUCOSE; Start 11/26/18 at 22:00 Insulin Aspart (Novolog Insulin Pen) NOVOLOG *MODERATE* ALGORITHM WITH MEALS BEDTIME SC Last administered on 12/03/18at 20:50; Admin Dose 1 UNIT; Start 11/27/18 at 07:55 Amlodipine Besylate (Norvasc) 10 mg DAILY PO Last administered on 12/04/18at 08:15; Admin Dose 10 MG; Start 11/27/18 at 09:00 Pentoxifylline (Trental) 400 mg WITH MEALS PO Last administered on 12/04/18 08:14; Admin Dose 400 MG; Start 11/27/18 at 07:55 Metoprolol Succinate (Toprol Xl) 25 mg DAILY PO Last administered on 12/04/18 08:14; Admin Dose 25 MG; Start 11/28/18 at 09:00 Hydralazine HCl (Apresoline) 10 mg Q6H PRN IV SBP>160 Last administered on 11/28/18at 12:23; Admin Dose 10 MG; Start 11/28/18 at 12:00 Saccharomyces Boulardii (Florastor) 250 mg BID PO Last administered on 12/04/18 08:14; Admin Dose 250 MG; Start 11/28/18 at 21:00 Benazepril HCl (Lotensin) 10 mg DAILY PO Last administered on 12/04/18 08:14; Admin Dose 10 MG; Start 11/29/18 at 09:00 Insulin Glargine (Lantus) 16 units DAILY SC Last administered on 12/04/18 08:18; Admin Dose 16 UNITS; Start 11/30/18 at 09:00 Enoxaparin Sodium (Lovenox) 40 mg DAILY SC Last administered on 12/03/18 08:29; Admin Dose 40 MG; Start 11/30/18 at 09:00; Status Hold Clopidogrel Bisulfate (plaVIX) 75 mg DAILY PO Last administered on 12/04/18 10:47; Admin Dose 75 MG; Start 11/30/18 at 09:00 Levofloxacin (Levaquin) 500 mg DAILY@06 PO Last administered on 12/04/18 05:24; Admin Dose 500 MG; Start 12/01/18 at 06:00 Guaifenesin/ Dextromethorphan (Robitussin Dm Liquid Cup) 10 ml Q4H PRN PO COUGH; Start 11/30/18 at 16:30 Ipratropium [place] (Atrovent Hfa) 2 puff Q6H RESP THERAPY PRN INH SHORTNESS OF BREATH; Start 11/30/18 at 16:30 Famotidine (Pepcid) 20 mg DAILY PO Last administered on 12/04/18 08:15; Admin D ose 20 MG; Start 12/03/18 at 09:00 Furosemide (Lasix) 20 mg DAILY PO Last administered on 1/4/19at 08:15; Admin Dose 20 MG; Start 12/03/18 at 09:00 Dextrose/Sodium Chloride 1,000 ml @ 75 mls/hr [id number] IV Last administered on 12/04/18at 07:09; Admin Dose 75 MLS/HR; Start 12/04/18 at 07:00 GAVIN BROCK MD Dec 04, 2018 13:11
[2018-12-04] MEDS ORDERED: MIDAZOLAM 1 MG/ML 2 ML INJ ONE (13:38)
[2018-12-04] MEDS ORDERED: VERAPAMIL 5 MG INJ ONE (13:38)
[2018-12-04] MEDS ORDERED: NITROGLYCERIN (IC) 100 MCG/ML INJ ONE ×2 (13:38→15:12)
[2018-12-04] MEDS ORDERED: HEPARIN 1000 UNITS/NS (A-LINE) 1,000 ML ONE (13:38)
[2018-12-04] MEDS ORDERED: IODIXANOL LOCM 100 ML BTL ONE (13:38)
[2018-12-04] MEDS ORDERED: FENTAnyl 50 MCG/ML VIAL ONE (13:38)
[2018-12-04] MEDS ORDERED: HEPARIN 1000 UNITS/ML 10 ML INJ ONE (13:38)
[2018-12-04] MEDS ORDERED: LIDOCAINE 1% (MDV) 20 ML INJ ONE (13:39)
[2018-12-04] MEDS ORDERED: CLOPIDOGREL 300 MG TAB ONE (15:39)
--- NOTE | 2018-12-04 15:52 | SIPON ---
Date/Time of Note Date/Time of Note DATE: 12/04/18 TIME: 15:50 Operative Report Preoperative Diagnosis 1.Nstemi Postoperative Diagnosis 1.obstructive cad s/p stent x 1 to LAD and x 1 to LCX both ostial Operation/Procedure Performed 1.[facility] 2.PTCA/stent x 1 to LAD, x 1 to LCX with SHAREE Surgeon see signature line assistant distribution manager 1.David Anesthesia: moderate sedation Estimated blood loss: minimal Transfusion Required none Specimen none Grafts/Implants none Complications none LAZARO HECTOR Dec 04, 2018 15:52
--- NOTE | 2018-12-04 15:55 | CONS ---
Date/Time of Note Date/Time of Note DATE: 12/04/18 TIME: 15:52 Assessment/Plan Assessment/Plan Hospital Course IMPRESSION: 1. Non-ST elevation myocardial infarction in the setting of upper respiratory infection, likely type 2 demand infarct with known coronary artery disease.- downtrending cardiac enzymes. Now s/p stent x 1 to LAD prox with SHAREE and x 1 to LCX x 1 with SHAREE 2. Chest pain could be due to patient's [id number] myocardial infarction which he had, but also in the setting of cough. 3. Abnormal electrocardiogram with lateral T-wave inversions. 4. Hypertension. 5. Dyslipidemia.-LDL 72 HDL 47 6. Upper respiratory infection. Negative flu swabs.-improving significantly 7. Diabetes mellitus with uncontrolled blood sugars. 8. Anemia. 9. Leukocytosis. 10. cardiomyopathy-LVEF 35-40 by echo this admit Recc: -Tele -trend cardiac enzymes -Continue BB/CCB -continue asa/plavix -Continue statin -Follow volume status closely given low EF and consider initiation of lasix gentle diuresis -Continue abx's and f/u cx data Result Diagram: 12/04/18 0614 12/04/1814 Results 24hrs Laboratory Tests Test 12/03/18 17:01 12/03/18 20:38 12/04/18 01:45 12/04/18 06:14 Bedside Glucose 208 211 198 White Blood Count 7.5 # Red Blood Count 3.27 L Hemoglobin 10.2 L Hematocrit 30.2 L Mean Corpuscular 92.4 Volume Mean Corpuscular 31.2 Hemoglobin Mean Corpuscular 33.8 Hemoglobin Concent Red Cell 12.6 Distribution Width Platelet Count 366 # Mean Platelet 9.7 Volume Immature 3.500 H Granulocytes % Neutrophils % 49.8 Lymphocytes % 31.8 Monocytes % 10.4 Eosinophils % 4.0 Basophils % 0.5 Nucleated Red 0.0 Blood Cells % Immature 0.260 H Granulocytes # Neutrophils # 3.7 Lymphocytes # 2.4 Monocytes # 0.8 Eosinophils # 0.3 Basophils # 0.0 Nucleated Red 0.0 Blood Cells # Prothrombin Time 12.7 Prothrombin Time 1.0 Ratio INR International 0.94 Normalized Ratio Activated 33.[address] Time Sodium Level 142 Potassium Level 4.8 Chloride Level 101 Carbon Dioxide 35 H Level Anion Gap 6 Blood Urea 25 H Nitrogen Creatinine 0.96 Est Glomerular > 60 Filtrat Rate mL/min Glucose Level 169 Calcium Level 9.3 Test 12/04/18 07:50 12/04/18 10:34 12/04/18 10:57 Bedside Glucose 168 Lab Scanned Report REFERENCE LAB REFERENCE LAB Consultation Date/Type/Reason Admit Date/Time Nov 26, 2018 at 18:46 Initial Consult Date 11/27/18 Type of Consult cardiology Reason for Consultation Nstemi Requesting Provider: GILDARDO QUINTEROS SCOOP FILLER Exam/Review of Systems Vital Signs Vitals Vital Signs Date Temp Pulse Resp B/P (MAP) Pulse Ox O2 O2 Flow FiO2 Time Delivery Rate 12/04/18 64 08:15 12/04/18 98.0 18 119/62 95 Room Air 07:13 (81) 12/02/18 2.0 22:00 Intake and Output 12/03/18 12/03/18 12/04/18 1515:00 23:00 07:00 IntakeIntake Total 900 ml 300 ml BalanceBalance 900 ml 300 ml Exam Review of Systems: CONSTITUTIONAL: No fevers, chills. PULMONARY: No sob CARDIOVASCULAR: No chest pain/palpitations GASTROINTESTINAL: No nausea/vomiting. GENITOURINARY: No hematuria/dysuria. MUSCULOSKELETAL: No myagias/arthalgias. PSYCHIATRIC: The patient denies depression. NEUROLOGIC: No weakness Constitutional: alert Psych: no complaints Head: normocephalic ENMT: mucosa pink and moist Neck: supple, jvd (9 cm water) Respiratory: diminished breath sounds Cardiovascular: regular rate and rhythm Gastrointestinal: soft, non-tender Musculoskeletal: muscle tone (normal) Extremities: edema (none) Neurological: other (No focal deficits) Medications Medications Current Medications Alendronate Sodium (Fosamax) 70 mg Mo@0725 PO Last administered on 11/30/18at 08:52; Admin Dose 70 MG; Start 11/30/18 at 07:25 Aspirin (Halfprin) 81 mg DAILY PO Last administered on 12/04/18at 10:47; Admin Dose 81 MG; Start 11/27/18 at 09:00 Atorvastatin Calcium (Lipitor) 20 mg QHS PO Last administered on 12/03/18at 20:39; Admin Dose 20 MG; Start 11/26/18 at 22:00 Ergocalciferol (Drisdol) 50,000 unit Q7D PO Last administered on 12/03/18 20:39; Admin Dose 50,000 UNIT; Start 11/26/18 at 21:00 Ferrous Sulfate (Ferrous Sulfate (Ec)) 325 mg BID PO Last administered on 12/04/18 08:15; Admin Dose 325 MG; Start 11/26/18 at 21:00 Gabapentin (Neurontin) 600 mg TID PO Last administered on 12/04/18 08:14; Admin Dose 600 MG; Start 11/26/18 at 21:00 Diagnostic Test (Pha) (Accu-Chek) 1 ea 02 XX Last administered on 12/04/18 01:48; Admin Dose 1 EA; Start 11/27/18 at 02:00 IV Flush (NS 3 ml) 3 ml PER PROTOCOL IV ; Start 11/26/18 at 21:00 Ondansetron HCl (Zofran Inj) 4 mg Q6H PRN IV NAUSEA AND/OR VOMITING; Start 11/26/18 at 21:00 Nitroglycerin (Nitroglycerin (Sl Tab) 0.4 Mg) 1 tab Q5M PRN SL CHEST PAIN; Start 11/26/18 at 21:00 Acetaminophen (Tylenol Tab) 650 mg Q6H PRN PO PAIN LEVEL 1-3 OR FEVER; Start 11/26/18 at 21:00 Docusate Sodium (Colace) 100 mg Q12H PRN PO CONSTIPATION; Start 11/26/18 at 21:00 Bisacodyl (Dulcolax) 5 mg DAILY PRN PO CONSTIPATION; Start 11/26/18 at 21:00 Levalbuterol (Xopenex Neb) 1.25 mg Q4H RESP THERAPY PRN HHN WHEEZING AND SOB; Start 11/26/18 at 21:00 Miscellaneous Information 1 ea NOTE XX ; Start 11/26/18 at 22:00 Glucose (Glutose) 15 gm Q15M PRN PO DECREASED GLUCOSE; Start 11/26/18 at 22:00 Glucose (Glutose) 22.5 gm Q15M PRN PO DECREASED GLUCOSE; Start 11/26/18 at 22:00 Dextrose (D50w Syringe) 25 ml Q15M PRN IV DECREASED GLUCOSE; Start 11/26/18 at 22:00 Dextrose (D50w Syringe) 50 ml Q15M PRN IV DECREASED GLUCOSE; Start 11/26/18 at 22:00 Glucagon (Glucagen) 1 mg Q15M PRN IM DECREASED GLUCOSE; Start 11/26/18 at 22:00 Glucose (Glutose) 15 gm Q15M PRN BUCCAL DECREASED GLUCOSE; Start 11/26/18 at 22:00 Insulin Aspart (Novolog Insulin Pen) NOVOLOG *MODERATE* ALGORITHM WITH MEALS BEDTIME SC Last administered on 12/03/18 20:50; Admin Dose 1 UNIT; Start 11/27/18 at 07:55 Amlodipine Besylate (Norvasc) 10 mg DAILY PO Last administered on 12/04/18 08:15; Admin Dose 10 MG; Start 11/27/18 at 09:00 Pentoxifylline (Trental) 400 mg WITH MEALS PO Last administered on 12/04/18 08:14; Admin Dose 400 MG; Start 11/27/18 at 07:55 Metoprolol Succinate (Toprol Xl) 25 mg DAILY PO Last administered on 12/04/18 08:14; Admin Dose 25 MG; Start 11/28/18 at 09:00 Hydralazine HCl (Apresoline) 10 mg Q6H PRN IV SBP>160 Last administered on 11/28/18at 12:23; Admin Dose 10 MG; Start 11/28/18 at 12:00 Saccharomyces Boulardii (Florastor) 250 mg BID PO Last administered on 12/04/18 08:14; Admin Dose 250 MG; Start 11/28/18 at 21:00 Benazepril HCl (Lotensin) 10 mg DAILY PO Last administered on 12/04/18 08:14; Admin Dose 10 MG; Start 11/29/18 at 09:00 Insulin Glargine (Lantus) 16 units DAILY SC Last administered on 12/04/18 08:18; Admin Dose 16 UNITS; Start 11/30/18 at 09:00 Enoxaparin Sodium (Lovenox) 40 mg DAILY SC Last administered on 12/03/18 08:29; Admin Dose 40 MG; Start 11/30/18 at 09:00; Status Hold Clopidogrel Bisulfate (plaVIX) 75 mg DAILY PO Last administered on 12/04/18 1 0:47; Admin Dose 75 MG; Start 11/30/18 at 09:00 Levofloxacin (Levaquin) 500 mg DAILY@06 PO Last administered on 12/04/18at 05:24; Admin Dose 500 MG; Start 12/01/18 at 06:00 Guaifenesin/ Dextromethorphan (Robitussin Dm Liquid Cup) 10 ml Q4H PRN PO COUGH; Start 11/30/18 at 16:30 Ipratropium [place] (Atrovent Hfa) 2 puff Q6H RESP THERAPY PRN INH SHORTNESS OF BREATH; Start 11/30/18 at 16:30 Famotidine (Pepcid) 20 mg DAILY PO Last administered on 12/04/18at 08:15; Admin Dose 20 MG; Start 12/03/18 at 09:00 Furosemide (Lasix) 20 mg DAILY PO Last administered on 12/04/18at 08:15; Admin Dose 20 MG; Start 12/03/18 at 09:00 Dextrose/Sodium Chloride 1,000 ml @ 75 mls/hr [id number] IV Last administered on 12/04/18at 07:09; Admin Dose 75 MLS/HR; Start 12/04/18 at 07:00 LAZARO HECTOR Dec 04, 2018 15:55
[2018-12-04] MEDS ORDERED: ONDANSETRON 4 MG INJ IV PRN (16:00)
[2018-12-04] MEDS ORDERED: OXYCODONE/ACETAMINOPHEN (5/325) TAB PO PRN (16:00)
[2018-12-04] MEDS ORDERED: morphine SULFATE/PF (2 MG/2 ML) SYG IV PRN (16:00)
[2018-12-04] MEDS ORDERED: ACETAMINOPHEN 325 MG TAB PO PRN (16:00)
[2018-12-04] MEDS ORDERED: SOD CHLORIDE 0.9% 1,000 ML IV SCH (16:00)
[2018-12-04] MEDS ORDERED: ZOLPIDEM 5 MG TAB PO PRN (16:00)
[2018-12-04] MEDS ORDERED: AL HYDROX/MG HYDROX/SIMETH 30 ML CUP PO PRN (16:00)
[2018-12-04] MEDS: ATORVASTATIN 20 MG TAB PO SCH (20:59)
[2018-12-05] VITALS (10 sets, daily range): BP systolic 90–98; BP diastolic 50–56; PULSE 66–100; RESP 18–29
--- NOTE | 2018-12-05 00:48 | CARRPT ---
DATE OF PROCEDURE: 12/04/2018 PROCEDURES: 1. Left heart catheterization. 2. Coronary angiography. 3. Intravascular ultrasound, left main. 4. Percutaneous transluminal coronary angioplasty with placement of Xience drug-eluting stent x1 to LAD 3.0 x 18 mm. 5. Percutaneous transluminal coronary angioplasty with placement of Synergy drug-eluting stent x1 to ostial proximal circumflex 2.5 x 16 mm. 6. Moderate conscious sedation. 7. Measurement of left ventricular end-diastolic pressure. ATTENDING PHYSICIAN: Lazaro Herbert MD REFERRING PHYSICIAN: Roger Brock MD from the hospitalist service. INDICATION: Non-ST elevation myocardial infarction. TYPE OF ANESTHESIA: Conscious and local. BRIEF HISTORY AND HOSPITAL COURSE: Mr. Hernandez is a 68-year-old male with history of hypertensi on, dyslipidemia, and diabetes mellitus who initially presented with upper respiratory infection in t his setting ruled in for [id number] myocardial infarction. The patient was placed on ascending medical therapy and had improvement from his upper respiratory infections. He has been brought to [facility] catheterization lab in order to assess possibility of significant obstructive coronary artery disease leading symptoms of chest pain and subsequent non-ST elevation myocardial infarction. DESCRIPTION OF PROCEDURE: After informed consent was obtained, the patient was brought to the [facility] cardiac catheterization lab where right radial area was prepped and draped in the usual sterile fashion. A 2% lidocaine was infiltrated to the right radial order to achieve adequate anest hesia. Using the modified Seldinger technique, the radial artery was cannulated and a 6-Tajik JL3.5 catheter was used to cannulate the left main coronary ostium. With contrast injection, multiple vie ws of left coronary system were obtained. JR4 was used to cannulate the right coronary arterial osti um. With contrast injection, multiple views of right coronary system were obtained. We removed the guidewire and after LVP was measured and pullback across the aortic valve to assess for gradient, whi ch there was not and removed, we moved directly into an interventional procedure. The patient receiv ed initially 2000 units of heparin in order to achieve pre-interventional ACT. A Q3 guide was used t o cannulate the left main coronary ostium. A 0.014 Balance Middleweight guidewire was passed distal in LAD. Intravascular ultrasound probe was passed over the wire and into the ostium of the LAD and t hen back to the left main. Minimal lumen diameter was calculated at 5.3, but the cutoff for a flow-l imiting lesion with cross-sectional area was greater than 20. Subsequently, the Allis was removed an d, at this time, a 2.0 x 12 mm balloon was used to predilate the lesion within the LAD up to 16 to 18 atmospheres; this was removed, and the lesion was stented with a 3.0 x 18 mm drug-eluting stent, dep loyed at 16 atmospheres, post-dilated with the stent delivery system up to 18 atmospheres. The stent delivery system was removed and a 3.25 noncompliant balloon was used to further post-dilate the midp ortion of the stent up to 20 atmospheres. The noncompliant balloon was removed followed. Followup a ngiogram was obtained revealing excellent deployment of the stent, CHARLA 3 flow throughout the vessel, no signs of complication including perforation or dissection. Subsequently, at this time, the wire was pulled back and now placed distal into the circumflex, and the ostial circumflex was predilated w ith a 2.0 x 12 mm balloon up to 16 to 18 atmospheres; this was removed, and the lesion was stented wi th a 2.5 x 16 mm drug-eluting stent, deployed at 14 atmospheres x2. The balloon was removed. Follow up angiogram was obtained revealing excellent deployment of the stent, CHARLA 3 flow throughout the ves macario, no signs of complication including perforation or dissection. Subsequently, at this time, intra guide and guidewires were removed. The patient's sheath was removed. TR band was applied completing the procedure. There were no complications. FINDINGS: Coronary angiography: Left main 4.5 mm with a hazy appearance in the mid portion and damp ening when the catheter was deep into the left main. The circumflex proximally is a 2.5 mm vessel an d has a tubular lesion of 80%. There is a high branching OM ramus branch, 2.5 mm, with mild irregula rities of 10% to 20%. The remainder of the circumflex is free of significant focal stenosis. The LA D proximally is a 3 mm vessel and shortly after takeoff, has a focal 90% to 95% stenosis. Remainder LAD, thereafter, there is free from focal stenoses. There are several mid branching diagonals from 2 mm to 2.5 mm with no significant focal stenoses. The right coronary artery is a large, dominant ves macario; proximally is 3.5 mm, has luminal irregularities up to 30% in its mid portion, gives off a large PDA 3 mm and large posterolateral branch 3 mm, travels a long distance to the apex of the heart with no significant focal stenoses. LVEDP of 16 to 18. No significant aortic stenosis by gradient. PTCA and stent placement: Prior to PTCA and stent placement, the patient had a 90% to 95% focal prox imal LAD lesion. Post-PTCA and stent placement, had no residual stenosis, CHARLA 3 flow throughout the vessel, and no signs of complication including perforation or dissection. PTCA and stent placement in circumflex: Prior to PTCA and stent placement within the patient' circum flex, the patient had a tubular stenosis up to approximately 80%. Post-PTCA and stent placement, the patient had no residual stenosis, CHARLA 3 flow throughout the vessel, no signs of complication includ ing perforation or dissection. TOTAL FLUOROSCOPY TIME: 13.1 minutes. TOTAL CONTRAST: 165 mL. IMPRESSION: Two-vessel obstructive coronary artery disease involving the proximal LAD lesion and ost ial circumflex lesion, status post successful PTCA and stent placement x1 to proximal LAD and x1 to o stial circumflex, each with drug-eluting stent with excellent result. RECOMMENDATIONS: In light of procedure findings at this time, I would: 1. Maintain patient on Plavix 75 mg 1 tab p.o. daily, but patient will be receiving an extra 300 mg p.o. load after the stent, and aspirin 81 mg 1 tab p.o. daily indefinitely. 2. Maximize medical management. 3. Aggressive risk factor reduction. 4. The patient will be admitted to telemetry floor for post-catheterization observation and continue d management of symptoms with probable discharge the following day. Dictated By: LAZARO IBARRA/BUCK Conf#: [id number] DID#: [id number] CC: ROGER BROCK MD;*EndCC*
[2018-12-05] MEDS: ACCU-CHEK XX SCH (02:00)
[2018-12-05] MEDS: LEVOFLOXACIN 500 MG TAB PO SCH (06:18)
--- NOTE | 2018-12-05 06:27 | NUR ---
Notified Dr. Chavez pt blood pressure decreased to 79/42. Pt is awake and oriented but seems to be more weak. New orders given. Will continue to monitor pt.
[2018-12-05] MEDS ORDERED: SOD CHLORIDE 0.9% 500 ML IV ONE ×3 (06:30→20:30)
--- NOTE | 2018-12-05 06:47 | NUR ---
End of Shift Summary Pt vomited one time during shift. Zofran IV was given and pt has not vomited. Pt blood pressure became low. Pt has been awake and oriented but seems weak. Dr. Chavez was notified and orders for NS 500mL bolus to be given. Will monitor the pt, recheck blood pressure when NS bolus is complete and update Dr. Chavez.
--- NOTE | 2018-12-05 07:26 | NUR ---
Endorsed to oncoming RNBird, pt recieving 500mL NS bolus and to update Dr. Chavez/hospitalist of pt blood pressure after bolus complete.
[2018-12-05] MEDS: INSULIN ASPART [NOVOLOG] 3 ML PEN SC SCH ×4 (07:35→20:19)
--- NOTE | 2018-12-05 07:43 | NUR ---
PT: Pt was being seen for PT treatment, however is s/p heart cath procedure 12/04/18. PT department will require new MD orders to reinitiate PT treatment due to change in pt status.
[2018-12-05] MEDS: CLOPIDOGREL 75 MG TAB PO SCH (08:06)
[2018-12-05] MEDS: PENTOXIFYLLINE (SR) 400 MG TAB PO SCH ×3 (08:06→17:32)
[2018-12-05] MEDS: FAMOTIDINE 20 MG TAB PO SCH (08:06)
[2018-12-05] MEDS: ASPIRIN (EC) 81 MG TAB PO SCH (08:06)
[2018-12-05] MEDS: FUROSEMIDE 20 MG TAB PO SCH (08:06)
[2018-12-05] MEDS: FERROUS SULFATE (EC) 325 MG TAB PO SCH ×2 (08:06→20:19)
[2018-12-05] MEDS: GABAPENTIN 300 MG CAP PO SCH ×3 (08:06→20:19)
[2018-12-05] MEDS: SACCHAROMYCES BOULARDII 250 MG CAP PO SCH ×2 (08:06→20:19)
[2018-12-05] MEDS: METOPROLOL (XL) 25 MG TAB PO SCH (08:07)
[2018-12-05] MEDS: BENAZEPRIL 10 MG TAB PO SCH (08:07)
[2018-12-05] MEDS: AMLODIPINE 10 MG TAB PO SCH (08:08)
[2018-12-05] MEDS: INSULIN GLARGINE [LANTus] (100 UNITS/ML) SYG SC SCH (08:11)
[2018-12-05] MEDS ORDERED: CLOPIDOGREL 75 MG TAB PO SCH (09:00)
[2018-12-05] MEDS ORDERED: ASPIRIN (EC) 81 MG TAB PO SCH (09:00)
--- NOTE | 2018-12-05 13:30 | CONS ---
Date/Time of Note Date/Time of Note DATE: 12/05/18 TIME: 13:29 Assessment/Plan Assessment/Plan Assessment/Plan 1. Non-ST elevation myocardial infarction in the setting of upper respiratory infection, likely type 2 demand infarct with known coronary artery disease.- downtrending cardiac enzymes. Now s/p stent x 1 to LAD prox with SHAREE and x 1 to LCX x 1 with SHAREE - no CP now - con't med rx 2. Chest pain could be due to patient's [id number]-[id number] myocardial infarction which he had, but also in the setting of cough- s/p stenting now. 3. Abnormal electrocardiogram with lateral T-wave inversions. 4. Hypertension - now on low side, but no Sx - stable 5. Dyslipidemia.-LDL 72 HDL 47 6. Upper respiratory infection. Negative flu swabs.-improving significantly 7. Diabetes mellitus with uncontrolled blood sugars. 8. Anemia- no evodence of bleeding now 9. Leukocytosis. 10. cardiomyopathy-LVEF 35-40 by echo this admit - no Class I indication for ICD Result Diagram: 12/05/18 0559 12/05/18 0559 Results 24hrs Laboratory Tests Test 12/04/18 17:20 12/04/18 20:58 12/04/18 23:37 12/05/18 05:59 Bedside Glucose 86 97 122 White Blood Count 20.1 #H Red Blood Count 2.98 L Hemoglobin 9.3 L Hematocrit 27.8 L Mean Corpuscular Volume 93.3 Mean Corpuscular 31.2 Hemoglobin Mean Corpuscular 33.5 Hemoglobin Concent Red Cell Distribution 12.6 Width Platelet Count 363 Mean Platelet Volume 9.5 Immature Granulocytes % 1.000 H Neutrophils % 85.9 H Lymphocytes % 7.5 L Monocytes % 5.2 Eosinophils % 0.2 Basophils % 0.2 Nucleated Red Blood 0.0 Cells % Immature Granulocytes # 0.200 H Neutrophils # 17.2 H Lymphocytes # 1.5 Monocytes # 1.1 H Eosinophils # 0.0 Basophils # 0.1 Nucleated Red Blood 0.0 Cells # Sodium Level 143 Potassium Level 4.6 Chloride Level 106 Carbon Dioxide Level 31 Anion Gap 6 Blood Urea Nitrogen 28 H Creatinine 1.27 H Est Glomerular Filtrat 57 L Rate mL/min Glucose Level 86 # Calcium Level 8.6 Test 12/05/18 07:34 12/05/18 11:49 Bedside Glucose 77 126 Consultation Date/Type/Reason Admit Date/Time Nov 26, 2018 at 18:46 Initial Consult Date Requesting Provider: GILDARDO QUINTEROS PLASTIC SURGEON 24 HR Interval Summary Free Text/Dictation Stable - BP on low side but no Sx - allow for now ROS: No fever, no chills, no nausea, no vomiting, no diarrhea/constipation No recent weight changes No chest pain, no PND, no orthopnea + SOB/cough No dizziness, blurred vision No thirst, no heat or cold intolerance Exam/Review of Systems Vital Signs Vitals Vital Signs Date Temp Pulse Resp B/P (MAP) Pulse Ox O2 O2 Flow FiO2 Time Delivery Rate 12/05/18 98.6 70 29 90/54 (66) 95 Nasal 11:40 Cannula 12/05/18 2.0 28 10:09 Intake and Output 12/04/18 12/04/18 12/05/18 1515:00 23:00 07:00 IntakeIntake Total 370 ml OutputOutput Total 400 ml BalanceBalance -30 ml Exam General: WN/WD/NAD, AOx 3 HEENT: Unicetric/atraumatic/EOMI (follow commands) NECK: JVD elevated, no thyromegaly Lymph: no lymphadenopathy HEART: regular with no S3, II/ systolic murmur at apex LUNGS: Coarse sounds ABD: soft, NT, ND, +BS : Intact Neuro: non focal SKIN: chronic changes EXT: trace edema Medications Medications Current Medications Alendronate Sodium (Fosamax) 70 mg Mo@0725 PO Last administered on 11/30/18at 08:52; Admin Dose 70 MG; Start 11/30/18 at 07:25 Aspirin (Halfprin) 81 mg DAILY PO Last administered on 12/05/18 08:06; Admin Dose 81 MG; Start 11/27/18 at 09:00 Atorvastatin Calcium (Lipitor) 20 mg QHS PO Last administered on 12/04/18 20:59; Admin Dose 20 MG; Start 11/26/18 at 22:00 Ergocalciferol (Drisdol) 50,000 unit Q7D PO Last administered on 12/03/18 20:39; Admin Dose 50,000 UNIT; Start 11/26/18 at 21:00 Ferrous Sulfate (Ferrous Sulfate (Ec)) 325 mg BID PO Last administered on 12/05/18 08:06; Admin Dose 325 MG; Start 11/26/18 at 21:00 Gabapentin (Neurontin) 600 mg TID PO Last administered on 12/05/18 12:04; Admin Dose 600 MG; Start 11/26/18 at 21:00 Diagnostic Test (Pha) (Accu-Chek) 1 ea 02 XX Last administered on 12/04/18 01:48; Admin Dose 1 EA; Start 11/27/18 at 02:00 IV Flush (NS 3 ml) 3 ml PER PROTOCOL IV ; Start 11/26/18 at 21:00 Nitroglycerin (Nitroglycerin (Sl Tab) 0.4 Mg) 1 tab Q5M PRN SL CHEST PAIN; Start 11/26/18 at 21:00 Acetaminophen (Tylenol Tab) 650 mg Q6H PRN PO PAIN LEVEL 1-3 OR FEVER; Start 11/26/18 at 21:00 Docusate Sodium (Colace) 100 mg Q12H PRN PO CONSTIPATION; Start 11/26/18 at 21:00 Bisacodyl (Dulcolax) 5 mg DAILY PRN PO CONSTIPATION; Start 11/26/18 at 21:00 Levalbuterol (Xopenex Neb) 1.25 mg Q4H RESP THERAPY PRN HHN WHEEZING AND SOB; Start 11/26/18 at 21:00 Miscellaneous Information 1 ea NOTE XX ; Start 11/26/18 at 22:00 Glucose (Glutose) 15 gm Q15M PRN PO DECREASED GLUCOSE; Start 11/26/18 at 22:00 Glucose (Glutose) 22.5 gm Q15M PRN PO DECREASED GLUCOSE; Start 11/26/18 at 22:00 Dextrose (D50w Syringe) 25 ml Q15M PRN IV DECREASED GLUCOSE; Start 11/26/18 at 22:00 Dextrose (D50w Syringe) 50 ml Q15M PRN IV DECREASED GLUCOSE; Start 11/26/18 at 22:00 Glucagon (Glucagen) 1 mg Q15M PRN IM DECREASED GLUCOSE; Start 11/26/18 at 22: 00 Glucose (Glutose) 15 gm Q15M PRN BUCCAL DECREASED GLUCOSE; Start 11/26/18 at 22:00 Insulin Aspart (Novolog Insulin Pen) NOVOLOG *MODERATE* ALGORITHM WITH MEALS BEDTIME SC Last administered on 12/03/18 20:50; Admin Dose 1 UNIT; Start 11/27/18 at 07:55 Amlodipine Besylate (Norvasc) 10 mg DAILY PO Last administered on 12/04/18 08:15; Admin Dose 10 MG; Start 11/27/18 at 09:00 Pentoxifylline (Trental) 400 mg WITH MEALS PO Last administered on 12/05/18 12:04; Admin Dose 400 MG; Start 11/27/18 at 07:55 Metoprolol Succinate (Toprol Xl) 25 mg DAILY PO Last administered on 12/04/18 08:14; Admin Dose 25 MG; Start 11/28/18 at 09:00 Hydralazine HCl (Apresoline) 10 mg Q6H PRN IV SBP>160 Last administered on 11/28/18at 12:23; Admin Dose 10 MG; Start 11/28/18 at 12:00 Saccharomyces Boulardii (Florastor) 250 mg BID PO Last administered on 12/05/18 08:06; Admin Dose 250 MG; Start 11/28/18 at 21:00 Benazepril HCl (Lotensin) 10 mg DAILY PO Last administered on 12/04/18 08:14; Admin Dose 10 MG; Start 11/29/18 at 09:00 Insulin Glargine (Lantus) 16 units DAILY SC Last administered on 12/05/18 08:11; Admin Dose 16 UNITS; Start 11/30/18 at 09:00 Enoxaparin Sodium (Lovenox) 40 mg DAILY SC Last administered on 12/03/18 08:29; Admin Dose 40 MG; Start 11/30/18 at 09:00; Status Hold Clopidogrel Bisulfate (plaVIX) 75 mg DAILY PO Last administered on 12/05/18 08:06; Admin Dose 75 MG; Start 11/30/18 at 09:00 Levofloxacin (Levaquin) 500 mg DAILY@06 PO Last administered on 12/05/18 06:18; Admin Dose 500 MG; Start 12/01/18 at 06:00 Guaifenesin/ Dextromethorphan (Robitussin Dm Liquid Cup) 10 ml Q4H PRN PO COUGH; Start 11/30/18 at 16:30 Ipratropium [place] (Atrovent Hfa) 2 puff Q6H RESP THERAPY PRN INH SHORTNESS OF BREATH; Start 11/30/18 at 16:30 Famotidine (Pepcid) 20 mg DAILY PO Last administered on 12/05/18at 08:06; Admin Dose 20 MG; Start 12/03/18 at 09:00 Furosemide (Lasix) 20 mg DAILY PO Last administered on 12/04/18at 08:15; Admin Dose 20 MG; Start 12/03/18 at 09:00 Acetaminophen (Tylenol Tab) 650 mg Q4H PRN PO pain; Start 12/04/18 at 16:00 Oxycodone/ Acetaminophen (Percocet (5/ 325)) 1 tab Q4H PRN PO PAIN 4-6; Start 12/04/18 at 16:00 Morphine Sulfate (morphine SULFATE (PF)) 1 mg Q2H PRN IV PAIN 7-10; Start 12/04/18 at 16:00 Zolpidem Tartrate (Ambien) 5 mg HS MAY REPEAT X 1 PRN PO INSOMNIA; Start 12/04/18 at 16:00 Al Hydrox/Mg Hydrox/Simethicone (Mag-Al Plus) 30 ml Q4H PRN PO GASTROINTESTINAL UPSET; Start 12/04/18 at 16:00 Ondansetron HCl (Zofran Inj) 4 mg Q4H PRN IV NAUSEA AND/OR VOMITING Last administered on 12/04/18at 23:33; Admin Dose 4 MG; Start 12/04/18 at 16:00 SUHAIL SÁNCHEZ MD Dec 05, 2018 13:30
--- NOTE | 2018-12-05 16:01 | PN ---
Date/Time of Note Date/Time of Note DATE: 12/05/18 TIME: 15:59 Assessment/Plan VTE Prophylaxis Risk score (from Ns)>0 risk: 5 SCD applied (from [facility] [place]): Yes SCD contraindicated: low risk/ambulating Pharmacological prophylaxis: LMWH Assessment/Plan Hospital Course Assessment plan 1. Hcap vs cap, stable finishing antibiotics. No influenza 2. Type II VA stable observe sp angiogram. 3. Chr CAD/LAD stent, sp PCI- SHAREE 12/04; stable cont medical mngmnt follow-up with cardiology 4. Chr ischemic cardiomyopathy, EF 35% stable, start hold Lasix/ACEi due to renal insuff. cont bb 5. Chr dyslipidemia 6. PAD? 7. Dyslipidemia 8. Type 2 diabetes A1c 8.8 not at goal unfortunately 9. Past tobacco 10. COPD? 11. Subclinical hyperthyroidism? 12. Atypical chest pain likely related pneumonia 13. Iron deficiency anemia 14. Acute renal failure, stable, treat hypovolemia. Hold ACEi/Lasix S: 11/30 cough chest pain improved no fever. 12/01: No distress. Less cough /2: No events no distress 12/03: No events. Occasional cough /4: No events /: Some cough fatigue. No chest pain dyspnea O: Vss PE No pallor JVD Regular no murmur gallop Clear benign No edema Result Diagram: 12/05/18 0559 12/05/18 0559 Results 24hrs Laboratory Tests Test 12/04/18 17:20 12/04/18 20:58 12/04/18 23:37 12/05/18 05:59 Bedside Glucose 86 97 122 White Blood Count 20.1 #H Red Blood Count 2.98 L Hemoglobin 9.3 L Hematocrit 27.8 L Mean Corpuscular Volume 93.3 Mean Corpuscular 31.2 Hemoglobin Mean Corpuscular 33.5 Hemoglobin Concent Red Cell Distribution 12.6 Width Platelet Count 363 Mean Platelet Volume 9.5 Immature Granulocytes % 1.000 H Neutrophils % 85.9 H Lymphocytes % 7.5 L Monocytes % 5.2 Eosinophils % 0.2 Basophils % 0.2 Nucleated Red Blood 0.0 Cells % Immature Granulocytes # 0.200 H Neutrophils # 17.2 H Lymphocytes # 1.5 Monocytes # 1.1 H Eosinophils # 0.0 Basophils # 0.1 Nucleated Red Blood 0.0 Cells # Sodium Level 143 Potassium Level 4.6 Chloride Level 106 Carbon Dioxide Level 31 Anion Gap 6 Blood Urea Nitrogen 28 H Creatinine 1.27 H Est Glomerular Filtrat 57 L Rate mL/min Glucose Level 86 # Calcium Level 8.6 Test 12/05/18 07:34 12/05/18 11:49 Bedside Glucose 77 126 Exam/Review of Systems Vital Signs Vitals Vital Signs Date Temp Pulse Resp B/P (MAP) Pulse Ox O2 O2 Flow FiO2 Time Delivery Rate 12/05/18 70 12:02 12/05/18 98.6 29 90/54 (66) 95 Nasal 11:40 Cannula 12/05/18 2.0 28 10:09 Intake and Output 12/04/18 12/04/18 12/05/18 1515:00 23:00 07:00 IntakeIntake Total 370 ml OutputOutput Total 400 ml BalanceBalance -30 ml Medications Medications Current Medications Alendronate Sodium (Fosamax) 70 mg Mo@0725 PO Last administered on 11/30/18at 08:52; Admin Dose 70 MG; Start 11/30/18 at 07:25 Aspirin (Halfprin) 81 mg DAILY PO Last administered on 12/05/18 08:06; Admin Dose 81 MG; Start 11/27/18 at 09:00 Atorvastatin Calcium (Lipitor) 20 mg QHS PO Last administered on 12/04/18 20:59; Admin Dose 20 MG; Start 11/26/18 at 22:00 Ergocalciferol (Drisdol) 50,000 unit Q7D PO Last administered on 12/03/18 20:39; Admin Dose 50,000 UNIT; Start 11/26/18 at 21:00 Ferrous Sulfate (Ferrous Sulfate (Ec)) 325 mg BID PO Last administered on 12/05/18 08:06; Admin Dose 325 MG; Start 11/26/18 at 21:00 Gabapentin (Neurontin) 600 mg TID PO Last administered on 12/05/18 12:04; Admin Dose 600 MG; Start 11/26/18 at 21:00 Diagnostic Test (Pha) (Accu-Chek) 1 ea 02 XX Last administered on 12/04/18 01:48; Admin Dose 1 EA; Start 11/27/18 at 02:00 IV Flush (NS 3 ml) 3 ml PER PROTOCOL IV ; Start 11/26/18 at 21:00 Nitroglycerin (Nitroglycerin (Sl Tab) 0.4 Mg) 1 tab Q5M PRN SL CHEST PAIN; Start 11/26/18 at 21:00 Acetaminophen (Tylenol Tab) 650 mg Q6H PRN PO PAIN LEVEL 1-3 OR FEVER; Start 11/26/18 at 21:00 Docusate Sodium (Colace) 100 mg Q12H PRN PO CONSTIPATION; Start 11/26/18 at 21:00 Bisacodyl (Dulcolax) 5 mg DAILY PRN PO CONSTIPATION; Start 11/26/18 at 21:00 Levalbuterol (Xopenex Neb) 1.25 mg Q4H RESP THERAPY PRN HHN WHEEZING AND SOB; Start 11/26/18 at 21:00 Miscellaneous Information 1 ea NOTE XX ; Start 11/26/18 at 22:00 Glucose (Glutose) 15 gm Q15M PRN PO DECREASED GLUCOSE; Start 11/26/18 at 22:00 Glucose (Glutose) 22.5 gm Q15M PRN PO DECREASED GLUCOSE; Start 11/26/18 at 22:00 Dextrose (D50w Syringe) 25 ml Q15M PRN IV DECREASED GLUCOSE; Start 11/26/18 at 22:00 Dextrose (D50w Syringe) 50 ml Q15M PRN IV DECREASED GLUCOSE; Start 11/26/18 at 22:00 Glucagon (Glucagen) 1 mg Q15M PRN IM DECREASED GLUCOSE; Start 11/26/18 at 22:00 Glucose (Glutose) 15 gm Q15M PRN BUCCAL DECREASED GLUCOSE; Start 11/26/18 at 22:00 Insulin Aspart (Novolog Insulin Pen) NOVOLOG *MODERATE* ALGORITHM WITH MEALS BEDTIME SC Last administered on 12/03/18 20:50; Admin Dose 1 UNIT; Start 11/27/18 at 07:55 Pentoxifylline (Trental) 400 mg WITH MEALS PO Last administered on 12/05/18 12:04; Admin Dose 400 MG; Start 11/27/18 at 07:55 Metoprolol Succinate (Toprol Xl) 25 mg DAILY PO Last administered on 12/04/18 08:14; Admin Dose 25 MG; Start 11/28/18 at 09:00 Hydralazine HCl (Apresoline) 10 mg Q6H PRN IV SBP>160 Last administered on 11/28/18at 12:23; Admin Dose 10 MG; Start 11/28/18 at 12:00 Saccharomyces Boulardii (Florastor) 250 mg BID PO Last administered on 12/05/18 08:06; Admin Dose 250 MG; Start 11/28/18 at 21:00 Insulin Glargine (Lantus) 16 units DAILY SC Last administered on 12/05/18 08:11; Admin Dose 16 UNITS; Start 11/30/18 at 09:00 Enoxaparin Sodium (Lovenox) 40 mg DAILY SC Last administered on 12/03/18 08:29; Admin Dose 40 MG; Start 11/30/18 at 09:00; Status Hold Clopidogrel Bisulfate (plaVIX) 75 mg DAILY PO Last administered on 12/05/18 08:06; Admin Dose 75 MG; Start 11/30/18 at 09:00 Guaifenesin/ Dextromethorphan (Robitussin Dm Liquid Cup) 10 ml Q4H PRN PO COUGH; Start 11/30/18 at 16:30 Ipratropium [place] (Atrovent Hfa) 2 puff Q6H RESP THERAPY PRN INH SHORTNESS OF BREATH; Start 11/30/18 at 16:30 Famotidine (Pepcid) 20 mg DAILY PO Last administered on 12/05/18 08:06; Admin Dose 20 MG; Start 12/03/18 at 09:00 Acetaminophen (Tylenol Tab) 650 mg Q4H PRN PO pain; Start 12/04/18 at 16:00 Oxycodone/ Acetaminophen (Percocet (5/ 325)) 1 tab Q4H PRN PO PAIN 4-6; Start 12/04/18 at 16:00 Morphine Sulfate (morphine SULFATE (PF)) 1 mg Q2H PRN IV PAIN 7-10; Start 12/04/18 at 16:00 Zolpidem Tartrate (Ambien) 5 mg HS MAY REPEAT X 1 PRN PO INSOMNIA; Start 12/04/18 at 16:00 Al Hydrox/Mg Hydrox/Simethicone (Mag-Al Plus) 30 ml Q4H PRN PO GASTROINTESTINAL UPSET; Start 12/04/18 at 16:00 Ondansetron HCl (Zofran Inj) 4 mg Q4H PRN IV NAUSEA AND/OR VOMITING Last administered on 12/04/18at 23:33; Admin Dose 4 MG; Start 12/04/18 at 16:00 Amlodipine Besylate (Norvasc) 2.5 mg DAILY PO ; Start 12/07/18 at 09:00 Benazepril HCl (Lotensin) 5 mg DAILY PO ; Start 12/07/18 at 09:00 Sodium Chloride 500 ml @ 500 mls/hr Q1H ONCE IV ; Start 12/05/18 at 20:30; Stop 12/05/18 at 21:29 GAVIN BROCK MD Dec 05, 2018 16:01
[2018-12-05] MEDS: LACTOBACILLUS RHAMNOSUS CAP PO SCH (20:19)
[2018-12-05] MEDS: ATORVASTATIN 20 MG TAB PO SCH (20:19)
[2018-12-06] VITALS (8 sets, daily range): BP systolic 111–123; BP diastolic 62–70; PULSE 66–77; RESP 15–17
[2018-12-06] MEDS: ACCU-CHEK XX SCH (02:00)
--- NOTE | 2018-12-06 05:56 | NUR ---
NOTES RESTING ON BED PT ENCOURAGE TO TURN SIDE @ TIMES. MEDS GIVEN. STILL WITH O2 VIA NASAL CANNULA. WILL CONTINUE TO MONITOR PT.
[2018-12-06] MEDS: INSULIN ASPART [NOVOLOG] 3 ML PEN SC SCH ×2 (07:41→11:48)
[2018-12-06] MEDS: FERROUS SULFATE (EC) 325 MG TAB PO SCH (08:05)
[2018-12-06] MEDS: SACCHAROMYCES BOULARDII 250 MG CAP PO SCH (08:05)
[2018-12-06] MEDS: METOPROLOL (XL) 25 MG TAB PO SCH (08:05)
[2018-12-06] MEDS: CLOPIDOGREL 75 MG TAB PO SCH (08:05)
[2018-12-06] MEDS: GABAPENTIN 300 MG CAP PO SCH ×2 (08:05→12:06)
[2018-12-06] MEDS: LACTOBACILLUS RHAMNOSUS CAP PO SCH (08:06)
[2018-12-06] MEDS: ASPIRIN (EC) 81 MG TAB PO SCH (08:06)
[2018-12-06] MEDS: PENTOXIFYLLINE (SR) 400 MG TAB PO SCH ×2 (08:06→12:06)
[2018-12-06] MEDS: FAMOTIDINE 20 MG TAB PO SCH (08:06)
[2018-12-06] MEDS: INSULIN GLARGINE [LANTus] (100 UNITS/ML) SYG SC SCH (08:08)
--- NOTE | 2018-12-06 13:48 | CONS ---
Date/Time of Note Date/Time of Note DATE: 12/06/18 TIME: 13:47 Assessment/Plan Assessment/Plan Assessment/Plan 1. Non-ST elevation myocardial infarction in the setting of upper respiratory infection, likely type 2 demand infarct with known coronary artery disease.- downtrending cardiac enzymes. Now s/p stent x 1 to LAD prox with SHAREE and x 1 to LCX x 1 with SHAREE - no CP now - con't med rx - BP better now. 2. Chest pain could be due to patient's [id number] myocardial infarction which he had, but also in the setting of cough- s/p stenting now. Tolerated well. 3. Abnormal electrocardiogram with lateral T-wave inversions. 4. Hypertension - now on low side, but no Sx - stable - BP improved. 5. Dyslipidemia.-LDL 72 HDL 47 6. Upper respiratory infection. Negative flu swabs.-improving significantly 7. Diabetes mellitus with uncontrolled blood sugars. 8. Anemia- no evodence of bleeding now 9. Leukocytosis- on anti-bx, better now 10. cardiomyopathy-LVEF 35-40 by echo this admit - no Class I indication for ICD Result Diagram: 12/05/18 0559 12/06/18 0632 Results 24hrs Laboratory Tests Test 12/05/18 16:41 12/05/18 20:17 12/06/18 06:32 12/06/18 07:41 Bedside Glucose 255 H 117 91 Sodium Level 143 Potassium Level 4.7 Chloride Level 110 Carbon Dioxide Level 30 Anion Gap 3 L Blood Urea Nitrogen 27 H Creatinine 1.04 Est Glomerular Filtrat > 60 Rate mL/min Glucose Level 74 Calcium Level 8.6 Magnesium Level 1.9 Test 12/06/18 11:46 Bedside Glucose 128 Consultation Date/Type/Reason Admit Date/Time Nov 26, 2018 at 18:46 Initial Consult Date Requesting Provider: GILDARDO QUINTEROS NP 24 HR Interval Summary Free Text/Dictation NO acute events - BP in good range - NO CP now - ROS: No fever, no chills, no nausea, no vomiting, no diarrhea/constipation No recent weight changes No chest pain, no PND, no orthopnea No dizziness, blurred vision No thirst, no heat or cold intolerance Exam/Review of Systems Vital Signs Vitals Vital Signs Date Temp Pulse Resp B/P (MAP) Pulse Ox O2 O2 Flow FiO2 Time Delivery Rate 12/06/18 66 12:23 12/06/18 98.4 17 123/67 99 Nasal 11:37 (85) Cannula 12/06/18 2.0 05:56 12/05/18 28 10:09 Intake and Output 12/05/18 12/05/18 12/06/18 1515:00 23:00 07:00 IntakeIntake Total 1820 ml 120 ml OutputOutput Total 120 ml BalanceBalance 1820 ml 0 ml Exam General: WN/WD/NAD, AOx 3 - more alert today HEENT: Unicetric/atraumatic/EOMI (follow commands) NECK: JVD elevated, no thyromegaly Lymph: no lymphadenopathy HEART: regular with no S3, II/ systolic murmur at apex LUNGS: Coarse sounds ABD: soft, NT, ND, +BS : Intact Neuro: non focal SKIN: chronic changes EXT: trace edema, wounds Medications Medications Current Medications Alendronate Sodium (Fosamax) 70 mg Mo@0725 PO Last administered on 11/30/18at 08:52; Admin Dose 70 MG; Start 11/30/18 at 07:25 Aspirin (Halfprin) 81 mg DAILY PO Last administered on 12/06/18 08:06; Admin Dose 81 MG; Start 11/27/18 at 09:00 Atorvastatin Calcium (Lipitor) 20 mg QHS PO Last administered on 12/05/18 20:19; Admin Dose 20 MG; Start 11/26/18 at 22:00 Ergocalciferol (Drisdol) 50,000 unit Q7D PO Last administered on 12/03/18 20:39; Admin Dose 50,000 UNIT; Start 11/26/18 at 21:00 Ferrous Sulfate (Ferrous Sulfate (Ec)) 325 mg BID PO Last administered on 12/06/18 08:05; Admin Dose 325 MG; Start 11/26/18 at 21:00 Gabapentin (Neurontin) 600 mg TID PO Last administered on 12/06/18 12:06; Admin Dose 600 MG; Start 11/26/18 at 21:00 Diagnostic Test (Pha) (Accu-Chek) 1 ea 02 XX Last administered on 12/04/18 01:48; Admin Dose 1 EA; Start 11/27/18 at 02:00 IV Flush (NS 3 ml) 3 ml PER PROTOCOL IV ; Start 11/26/18 at 21:00 Nitroglycerin (Nitroglycerin (Sl Tab) 0.4 Mg) 1 tab Q5M PRN SL CHEST PAIN; Start 11/26/18 at 21:00 Acetaminophen (Tylenol Tab) 650 mg Q6H PRN PO PAIN LEVEL 1-3 OR FEVER; Start 11/26/18 at 21:00 Docusate Sodium (Colace) 100 mg Q12H PRN PO CONSTIPATION; Start 11/26/18 at 21:00 Bisacodyl (Dulcolax) 5 mg DAILY PRN PO CONSTIPATION; Start 11/26/18 at 21:00 Levalbuterol (Xopenex Neb) 1.25 mg Q4H RESP THERAPY PRN HHN WHEEZING AND SOB; Start 11/26/18 at 21:00 Miscellaneous Information 1 ea NOTE XX ; Start 11/26/18 at 22:00 Glucose (Glutose) 15 gm Q15M PRN PO DECREASED GLUCOSE; Start 11/26/18 at 22:00 Glucose (Glutose) 22.5 gm Q15M PRN PO DECREASED GLUCOSE; Start 11/26/18 at 22:00 Dextrose (D50w Syringe) 25 ml Q15M PRN IV DECREASED GLUCOSE; Start 11/26/18 at 22:00 Dextrose (D50w Syringe) 50 ml Q15M PRN IV DECREASED GLUCOSE; Start 11/26/18 at 22:00 Glucagon (Glucagen) 1 mg Q15M PRN IM DECREASED GLUCOSE; Start 11/26/18 at 22:00 Glucose (Glutose) 15 gm Q15M PRN BUCCAL DECREASED GLUCOSE; Start 11/26/18 at 22:00 Insulin Aspart (Novolog Insulin Pen) NOVOLOG *MODERATE* ALGORITHM WITH MEALS BEDTIME SC Last administered on 12/05/18 16:44; Admin Dose 6 UNIT; Start 11/27/18 at 07:55 Pentoxifylline (Trental) 400 mg WITH MEALS PO Last administered on 12/06/18 12:06; Admin Dose 400 MG; Start 11/27/18 at 07:55 Metoprolol Succinate (Toprol Xl) 25 mg DAILY PO Last administered on 12/06/18 08:05; Admin Dose 25 MG; Start 11/28/18 at 09:00 Hydralazine HCl (Apresoline) 10 mg Q6H PRN IV SBP>160 Last administered on 11/28/18at 12:23; Admin Dose 10 MG; Start 11/28/18 at 12:00 Saccharomyces Boulardii (Florastor) 250 mg BID PO Last administered on 12/06/18 08:05; Admin Dose 250 MG; Start 11/28/18 at 21:00 Insulin Glargine (Lantus) 16 units DAILY SC Last administered on 12/06/18 08:08; Admin Dose 16 UNITS; Start 11/30/18 at 09:00 Enoxaparin Sodium (Lovenox) 40 mg DAILY SC Last administered on 12/03/18 08:29; Admin Dose 40 MG; Start 11/30/18 at 09:00; Status Hold Clopidogrel Bisulfate (plaVIX) 75 mg DAILY PO Last administered on 12/06/18 08:05; Admin Dose 75 MG; Start 11/30/18 at 09:00 Guaifenesin/ Dextromethorphan (Robitussin Dm Liquid Cup) 10 ml Q4H PRN PO COUGH; Start 11/30/18 at 16:30 Ipratropium [place] (Atrovent Hfa) 2 puff Q6H RESP THERAPY PRN INH SHORTNESS OF BREATH; Start 11/30/18 at 16:30 Famotidine (Pepcid) 20 mg DAILY PO Last administered on 12/06/18at 08:06; Admin Dose 20 MG; Start 12/03/18 at 09:00 Acetaminophen (Tylenol Tab) 650 mg Q4H PRN PO pain; Start 12/04/18 at 16:00 Oxycodone/ Acetaminophen (Percocet (5/ 325)) 1 tab Q4H PRN PO PAIN 4-6; Start 12/04/18 at 16:00 Morphine Sulfate (morphine SULFATE (PF)) 1 mg Q2H PRN IV PAIN 7-10; Start 12/04/18 at 16:00 Zolpidem Tartrate (Ambien) 5 mg HS MAY REPEAT X 1 PRN PO INSOMNIA; Start 12/04/18 at 16:00 Al Hydrox/Mg Hydrox/Simethicone (Mag-Al Plus) 30 ml Q4H PRN PO GASTROINTESTINAL UPSET; Start 12/04/18 at 16:00 Ondansetron HCl (Zofran Inj) 4 mg Q4H PRN IV NAUSEA AND/OR VOMITING Last administered on 12/04/18at 23:33; Admin Dose 4 MG; Start 12/04/18 at 16:00 Amlodipine Besylate (Norvasc) 2.5 mg DAILY PO ; Start 12/07/18 at 09:00 Benazepril HCl (Lotensin) 5 mg DAILY PO ; Start 12/07/18 at 09:00 Lactobacillus Acidophilus/ Rhamnosus (Culturelle) 1 cap BID PO Last administered on 12/06/18at 08:06; Admin Dose 1 CAP; Start 12/05/18 at 21:00 SUHAIL SÁNCHEZ MD Dec 06, 2018 13:48
--- NOTE | 2018-12-06 13:57 | NUR ---
Nutrition Consult Pt was seen at bedside. He had no nutrition related questions and no complaints. Will continue to monitor. Thank you!
--- NOTE | 2018-12-06 14:27 | DS ---
Date/Time of Note Date/Time of Note DATE: 12/06/18 TIME: 14:21 Discharge Summary Admission/Discharge Info Admit Date/Time Nov 26, 2018 at 18:46 Discharge Date/Time Patient Condition: Good Consults Dr Herbert Procedures IMPRESSION: 1. Bibasilar subsegmental atelectasis and/or airspace disease. 2. Trace left pleural effusion. 3. Low lung volumes. Miguel Noel, Physician CT A/P IMPRESSION: 1. Dependent atelectasis of the lungs is seen. There is a peribronchial nodular infiltrate with adjacent ground-glass opacity in the right lower lobe. Bronchiolitis from a variety of etiologies including infectious should be considered. 2. Evaluation of the bowel is limited by lack of enteric contrast. The colon is slightly distended with air and fluid. There is not significant colonic wall thickening or pericolonic stranding to specifically suggest colitis. Slightly increased mucosal enhancement of the rectosigmoid. 3. Slightly enlarged prostate with central calcification. Correlate with PSA. Carolina Goss Physician Date Time CARDIAC CATH IMPRESSION: Two-vessel obstructive coronary artery disease involving the proximal LAD lesion and ostial circumflex lesion, status post successful PTCA and stent placement x1 to proximal LAD and x1 to ostial circumflex, each with drug-eluting stent with excellent result. RECOMMENDATIONS: In light of procedure findings at this time, I would: 1. Maintain patient on Plavix 75 mg 1 tab p.o. daily, but patient will be receiving an extra 300 mg p.o. load after the stent, and aspirin 81 mg 1 tab p.o. daily indefinitely. 2. Maximize medical management. 3. Aggressive risk factor reduction. 4. The patient will be admitted to telemetry floor for post-catheterization observation and continued management of symptoms with probable discharge the following day. 2D ECHO Normal left ventricular systolic function. Normal left ventricular cavity size. Mild concentric left ventricular hypertrophy. Moderate left ventricular systolic dysfunction. Ejection fraction is visually estimated at 35-40 %. Tissue Doppler/Mitral Doppler indices are consistent with impaired relaxation (Stage I diastolic dysfunction). These segments of the LV are hypokinetic apex. Mitral valve leaflets appear mildly thickened. Mild mitral annular calcification. There is trace to mild mitral valve regurgitation. Normal appearance of the tricuspid valve. Estimated peak PA systolic pressure 25 mmHg. There is trace tricuspid regurgitation. Electronically Signed By: Dao Herbert Hx of Present Illness 68-year-old gentleman admitted with shortness of breath Hospital Course Hospital course Noted and for conservative healthcare associated versus community acquired pneumonia. He has finished antibiotics. In the meantime he had an elevated troponin concerning for secondary TX/due to his infection hypovolemia. Discharge patient did go undergo cardiac catheterization and 2 drug-eluting stents were placed. 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 Assessment plan 1. Hcap vs cap, stable finishing antibiotics. No influenza 2. Type II [place] stable observe sp angiogram. 3. Chr CAD/LAD stent, sp PCI- SHAREE 12/04; stable cont medical mngmnt, discharge, follow-up with cardiology 4. Chr ischemic cardiomyopathy, EF 35% stable, start hold Lasix/ACEi due to renal insuff. cont bb 5. Chr dyslipidemia 6. PAD? 7. Dyslipidemia 8. Type 2 diabetes A1c 8.8 not at goal unfortunately 9. Past tobacco 10. COPD? 11. Subclinical hyperthyroidism? 12. Atypical chest pain likely related pneumonia 13. Iron deficiency anemia 14. Acute renal failure, stable, resolved, treated hypovolemia. Hold ACEi/Lasix S: 11/30 cough chest pain improved no fever. 12/01: No distress. Less cough 1/2: No events no distress /3: No events. Occasional cough /4: No events /5: Some cough fatigue. No chest pain dyspnea /6: No events some cough but has more energy O: Vss PE No pallor JVD Regular no murmur gallop Clear benign No edema Home Meds Reported Medications Atorvastatin Calcium* (Atorvastatin Calcium*) 20 Mg Tablet, 20 MG PO QHS, #30 TAB 11/26/18 Insulin Glargine* (Lantus*) 100 Unit/Ml Soln, 20 UNIT SC DAILY, #1 VIAL 11/26/18 Ergocalciferol (Vitamin D2) (VITAMIN D2) 50,000 Unit Capsule, 35121 UNIT PO Q7D, CAP 11/26/18 Ferrous Sulfate* (Ferrous Sulfate*) 325 Mg Tabec, 325 MG PO BID, TAB 11/26/18 Dapagliflozin Propanediol (Farxiga) 10 Mg Tablet, 10 MG PO DAILY, #30 TAB 11/26/18 Alendronate Sodium* (Fosamax*) 70 Mg Tablet, 70 MG PO Q7D, #4 TAB 11/26/18 Aspirin* (Aspirin* EC) 81 Mg Tablet.dr, 81 MG PO DAILY, TAB 11/26/18 Diclofenac Sodium ([place]) 2 Gm Soln.pk.g., 2 PUMP TP BID 11/26/18 Pentoxifylline* (Pentoxifylline*) 400 Mg Tablet.sa, 400 MG PO WITH MEALS, TAB 11/26/18 Amlodipine Besylate* (Amlodipine Besylate*) 10 Mg Tablet, 10 MG PO DAILY, #30 TAB 11/26/18 Metformin Hcl* (Metformin Hcl*) 1,000 Mg Tablet, 1000 MG PO WITH BREAKFAST DINNE, #60 TAB 11/26/18 Metoprolol Succinate* (Toprol XL*) 25 Mg Tab.sr.24h, 25 MG PO DAILY, #30 TAB 11/26/18 Gabapentin* (Gabapentin*) 600 Mg Tablet, 600 MG PO TID, #90 TAB 11/26/18 Primary Care Provider Not On Staff Doctor Time spent on discharge: > 30 minutes Pending Labs Laboratory Tests Test 12/05/18 16:41 12/05/18 20:17 12/06/18 06:32 12/06/18 07:41 Bedside 255 117 91 Glucose mg/dL (70-220) mg/dL (70-220) mg/dL (70-220) Sodium Level 143 mmol/L (135-14 4) Potassium 4.7 Level mmol/L (3.5-5. 1) Chloride Level 110 mmol/L (97-110 ) Carbon Dioxide 30 Level mmol/L (21-31) Anion Gap 3 (5-13) Blood Urea 27 Nitrogen mg/dl (7-20) Creatinine 1.04 mg/dl (0.61-1. 24) Est Glomerular > 60 Filtrat mL/min (>60) Rate mL/min Glucose Level 74 mg/dl (70-220) Calcium Level 8.6 mg/dl (8.4-10. 2) Magnesium 1.9 Level mg/dl (1.7-2.5 ) Test 12/06/18 11:46 Bedside 128 Glucose mg/dL (70-220) GAVIN BROCK MD Dec 06, 2018 14:27
--- NOTE | 2018-12-06 14:27 | PDOCDIS ---
Discharge Instructions CONDITION [id number] Patient Condition: [id number] Good HOME CARE INSTRUCTIONS: [id number] Diet Instructions: [id number] Low Fat /Cholesterol ACTIVITY: [id number] Activity Restrictions: [id number] Slowly Increase Activity Do not Drive FOLLOW UP/APPOINTMENTS Follow-up Plan appt PCP 1wk; Dr Herbert 2wks GAVIN BROCK MD Dec 06, 2018 14:27
[2018-12-06] MEDS ORDERED: ACET325T33 PO (14:30)
[2018-12-06] MEDS ORDERED: BENA5TAB33 PO (14:30)
[2018-12-06] MEDS ORDERED: AMLO2.5T78 PO (14:30)
[2018-12-06] MEDS ORDERED: LACT1CAP28 PO (14:30)
[2018-12-06] MEDS ORDERED: CLOP75TA28 PO (14:30)
[2018-12-06] MEDS ORDERED: NITR0.4T32 SL (14:30)
[2018-12-06] MEDS ORDERED: GUAI120S26 PO (14:30)
--- NOTE | 2018-12-06 14:33 | PDOCDIS ---
Discharge Instructions CONDITION [id number] Patient Condition: [id number] Stable HOME CARE INSTRUCTIONS: [id number] Diet Instructions: [id number] Low Fat /Cholesterol ACTIVITY: [id number] Activity Restrictions: [id number] Slowly Increase Activity Do not Drive FOLLOW UP/APPOINTMENTS Follow-up Plan appt PCP 1wk; Dr Herbert 2wks OTHER ORDERS: Other Orders: do not restart Metformin till Friday. SCHOOL/WORK RELEASE May return to School/Work on: Dec 06, 2018 GAVIN BROCK MD Dec 06, 2018 14:33
--- NOTE | 2018-12-06 21:19 | RADRPT ---
Vent Rate: 63 bpm RR Interval: 0 msec CO Interval: 168 msec QRS Duration: 92 msec QT Interval: 414 msec QTC Interval: 423 msec P-R-T [place]: 66 - 39 - 76 degrees Normal sinus rhythm Septal infarct , age undetermined Abnormal ECG Electronically Signed By: Basil Vargas [id number]
--- NOTE | 2018-12-06 21:22 | RADRPT ---
Vent Rate: 73 bpm RR Interval: 0 msec CA Interval: 170 msec QRS Duration: 88 msec QT Interval: 374 msec QTC Interval: 412 msec P-R-T [place]: 60 - 36 - 81 degrees Normal sinus rhythm Anteroseptal infarct , age undetermined Abnormal ECG Electronically Signed By: Basil Vargas [id number]
[2018-12-07] MEDS ORDERED: BENAZEPRIL 5 MG TAB PO SCH (09:00)
[2018-12-07] MEDS ORDERED: AMLODIPINE 2.5 MG TAB PO SCH (09:00)
== END 2018-12-06 15:18 | disposition home or self-care (01) | DRG 853 ==
LOC: E/R 16:00 → TEL 18:46
PROVIDERS: ADMIT Internal Medicine; ATTEND Internal Medicine
PROC: B241ZZ3 Ultrasonography of Multiple Coronary Arteries, Intravascular (ICD-10-PCS; 2018-12-04)
PROC: 027135Z Dilation of Coronary Artery, Two Arteries with Two Drug-eluting Intraluminal Devices, Percutaneous Approach (ICD-10-PCS; principal; 2018-12-04 11:30)
PROC: 4A023N7 Measurement of Cardiac Sampling and Pressure, Left Heart, Percutaneous Approach (ICD-10-PCS; 2018-12-04 11:30)
PROC: B211YZZ Fluoroscopy of Multiple Coronary Arteries using Other Contrast (ICD-10-PCS; 2018-12-04 11:30)
DX: A41.9 Sepsis, unspecified organism (principal); I21.A1 Myocardial infarction type 2; J18.9 Pneumonia, unspecified organism; N17.9 Acute kidney failure, unspecified; J98.11 Atelectasis; J06.9 Acute upper respiratory infection, unspecified; I25.5 Ischemic cardiomyopathy; I25.10 Atherosclerotic heart disease of native coronary artery without angina pectoris; E11.51 Type 2 diabetes mellitus with diabetic peripheral angiopathy without gangrene; E78.5 Hyperlipidemia, unspecified; D50.9 Iron deficiency anemia, unspecified; E11.9 Type 2 diabetes mellitus without complications; I10 Essential (primary) hypertension; J44.9 Chronic obstructive pulmonary disease, unspecified; M81.0 Age-related osteoporosis without current pathological fracture; Z87.891 Personal history of nicotine dependence; Z79.82 Long term (current) use of aspirin; Z79.4 Long term (current) use of insulin
CPT/HCPCS: 36415; 71045; 74177; 80048; 80053; 80061; 81001; 82550; 82553; 82728; 82947; 82962; 83036; 83540; 83605; 83690; 83735; 83880; 84100; 84153; 84154; 84439; 84443; 84481; 84484; 85025; 85610; 85730; 86674; 87040; 87045; 87070; 87075; 87086; 87177; 87275; 87276; 87279; 87280; 87400; 87880; 92978; 93005; 93306; 93458; 94644; 96365; 96375; 97110; 97116; 97162; 97530; C1876; C1887; C9600; C9601; J0360; J0456; J0692; J0696; J1644; J1650; J1815; J1956; J2250; J2405; J2543; J2930; J3010; J3370; J7030; J7040; J7042; J7050; Q9967